=== PATIENT | male | born 1970 ===

== ENCOUNTER 2020-09-09 10:37 | Outpatient (REF) | payer MEDICARE, MEDICAID, SELFPAY ==
--- NOTE | 2020-09-09 11:28 | XR_ITS ---
EXAMINATION: XR TIBIA AND FIBULA, LEFT CLINICAL INFORMATION: Localized swelling, mass or lump. COMPARISON: None. TECHNIQUE: AP and lateral views of the left tibia and fibula were obtained. FINDINGS: Bone alignment is normal. No fracture, dislocation or bone lesion is seen. The joint spaces are normal. There is thinning of the soft tissues of the medial posterior lower leg. No soft tissue mass is not appreciated. XR/XR tibia fibula LT 2V IMPRESSION: Thinning or loss of the soft tissues of the posterior medial lower leg. Adjacent bony structures are unremarkable.
[2020-09-09 11:50] LABS: MANUAL DIFF FLAG NO
[2020-09-09 11:54] LABS: Basophils Percent Auto 0.5 % (0-2); Eosinophils Absolute Auto 0.1 X10*3/uL (0.0-0.4); Eosinophils Percent Auto 1.3 % (0-4); Hematocrit 42.4 % (42-52); Hemoglobin 13.3 g/dl (14.0-18.0); Imm Gran Abs Auto 0.01 X10*3/uL (0.00-0.03); Imm Gran Pct Auto 0.2 % (0.0-0.4); Lymphocytes Absolute Auto 1.9 X10*3/uL (1.2-4.9); Lymphocytes Percent Auto 31.3 % (20-40); Mean Corpuscular HGB Conc 31.4 g/dl (31.0-36.0); Mean Corpuscular Hemoglobin 27.7 pg (27.0-33.0); Mean Corpuscular Volume 88.1 fL (80-98); Monocytes Absolute Auto 0.4 X10*3/uL (0.1-1.2); Monocytes Percent Auto 7.2 % (2-11); Neutrophils Absolute Auto 3.6 X10*3/uL (2.0-8.3); Neutrophils Percent Auto 59.5 % (45-73); Platelet Count 241 X10*3/uL (160-400); Red Blood Count 4.81 X10*6/uL (4.60-5.80); Red Cell Distribution Width 14.5 % (11.0-16.0)
[2020-09-09 12:39] LABS: Anion Gap 17 (12-20); Blood Urea Nitrogen 17 mg/dL (9-16); Calcium 9.7 mg/dL (8.4-10.2); Carbon Dioxide 22 mmol/L (22-29); Chloride 104 mmol/L (96-108); Estimated Glomerular Filt Rate > 60; Glucose Fasting 227 mg/dL (60-99); Potassium 4.5 mmol/l (3.3-5.1); Sodium 138 mmol/L (135-145)
== END 2020-09-09 10:38 | disposition home or self-care (01) ==
LOC: HO.LAB 10:37
PROVIDERS: PCP Internal Medicine; Referring Provider Clinical Nurse Specialist Psychiatric/Mental Health, Adult; Visit Provider Nurse Practitioner Family
DX: R22.42 Localized swelling, mass and lump, left lower limb (principal); Z79.899 Other long term (current) drug therapy
CPT/HCPCS: 36415; 73590; 80048; 85025

== ENCOUNTER 2020-10-14 13:12 | Outpatient (REF) | payer MEDICARE, MEDICAID, SELFPAY ==
[2020-10-14 14:11] LABS: MANUAL DIFF FLAG NO
[2020-10-14 14:14] LABS: Basophils Percent Auto 0.5 % (0-2); Eosinophils Absolute Auto 0.1 X10*3/uL (0.0-0.4); Eosinophils Percent Auto 1.5 % (0-4); Hematocrit 40.2 % (42-52); Hemoglobin 13.2 g/dl (14.0-18.0); Imm Gran Abs Auto 0.02 X10*3/uL (0.00-0.03); Imm Gran Pct Auto 0.3 % (0.0-0.4); Lymphocytes Absolute Auto 2.5 X10*3/uL (1.2-4.9); Lymphocytes Percent Auto 32.3 % (20-40); Mean Corpuscular HGB Conc 32.8 g/dl (31.0-36.0); Mean Corpuscular Hemoglobin 28.8 pg (27.0-33.0); Mean Corpuscular Volume 87.6 fL (80-98); Mean Platelet Volume 12.9 fL (9.4-12.4); Monocytes Absolute Auto 0.6 X10*3/uL (0.1-1.2); Monocytes Percent Auto 7.6 % (2-11); Neutrophils Absolute Auto 4.5 X10*3/uL (2.0-8.3); Neutrophils Percent Auto 57.8 % (45-73); Platelet Count 246 X10*3/uL (160-400); Red Blood Count 4.59 X10*6/uL (4.60-5.80); Red Cell Distribution Width 14.8 % (11.0-16.0); White Blood Count 7.8 X10*3/uL (4.8-10.8)
== END 2020-10-14 13:13 | disposition home or self-care (01) ==
LOC: HO.LABR 13:12
PROVIDERS: PCP Internal Medicine; Visit Provider Clinical Nurse Specialist Psychiatric/Mental Health, Adult
DX: Z79.899 Other long term (current) drug therapy (principal)
CPT/HCPCS: 36415; 85025

== ENCOUNTER → 2020-11-10 12:15 | Outpatient (BNVA) | payer MEDICARE, MEDICAID, SELFPAY | PROVIDERS: PCP Internal Medicine; Referring Provider Internal Medicine; Visit Provider Internal Medicine Endocrinology, Diabetes & Metabolism | DX: Z13.89 Encounter for screening for other disorder (principal) | CPT/HCPCS: Q3014 ==

== ENCOUNTER 2020-11-17 11:10 | Outpatient (REF) | payer MEDICARE, MEDICAID, SELFPAY ==
[2020-11-17 11:55] LABS: MANUAL DIFF FLAG NO
[2020-11-17 11:57] LABS: Basophils Percent Auto 0.6 % (0-2); Eosinophils Absolute Auto 0.1 X10*3/uL (0.0-0.4); Hematocrit 41.9 % (42-52); Hemoglobin 13.3 g/dl (14.0-18.0); Imm Gran Abs Auto 0.02 X10*3/uL (0.00-0.03); Imm Gran Pct Auto 0.3 % (0.0-0.4); Lymphocytes Absolute Auto 2.3 X10*3/uL (1.2-4.9); Lymphocytes Percent Auto 33.7 % (20-40); Mean Corpuscular HGB Conc 31.7 g/dl (31.0-36.0); Mean Corpuscular Hemoglobin 27.8 pg (27.0-33.0); Mean Corpuscular Volume 87.5 fL (80-98); Mean Platelet Volume 12.5 fL (9.4-12.4); Monocytes Absolute Auto 0.5 X10*3/uL (0.1-1.2); Neutrophils Absolute Auto 3.9 X10*3/uL (2.0-8.3); Neutrophils Percent Auto 56.4 % (45-73); Platelet Count 222 X10*3/uL (160-400); Red Blood Count 4.79 X10*6/uL (4.60-5.80); Red Cell Distribution Width 14.5 % (11.0-16.0); White Blood Count 6.9 X10*3/uL (4.8-10.8)
== END 2020-11-17 11:11 | disposition home or self-care (01) ==
LOC: HO.LABR 11:10
PROVIDERS: PCP Internal Medicine; Visit Provider Clinical Nurse Specialist Psychiatric/Mental Health, Adult
DX: Z79.899 Other long term (current) drug therapy (principal)
CPT/HCPCS: 36415; 85025

== ENCOUNTER 2020-12-19 09:55 | Outpatient (REF) | payer MEDICARE, MEDICAID, SELFPAY ==
[2020-12-19 10:48] LABS: Basophils Percent Auto 0.6 % (0-2); Eosinophils Absolute Auto 0.1 X10*3/uL (0.0-0.4); Eosinophils Percent Auto 1.4 % (0-4); Hematocrit 38.8 % (42-52); Hemoglobin 12.3 g/dl (14.0-18.0); Imm Gran Abs Auto 0.02 X10*3/uL (0.00-0.03); Imm Gran Pct Auto 0.3 % (0.0-0.4); Lymphocytes Percent Auto 30.4 % (20-40); MANUAL DIFF FLAG NO; Mean Corpuscular HGB Conc 31.7 g/dl (31.0-36.0); Mean Corpuscular Hemoglobin 27.6 pg (27.0-33.0); Mean Corpuscular Volume 87.2 fL (80-98); Mean Platelet Volume 12.2 fL (9.4-12.4); Monocytes Absolute Auto 0.6 X10*3/uL (0.1-1.2); Monocytes Percent Auto 8.7 % (2-11); Neutrophils Absolute Auto 3.8 X10*3/uL (2.0-8.3); Neutrophils Percent Auto 58.6 % (45-73); Platelet Count 229 X10*3/uL (160-400); Red Blood Count 4.45 X10*6/uL (4.60-5.80); Red Cell Distribution Width 14.2 % (11.0-16.0); White Blood Count 6.5 X10*3/uL (4.8-10.8)
== END 2020-12-19 09:56 | disposition home or self-care (01) ==
LOC: HO.LAB 09:55
PROVIDERS: Visit Provider Clinical Nurse Specialist Psychiatric/Mental Health, Adult
DX: Z79.899 Other long term (current) drug therapy (principal)
CPT/HCPCS: 36415; 85025

== ENCOUNTER 2021-01-12 13:08 | Outpatient (REF) | payer MEDICARE, MEDICAID, SELFPAY ==
[2021-01-12 13:35] LABS: MANUAL DIFF FLAG NO
[2021-01-12 13:38] LABS: Basophils Percent Auto 0.5 % (0-2); Eosinophils Absolute Auto 0.1 X10*3/uL (0.0-0.4); Eosinophils Percent Auto 1.4 % (0-4); Hematocrit 39.9 % (42-52); Hemoglobin 12.9 g/dl (14.0-18.0); Imm Gran Abs Auto 0.02 X10*3/uL (0.00-0.03); Imm Gran Pct Auto 0.2 % (0.0-0.4); Lymphocytes Absolute Auto 2.6 X10*3/uL (1.2-4.9); Lymphocytes Percent Auto 30.7 % (20-40); Mean Corpuscular HGB Conc 32.3 g/dl (31.0-36.0); Mean Corpuscular Hemoglobin 28.2 pg (27.0-33.0); Mean Corpuscular Volume 87.3 fL (80-98); Mean Platelet Volume 11.9 fL (9.4-12.4); Monocytes Absolute Auto 0.6 X10*3/uL (0.1-1.2); Monocytes Percent Auto 6.4 % (2-11); Neutrophils Absolute Auto 5.2 X10*3/uL (2.0-8.3); Neutrophils Percent Auto 60.8 % (45-73); Platelet Count 234 X10*3/uL (160-400); Red Blood Count 4.57 X10*6/uL (4.60-5.80); Red Cell Distribution Width 14.3 % (11.0-16.0); White Blood Count 8.5 X10*3/uL (4.8-10.8)
[2021-01-12 13:58] LABS: Estimated Average Glucose 209 mg/dL; Hemoglobin A1c % 8.9 %
[2021-01-12 14:16] LABS: Alanine Aminotransferase 28 U/L (0-40); Albumin Level 4.4 g/dL (3.5-5.0); Alkaline Phosphatase 41 U/L (39-117); Anion Gap 15 (12-20); Aspartate Amino Transferase 17 U/L (5-37); Bilirubin Total 0.3 mg/dL (0.0-1.0); Blood Urea Nitrogen 19 mg/dL (9-16); Calcium 9.2 mg/dL (8.4-10.2); Carbon Dioxide 26 mmol/L (22-29); Chloride 102 mmol/L (96-108); Cholesterol 145 mg/dL; Estimated Glomerular Filt Rate > 60; Glucose Fasting 183 mg/dL (60-99); HDL Cholesterol 21 mg/dL; Potassium 4.4 mmol/L (3.3-5.1); Sodium 139 mmol/L (135-145); Total Protein 7.8 g/dL (6.5-8.0); Triglycerides 465 mg/dL
[2021-01-12 14:52] LABS: Creatinine Urine 36.53 mg/dL; Microalbumin Urine < 5.0 mg/L
[2021-01-13 07:32] LABS: LDL Cholesterol Direct 89 mg/dL (<100)
== END 2021-01-12 13:09 | disposition home or self-care (01) ==
LOC: HO.LAB 13:08
PROVIDERS: Internal Medicine Endocrinology, Diabetes & Metabolism; PCP Internal Medicine; Visit Provider Clinical Nurse Specialist Psychiatric/Mental Health, Adult
DX: Z79.899 Other long term (current) drug therapy (principal); E11.65 Type 2 diabetes mellitus with hyperglycemia
CPT/HCPCS: 36415; 80053; 80061; 82043; 83036; 83721; 85025

== ENCOUNTER 2021-02-16 12:40 | Outpatient (REF) | payer MEDICARE, MEDICAID, SELFPAY | END 2021-02-16 12:41 | disposition home or self-care (01) | LOC: HO.LABR 12:40 | PROVIDERS: PCP Internal Medicine; Visit Provider Clinical Nurse Specialist Psychiatric/Mental Health, Adult | DX: Z13.89 Encounter for screening for other disorder (principal) | CPT/HCPCS: 36415; 85025 ==

== ENCOUNTER 2021-02-19 12:34 | Outpatient (REF) | payer MEDICARE, MEDICAID, SELFPAY ==
[2021-02-19 13:17] LABS: MANUAL DIFF FLAG NO
[2021-02-19 13:23] LABS: Basophils Percent Auto 0.6 % (0-2); Eosinophils Absolute Auto 0.1 X10*3/uL (0.0-0.4); Eosinophils Percent Auto 1.5 % (0-4); Hematocrit 42.2 % (42-52); Hemoglobin 13.3 g/dl (14.0-18.0); Imm Gran Abs Auto 0.01 X10*3/uL (0.00-0.03); Imm Gran Pct Auto 0.2 % (0.0-0.4); Lymphocytes Absolute Auto 2.1 X10*3/uL (1.2-4.9); Lymphocytes Percent Auto 33.9 % (20-40); Mean Corpuscular HGB Conc 31.5 g/dl (31.0-36.0); Mean Corpuscular Hemoglobin 27.6 pg (27.0-33.0); Mean Corpuscular Volume 87.6 fL (80-98); Mean Platelet Volume 11.8 fL (9.4-12.4); Monocytes Absolute Auto 0.4 X10*3/uL (0.1-1.2); Neutrophils Absolute Auto 3.5 X10*3/uL (2.0-8.3); Neutrophils Percent Auto 56.8 % (45-73); Platelet Count 241 X10*3/uL (160-400); Red Blood Count 4.82 X10*6/uL (4.60-5.80); Red Cell Distribution Width 14.1 % (11.0-16.0); White Blood Count 6.2 X10*3/uL (4.8-10.8)
== END 2021-02-19 12:35 | disposition home or self-care (01) ==
LOC: HO.LABR 12:34
PROVIDERS: PCP Internal Medicine; Visit Provider Clinical Nurse Specialist Psychiatric/Mental Health, Adult
DX: Z79.899 Other long term (current) drug therapy (principal)
CPT/HCPCS: 36415; 85025

== ENCOUNTER 2021-03-10 11:35 | Outpatient (REF) | payer MEDICARE, MEDICAID, SELFPAY ==
[2021-03-10 12:00] LABS: MANUAL DIFF FLAG NO
[2021-03-10 12:06] LABS: Basophils Percent Auto 0.3 % (0-2); Eosinophils Absolute Auto 0.1 X10*3/uL (0.0-0.4); Eosinophils Percent Auto 0.8 % (0-4); Hematocrit 37.6 % (42-52); Hemoglobin 12.1 g/dl (14.0-18.0); Imm Gran Abs Auto 0.05 X10*3/uL (0.00-0.03); Imm Gran Pct Auto 0.4 % (0.0-0.4); Lymphocytes Absolute Auto 1.8 X10*3/uL (1.2-4.9); Lymphocytes Percent Auto 15.8 % (20-40); Mean Corpuscular HGB Conc 32.2 g/dl (31.0-36.0); Mean Corpuscular Hemoglobin 27.9 pg (27.0-33.0); Mean Corpuscular Volume 86.8 fL (80-98); Mean Platelet Volume 12.2 fL (9.4-12.4); Monocytes Absolute Auto 0.9 X10*3/uL (0.1-1.2); Monocytes Percent Auto 7.6 % (2-11); Neutrophils Absolute Auto 8.6 X10*3/uL (2.0-8.3); Neutrophils Percent Auto 75.1 % (45-73); Platelet Count 233 X10*3/uL (160-400); Red Blood Count 4.33 X10*6/uL (4.60-5.80); Red Cell Distribution Width 14.1 % (11.0-16.0); White Blood Count 11.5 X10*3/uL (4.8-10.8)
== END 2021-03-10 11:36 | disposition home or self-care (01) ==
LOC: HO.LABR 11:35
PROVIDERS: PCP Internal Medicine; Visit Provider Clinical Nurse Specialist Psychiatric/Mental Health, Adult
DX: Z79.899 Other long term (current) drug therapy (principal)
CPT/HCPCS: 36415; 85025

== ENCOUNTER → 2021-03-25 14:34 | Outpatient (BNVA) | payer MEDICARE, MEDICAID, SELFPAY | PROVIDERS: PCP Internal Medicine; Visit Provider Internal Medicine Endocrinology, Diabetes & Metabolism | DX: E11.65 Type 2 diabetes mellitus with hyperglycemia (principal); E66.9 Obesity, unspecified; I10 Essential (primary) hypertension; E78.5 Hyperlipidemia, unspecified; E55.9 Vitamin D deficiency, unspecified; Z79.4 Long term (current) use of insulin | CPT/HCPCS: 82947; 99212 ==

== ENCOUNTER 2021-04-07 11:25 | Outpatient (REF) | payer MEDICARE, MEDICAID, SELFPAY ==
[2021-04-07 12:29] LABS: MANUAL DIFF FLAG NO
[2021-04-07 12:43] LABS: Basophils Percent Auto 0.6 % (0-2); Eosinophils Absolute Auto 0.1 X10*3/uL (0.0-0.4); Eosinophils Percent Auto 1.5 % (0-4); Hemoglobin 12.4 g/dl (14.0-18.0); Imm Gran Abs Auto 0.02 X10*3/uL (0.00-0.03); Imm Gran Pct Auto 0.4 % (0.0-0.4); Lymphocytes Absolute Auto 1.5 X10*3/uL (1.2-4.9); Mean Corpuscular Hemoglobin 26.8 pg (27.0-33.0); Mean Corpuscular Volume 86.6 fL (80-98); Mean Platelet Volume 12.5 fL (9.4-12.4); Monocytes Absolute Auto 0.5 X10*3/uL (0.1-1.2); Monocytes Percent Auto 9.4 % (2-11); Neutrophils Absolute Auto 3.3 X10*3/uL (2.0-8.3); Neutrophils Percent Auto 60.1 % (45-73); Platelet Count 214 X10*3/uL (160-400); Red Blood Count 4.62 X10*6/uL (4.60-5.80); Red Cell Distribution Width 14.5 % (11.0-16.0); White Blood Count 5.4 X10*3/uL (4.8-10.8)
[2021-04-07 12:58] LABS: Estimated Average Glucose 217 mg/dL; Hemoglobin A1C 243.0676 umol/L; Hemoglobin A1c % 9.2 %
[2021-04-07 13:19] LABS: Alanine Aminotransferase 28 U/L (0-40); Albumin Level 4.3 g/dL (3.5-5.0); Alkaline Phosphatase 42 U/L (39-117); Anion Gap 14 (12-20); Aspartate Amino Transferase 16 U/L (5-37); Bilirubin Total 0.4 mg/dL (0.0-1.0); Blood Urea Nitrogen 16 mg/dL (9-16); Calcium 9.8 mg/dL (8.4-10.2); Carbon Dioxide 27 mmol/L (22-29); Chloride 104 mmol/L (96-108); Cholesterol 133 mg/dL; Estimated Glomerular Filt Rate > 60; Glucose Random 197 mg/dL (60-115); Iron 61 mcg/dL (45-160); Percent Iron Saturation 15 % (15-50); Potassium 4.4 mmol/L (3.3-5.1); Sodium 141 mmol/L (135-145); Total Iron Binding Capacity 417 mcg/dL (228-428); Total Protein 7.4 g/dL (6.5-8.0); Triglycerides 327 mg/dL; Unsaturated Iron Binding 356 ug/dL
[2021-04-07 13:32] LABS: HDL Cholesterol 22 mg/dL; LDL Cholesterol Calculated 46 mg/dl
[2021-04-07 13:36] LABS: Ferritin 66 ng/mL (20-250)
[2021-04-07 13:44] LABS: Folate 14.8 ng/mL (> or = 4.0); Vitamin B12 409 pg/mL (200-900)
== END 2021-04-07 11:26 | disposition home or self-care (01) ==
LOC: HO.LABR 11:25
PROVIDERS: PCP Internal Medicine; Visit Provider Clinical Nurse Specialist Psychiatric/Mental Health, Adult
DX: Z79.899 Other long term (current) drug therapy (principal)
CPT/HCPCS: 36415; 80053; 80061; 82607; 82728; 82746; 83036; 83540; 84443; 85025

== ENCOUNTER 2021-05-05 12:25 | Outpatient (REF) | payer MEDICARE, MEDICAID, SELFPAY ==
[2021-05-05 13:19] LABS: MANUAL DIFF FLAG NO
[2021-05-05 13:34] LABS: Basophils Percent Auto 0.5 % (0-2); Eosinophils Absolute Auto 0.1 X10*3/uL (0.0-0.4); Eosinophils Percent Auto 1.9 % (0-4); Hemoglobin 12.5 g/dl (14.0-18.0); Imm Gran Abs Auto 0.01 X10*3/uL (0.00-0.03); Imm Gran Pct Auto 0.2 % (0.0-0.4); Lymphocytes Absolute Auto 2.1 X10*3/uL (1.2-4.9); Lymphocytes Percent Auto 36.1 % (20-40); Mean Corpuscular HGB Conc 31.3 g/dl (31.0-36.0); Mean Corpuscular Hemoglobin 27.1 pg (27.0-33.0); Mean Corpuscular Volume 86.8 fL (80-98); Mean Platelet Volume 12.1 fL (9.4-12.4); Monocytes Absolute Auto 0.5 X10*3/uL (0.1-1.2); Monocytes Percent Auto 8.3 % (2-11); Neutrophils Absolute Auto 3.1 X10*3/uL (2.0-8.3); Platelet Count 251 X10*3/uL (160-400); Red Blood Count 4.61 X10*6/uL (4.60-5.80); Red Cell Distribution Width 14.5 % (11.0-16.0); White Blood Count 5.9 X10*3/uL (4.8-10.8)
== END 2021-05-05 12:26 | disposition home or self-care (01) ==
LOC: HO.LABR 12:25
PROVIDERS: PCP Internal Medicine; Visit Provider Clinical Nurse Specialist Psychiatric/Mental Health, Adult
DX: Z79.899 Other long term (current) drug therapy (principal)
CPT/HCPCS: 36415; 85025

== ENCOUNTER 2021-06-05 09:30 | Outpatient (REF) | payer MEDICARE, MEDICAID, SELFPAY ==
[2021-06-05 10:25] LABS: MANUAL DIFF FLAG NO
[2021-06-05 10:28] LABS: Basophils Percent Auto 0.5 % (0-2); Eosinophils Absolute Auto 0.1 X10*3/uL (0.0-0.4); Hematocrit 40.8 % (42-52); Hemoglobin 12.9 g/dl (14.0-18.0); Imm Gran Abs Auto 0.02 X10*3/uL (0.00-0.03); Imm Gran Pct Auto 0.3 % (0.0-0.4); Lymphocytes Absolute Auto 2.5 X10*3/uL (1.2-4.9); Lymphocytes Percent Auto 42.1 % (20-40); Mean Corpuscular HGB Conc 31.6 g/dl (31.0-36.0); Mean Corpuscular Hemoglobin 27.3 pg (27.0-33.0); Mean Corpuscular Volume 86.3 fL (80-98); Mean Platelet Volume 11.9 fL (9.4-12.4); Monocytes Absolute Auto 0.5 X10*3/uL (0.1-1.2); Monocytes Percent Auto 8.7 % (2-11); Neutrophils Absolute Auto 2.7 X10*3/uL (2.0-8.3); Neutrophils Percent Auto 46.4 % (45-73); Platelet Count 230 X10*3/uL (160-400); Red Blood Count 4.73 X10*6/uL (4.60-5.80); Red Cell Distribution Width 14.4 % (11.0-16.0); White Blood Count 5.9 X10*3/uL (4.8-10.8)
== END 2021-06-05 09:31 | disposition home or self-care (01) ==
LOC: HO.LABR 09:30
PROVIDERS: PCP Internal Medicine; Visit Provider Clinical Nurse Specialist Psychiatric/Mental Health, Adult
DX: Z79.899 Other long term (current) drug therapy (principal)
CPT/HCPCS: 36415; 85025

== ENCOUNTER 2021-06-30 11:32 | Outpatient (REF) | payer MEDICARE, MEDICAID, SELFPAY ==
[2021-06-30 12:16] LABS: MANUAL DIFF FLAG NO
[2021-06-30 12:19] LABS: Basophils Percent Auto 0.6 % (0-2); Eosinophils Absolute Auto 0.1 X10*3/uL (0.0-0.4); Eosinophils Percent Auto 2.1 % (0-4); Hematocrit 42.4 % (42-52); Hemoglobin 13.5 g/dl (14.0-18.0); Imm Gran Abs Auto 0.02 X10*3/uL (0.00-0.03); Imm Gran Pct Auto 0.3 % (0.0-0.4); Lymphocytes Absolute Auto 2.3 X10*3/uL (1.2-4.9); Lymphocytes Percent Auto 37.5 % (20-40); Mean Corpuscular HGB Conc 31.8 g/dl (31.0-36.0); Mean Corpuscular Hemoglobin 27.2 pg (27.0-33.0); Mean Corpuscular Volume 85.5 fL (80-98); Mean Platelet Volume 12.1 fL (9.4-12.4); Monocytes Absolute Auto 0.4 X10*3/uL (0.1-1.2); Monocytes Percent Auto 6.7 % (2-11); Neutrophils Absolute Auto 3.3 X10*3/uL (2.0-8.3); Neutrophils Percent Auto 52.8 % (45-73); Platelet Count 231 X10*3/uL (160-400); Red Blood Count 4.96 X10*6/uL (4.60-5.80); Red Cell Distribution Width 14.5 % (11.0-16.0); White Blood Count 6.2 X10*3/uL (4.8-10.8)
== END 2021-06-30 11:33 | disposition home or self-care (01) ==
LOC: HO.LABR 11:32
PROVIDERS: PCP Internal Medicine; Visit Provider Clinical Nurse Specialist Psychiatric/Mental Health, Adult
DX: Z79.899 Other long term (current) drug therapy (principal)
CPT/HCPCS: 36415; 85025

== ENCOUNTER 2021-07-30 10:49 | Outpatient (REF) | payer MEDICARE, MEDICAID, SELFPAY ==
[2021-07-30 14:17] LABS: MANUAL DIFF FLAG NO
[2021-07-30 14:23] LABS: Basophils Percent Auto 0.7 % (0-2); Eosinophils Absolute Auto 0.2 X10*3/uL (0.0-0.4); Eosinophils Percent Auto 3.3 % (0-4); Hematocrit 40.9 % (42-52); Imm Gran Abs Auto 0.01 X10*3/uL (0.00-0.03); Imm Gran Pct Auto 0.2 % (0.0-0.4); Lymphocytes Absolute Auto 2.2 X10*3/uL (1.2-4.9); Mean Corpuscular HGB Conc 31.8 g/dl (31.0-36.0); Mean Corpuscular Hemoglobin 27.5 pg (27.0-33.0); Mean Corpuscular Volume 86.5 fL (80-98); Mean Platelet Volume 12.5 fL (9.4-12.4); Monocytes Absolute Auto 0.5 X10*3/uL (0.1-1.2); Neutrophils Absolute Auto 2.5 X10*3/uL (2.0-8.3); Neutrophils Percent Auto 45.8 % (45-73); Platelet Count 229 X10*3/uL (160-400); Red Blood Count 4.73 X10*6/uL (4.60-5.80); Red Cell Distribution Width 14.6 % (11.0-16.0); White Blood Count 5.4 X10*3/uL (4.8-10.8)
== END 2021-07-30 10:50 | disposition home or self-care (01) ==
LOC: HO.10HDL 10:49
PROVIDERS: Visit Provider Clinical Nurse Specialist Psychiatric/Mental Health, Adult
DX: Z79.899 Other long term (current) drug therapy (principal)
CPT/HCPCS: 36415; 85025

== ENCOUNTER 2021-08-27 12:07 | Outpatient (REF) | payer MEDICARE, MEDICAID, SELFPAY ==
[2021-08-27 13:39] LABS: MANUAL DIFF FLAG NO
[2021-08-27 13:48] LABS: Basophils Absolute Auto 0.1 X10*3/uL (0.0-0.2); Basophils Percent Auto 0.7 % (0-2); Eosinophils Absolute Auto 0.1 X10*3/uL (0.0-0.4); Eosinophils Percent Auto 1.5 % (0-4); Hematocrit 41.1 % (42-52); Hemoglobin 13.2 g/dl (14.0-18.0); Imm Gran Abs Auto 0.03 X10*3/uL (0.00-0.03); Imm Gran Pct Auto 0.4 % (0.0-0.4); Lymphocytes Absolute Auto 2.1 X10*3/uL (1.2-4.9); Mean Corpuscular HGB Conc 32.1 g/dl (31.0-36.0); Mean Corpuscular Hemoglobin 27.6 pg (27.0-33.0); Mean Platelet Volume 11.9 fL (9.4-12.4); Monocytes Absolute Auto 0.5 X10*3/uL (0.1-1.2); Monocytes Percent Auto 8.1 % (2-11); Neutrophils Absolute Auto 3.9 X10*3/uL (2.0-8.3); Neutrophils Percent Auto 58.3 % (45-73); Platelet Count 234 X10*3/uL (160-400); Red Blood Count 4.78 X10*6/uL (4.60-5.80); Red Cell Distribution Width 14.4 % (11.0-16.0); White Blood Count 6.7 X10*3/uL (4.8-10.8)
== END 2021-08-27 12:08 | disposition home or self-care (01) ==
LOC: HO.10HDL 12:07
PROVIDERS: Visit Provider Clinical Nurse Specialist Psychiatric/Mental Health, Adult
DX: Z79.899 Other long term (current) drug therapy (principal)
CPT/HCPCS: 36415; 85025

== ENCOUNTER → 2021-09-18 10:52 | Outpatient (BNVA) | payer MEDICARE, MEDICAID, SELFPAY | PROVIDERS: PCP Internal Medicine; Visit Provider Nurse Practitioner Gerontology | DX: E11.65 Type 2 diabetes mellitus with hyperglycemia (principal); E66.9 Obesity, unspecified; E55.9 Vitamin D deficiency, unspecified; E78.5 Hyperlipidemia, unspecified; I10 Essential (primary) hypertension; Z79.4 Long term (current) use of insulin | CPT/HCPCS: 82947; 83036; 99212 ==

== ENCOUNTER 2021-09-22 12:48 | Outpatient (REF) | payer MEDICARE, MEDICAID, SELFPAY ==
[2021-09-22 13:58] LABS: MANUAL DIFF FLAG NO
[2021-09-22 14:08] LABS: Basophils Percent Auto 0.7 % (0-2); Eosinophils Absolute Auto 0.1 X10*3/uL (0.0-0.4); Eosinophils Percent Auto 1.6 % (0-4); Hematocrit 38.9 % (42.0-52.0); Hemoglobin 12.3 g/dl (14.0-18.0); Imm Gran Abs Auto 0.02 X10*3/uL (0.00-0.03); Imm Gran Pct Auto 0.4 % (0.0-0.4); Lymphocytes Absolute Auto 1.9 X10*3/uL (1.2-4.9); Lymphocytes Percent Auto 33.9 % (20-40); Mean Corpuscular HGB Conc 31.6 g/dl (31.0-36.0); Mean Corpuscular Hemoglobin 27.5 pg (27.0-33.0); Mean Corpuscular Volume 86.8 fL (80.0-98.0); Mean Platelet Volume 12.1 fL (9.4-12.4); Monocytes Absolute Auto 0.4 X10*3/uL (0.1-1.2); Monocytes Percent Auto 6.7 % (2-11); Neutrophils Absolute Auto 3.1 x10*3/uL (2.0-8.3); Neutrophils Percent Auto 56.7 % (45-73); Platelet Count 223 X10*3/uL (160-400); Red Blood Count 4.48 X10*6/uL (4.60-5.80); Red Cell Distribution Width 14.4 % (11.0-16.0); White Blood Count 5.5 X10*3/uL (4.8-10.8)
== END 2021-09-22 12:49 | disposition home or self-care (01) ==
LOC: HO.10HDL 12:48
PROVIDERS: Visit Provider Clinical Nurse Specialist Psychiatric/Mental Health, Adult
DX: Z79.899 Other long term (current) drug therapy (principal)
CPT/HCPCS: 36415; 85025

== ENCOUNTER 2021-10-22 09:53 | Outpatient (REF) | payer MEDICARE, MEDICAID, SELFPAY ==
[2021-10-22 10:32] LABS: MANUAL DIFF FLAG NO
[2021-10-22 10:41] LABS: Basophils Percent Auto 0.4 % (0-2); Eosinophils Absolute Auto 0.1 X10*3/uL (0.0-0.4); Eosinophils Percent Auto 1.9 % (0-4); Imm Gran Abs Auto 0.02 X10*3/uL (0.00-0.03); Imm Gran Pct Auto 0.4 % (0.0-0.4); Lymphocytes Absolute Auto 2.2 X10*3/uL (1.2-4.9); Lymphocytes Percent Auto 37.8 % (20-40); Mean Corpuscular HGB Conc 31.6 g/dl (31.0-36.0); Mean Corpuscular Hemoglobin 27.5 pg (27.0-33.0); Mean Platelet Volume 11.9 fL (9.4-12.4); Monocytes Absolute Auto 0.6 X10*3/uL (0.1-1.2); Monocytes Percent Auto 9.6 % (2-11); Neutrophils Absolute Auto 2.9 x10*3/uL (2.0-8.3); Neutrophils Percent Auto 49.9 % (45-73); Platelet Count 239 X10*3/uL (160-400); Red Blood Count 4.37 X10*6/uL (4.60-5.80); Red Cell Distribution Width 13.9 % (11.0-16.0); White Blood Count 5.7 X10*3/uL (4.8-10.8)
== END 2021-10-22 09:54 | disposition home or self-care (01) ==
LOC: HO.10HDL 09:53
PROVIDERS: Visit Provider Clinical Nurse Specialist Psychiatric/Mental Health, Adult
DX: Z79.899 Other long term (current) drug therapy (principal)
CPT/HCPCS: 36415; 85025

== ENCOUNTER 2021-12-02 10:56 | Outpatient (REF) | payer MEDICARE, MEDICAID, SELFPAY ==
[2021-12-02 13:57] LABS: MANUAL DIFF FLAG NO
[2021-12-02 14:05] LABS: Basophils Absolute Auto 0.1 X10*3/uL (0.0-0.2); Basophils Percent Auto 0.8 % (0-2); Eosinophils Absolute Auto 0.2 X10*3/uL (0.0-0.4); Eosinophils Percent Auto 3.7 % (0-4); Hematocrit 43.1 % (42.0-52.0); Hemoglobin 13.2 g/dl (14.0-18.0); Imm Gran Abs Auto 0.02 X10*3/uL (0.00-0.03); Imm Gran Pct Auto 0.3 % (0.0-0.4); Lymphocytes Absolute Auto 2.1 X10*3/uL (1.2-4.9); Lymphocytes Percent Auto 35.8 % (20-40); Mean Corpuscular HGB Conc 30.6 g/dl (31.0-36.0); Mean Corpuscular Volume 88.1 fL (80.0-98.0); Mean Platelet Volume 12.8 fL (9.4-12.4); Monocytes Absolute Auto 0.5 X10*3/uL (0.1-1.2); Monocytes Percent Auto 7.9 % (2-11); Neutrophils Absolute Auto 3.1 x10*3/uL (2.0-8.3); Neutrophils Percent Auto 51.5 % (45-73); Platelet Count 242 X10*3/uL (160-400); Red Blood Count 4.89 X10*6/uL (4.60-5.80); Red Cell Distribution Width 14.3 % (11.0-16.0)
== END 2021-12-02 10:57 | disposition home or self-care (01) ==
LOC: HO.10HDL 10:56
PROVIDERS: Visit Provider Clinical Nurse Specialist Psychiatric/Mental Health, Adult
DX: Z79.899 Other long term (current) drug therapy (principal)
CPT/HCPCS: 36415; 85025

== ENCOUNTER 2021-12-25 09:23 | Outpatient (REF) | payer MEDICARE, MEDICAID, SELFPAY ==
[2021-12-25 10:53] LABS: MANUAL DIFF FLAG NO
[2021-12-25 10:56] LABS: Basophils Absolute Auto 0.1 X10*3/uL (0.0-0.2); Basophils Percent Auto 0.8 % (0-2); Eosinophils Absolute Auto 0.1 X10*3/uL (0.0-0.4); Eosinophils Percent Auto 1.8 % (0-4); Hematocrit 41.5 % (42.0-52.0); Hemoglobin 13.2 g/dl (14.0-18.0); Imm Gran Abs Auto 0.02 X10*3/uL (0.00-0.03); Imm Gran Pct Auto 0.3 % (0.0-0.4); Lymphocytes Absolute Auto 2.2 X10*3/uL (1.2-4.9); Lymphocytes Percent Auto 36.4 % (20-40); Mean Corpuscular HGB Conc 31.8 g/dl (31.0-36.0); Mean Corpuscular Hemoglobin 27.3 pg (27.0-33.0); Mean Corpuscular Volume 85.7 fL (80.0-98.0); Mean Platelet Volume 12.2 fL (9.4-12.4); Monocytes Absolute Auto 0.5 X10*3/uL (0.1-1.2); Monocytes Percent Auto 8.2 % (2-11); Neutrophils Absolute Auto 3.1 x10*3/uL (2.0-8.3); Neutrophils Percent Auto 52.5 % (45-73); Platelet Count 246 X10*3/uL (160-400); Red Blood Count 4.84 X10*6/uL (4.60-5.80); Red Cell Distribution Width 14.6 % (11.0-16.0)
== END 2021-12-25 09:24 | disposition home or self-care (01) ==
LOC: HO.10HDL 09:23
PROVIDERS: Visit Provider Clinical Nurse Specialist Psychiatric/Mental Health, Adult
DX: Z79.899 Other long term (current) drug therapy (principal)
CPT/HCPCS: 36415; 85025

== ENCOUNTER 2022-01-25 10:35 | Outpatient (REF) | payer MEDICARE, MEDICAID, SELFPAY ==
[2022-01-25 13:21] LABS: MANUAL DIFF FLAG NO
[2022-01-25 13:29] LABS: Basophils Percent Auto 0.6 % (0-2); Eosinophils Absolute Auto 0.1 X10*3/uL (0.0-0.4); Eosinophils Percent Auto 1.9 % (0-4); Hematocrit 43.9 % (42.0-52.0); Hemoglobin 13.7 g/dl (14.0-18.0); Imm Gran Abs Auto 0.02 X10*3/uL (0.00-0.03); Imm Gran Pct Auto 0.3 % (0.0-0.4); Lymphocytes Absolute Auto 2.4 X10*3/uL (1.2-4.9); Lymphocytes Percent Auto 35.9 % (20-40); Mean Corpuscular HGB Conc 31.2 g/dl (31.0-36.0); Mean Corpuscular Hemoglobin 27.2 pg (27.0-33.0); Mean Corpuscular Volume 87.3 fL (80.0-98.0); Mean Platelet Volume 12.6 fL (9.4-12.4); Monocytes Absolute Auto 0.6 X10*3/uL (0.1-1.2); Monocytes Percent Auto 8.7 % (2-11); Neut%MD 52.6 %; Neutrophils Absolute Auto 3.6 x10*3/uL (2.0-8.3); Neutrophils Percent Auto 52.6 % (45-73); Platelet Count 277 X10*3/uL (160-400); Red Blood Count 5.03 X10*6/uL (4.60-5.80); Red Cell Distribution Width 14.7 % (11.0-16.0); WBCANC 6.8 X10*3/uL; White Blood Count 6.8 X10*3/uL (4.8-10.8)
== END 2022-01-25 10:36 | disposition home or self-care (01) ==
LOC: HO.10HDL 10:35
PROVIDERS: Visit Provider Clinical Nurse Specialist Psychiatric/Mental Health, Adult
DX: Z79.899 Other long term (current) drug therapy (principal)
CPT/HCPCS: 36415; 85025

== ENCOUNTER 2022-02-19 10:54 | Outpatient (REF) | payer MEDICARE, MEDICAID, SELFPAY ==
[2022-02-19 11:14] LABS: MANUAL DIFF FLAG NO
[2022-02-19 11:34] LABS: Basophils Percent Auto 0.5 % (0-2); Eosinophils Absolute Auto 0.1 X10*3/uL (0.0-0.4); Eosinophils Percent Auto 1.9 % (0-4); Hematocrit 38.5 % (42.0-52.0); Hemoglobin 12.4 g/dl (14.0-18.0); Imm Gran Abs Auto 0.04 X10*3/uL (0.00-0.03); Imm Gran Pct Auto 0.7 % (0.0-0.4); Lymphocytes Absolute Auto 2.2 X10*3/uL (1.2-4.9); Lymphocytes Percent Auto 37.8 % (20-40); Mean Corpuscular HGB Conc 32.2 g/dl (31.0-36.0); Mean Corpuscular Hemoglobin 27.9 pg (27.0-33.0); Mean Corpuscular Volume 86.5 fL (80.0-98.0); Mean Platelet Volume 11.9 fL (9.4-12.4); Monocytes Absolute Auto 0.6 X10*3/uL (0.1-1.2); Monocytes Percent Auto 9.4 % (2-11); Neutrophils Absolute Auto 2.9 x10*3/uL (2.0-8.3); Neutrophils Percent Auto 49.7 % (45-73); Platelet Count 253 X10*3/uL (160-400); Red Blood Count 4.45 X10*6/uL (4.60-5.80); Red Cell Distribution Width 14.6 % (11.0-16.0); White Blood Count 5.9 X10*3/uL (4.8-10.8)
== END 2022-02-19 10:55 | disposition home or self-care (01) ==
LOC: HO.LABR 10:54
PROVIDERS: PCP Internal Medicine; Visit Provider Clinical Nurse Specialist Psychiatric/Mental Health, Adult
DX: Z79.899 Other long term (current) drug therapy (principal)
CPT/HCPCS: 36415; 85025

== ENCOUNTER → 2022-03-09 10:36 | Outpatient (BNVA) | payer MEDICARE, MEDICAID, SELFPAY | PROVIDERS: PCP Internal Medicine; Visit Provider Nurse Practitioner Gerontology | DX: E11.65 Type 2 diabetes mellitus with hyperglycemia (principal); E78.5 Hyperlipidemia, unspecified; E55.9 Vitamin D deficiency, unspecified; E66.9 Obesity, unspecified; I10 Essential (primary) hypertension; Z79.4 Long term (current) use of insulin; Z68.35 Body mass index [BMI] 35.0-35.9, adult | CPT/HCPCS: 82947; 99212 ==

== ENCOUNTER 2022-03-18 13:11 | Outpatient (REF) | payer MEDICARE, MEDICAID, SELFPAY ==
[2022-03-18 13:21] LABS: MANUAL DIFF FLAG NO
[2022-03-18 13:40] LABS: Basophils Absolute Auto 0.1 X10*3/uL (0.0-0.2); Basophils Percent Auto 0.8 % (0-2); Eosinophils Absolute Auto 0.1 X10*3/uL (0.0-0.4); Eosinophils Percent Auto 1.6 % (0-4); Hematocrit 39.1 % (42.0-52.0); Hemoglobin 12.3 g/dl (14.0-18.0); Imm Gran Abs Auto 0.04 X10*3/uL (0.00-0.03); Imm Gran Pct Auto 0.6 % (0.0-0.4); Lymphocytes Absolute Auto 2.3 X10*3/uL (1.2-4.9); Lymphocytes Percent Auto 37.2 % (20-40); Mean Corpuscular HGB Conc 31.5 g/dl (31.0-36.0); Mean Corpuscular Hemoglobin 27.8 pg (27.0-33.0); Mean Corpuscular Volume 88.5 fL (80.0-98.0); Monocytes Absolute Auto 0.6 X10*3/uL (0.1-1.2); Monocytes Percent Auto 8.9 % (2-11); Neutrophils Absolute Auto 3.2 x10*3/uL (2.0-8.3); Neutrophils Percent Auto 50.9 % (45-73); Platelet Count 236 X10*3/uL (160-400); Red Blood Count 4.42 X10*6/uL (4.60-5.80); Red Cell Distribution Width 14.6 % (11.0-16.0); White Blood Count 6.3 X10*3/uL (4.8-10.8)
== END 2022-03-18 13:12 | disposition home or self-care (01) ==
LOC: HO.LABR 13:11
PROVIDERS: PCP Internal Medicine; Visit Provider Clinical Nurse Specialist Psychiatric/Mental Health, Adult
DX: Z79.899 Other long term (current) drug therapy (principal)
CPT/HCPCS: 36415; 85025

== ENCOUNTER 2022-04-13 12:04 | Outpatient (REF) | payer MEDICARE, MEDICAID, SELFPAY ==
[2022-04-13 12:17] LABS: MANUAL DIFF FLAG NO
[2022-04-13 12:55] LABS: Basophils Percent Auto 0.6 % (0-2); Eosinophils Absolute Auto 0.1 X10*3/uL (0.0-0.4); Eosinophils Percent Auto 1.8 % (0-4); Hemoglobin 12.9 g/dl (14.0-18.0); Imm Gran Abs Auto 0.03 X10*3/uL (0.00-0.03); Imm Gran Pct Auto 0.5 % (0.0-0.4); Mean Corpuscular HGB Conc 32.3 g/dl (31.0-36.0); Mean Corpuscular Hemoglobin 27.7 pg (27.0-33.0); Mean Corpuscular Volume 85.8 fL (80.0-98.0); Mean Platelet Volume 12.2 fL (9.4-12.4); Monocytes Absolute Auto 0.5 X10*3/uL (0.1-1.2); Monocytes Percent Auto 8.1 % (2-11); Neutrophils Absolute Auto 3.5 x10*3/uL (2.0-8.3); Platelet Count 249 X10*3/uL (160-400); Red Blood Count 4.66 X10*6/uL (4.60-5.80); Red Cell Distribution Width 14.2 % (11.0-16.0); White Blood Count 6.2 X10*3/uL (4.8-10.8)
== END 2022-04-13 12:05 | disposition home or self-care (01) ==
LOC: HO.LABR 12:04
PROVIDERS: PCP Internal Medicine; Visit Provider Clinical Nurse Specialist Psychiatric/Mental Health, Adult
DX: Z79.899 Other long term (current) drug therapy (principal)
CPT/HCPCS: 36415; 85025

== ENCOUNTER → 2022-04-23 08:51 | Outpatient (BNVA) | payer MEDICARE, MEDICAID, SELFPAY | PROVIDERS: PCP Internal Medicine; Visit Provider Nurse Practitioner Gerontology | DX: E11.65 Type 2 diabetes mellitus with hyperglycemia (principal); I10 Essential (primary) hypertension; E78.5 Hyperlipidemia, unspecified; E55.9 Vitamin D deficiency, unspecified; E66.9 Obesity, unspecified; Z68.34 Body mass index [BMI] 34.0-34.9, adult; Z79.4 Long term (current) use of insulin | CPT/HCPCS: 82947; 99212 ==

== ENCOUNTER 2022-05-13 13:40 | Outpatient (REF) | payer MEDICARE, MEDICAID, SELFPAY ==
[2022-05-13 13:55] LABS: MANUAL DIFF FLAG NO
[2022-05-13 14:15] LABS: Basophils Absolute Auto 0.1 X10*3/uL (0.0-0.2); Basophils Percent Auto 0.8 % (0-2); Eosinophils Absolute Auto 0.1 X10*3/uL (0.0-0.4); Eosinophils Percent Auto 1.6 % (0-4); Hematocrit 39.2 % (42.0-52.0); Hemoglobin 12.5 g/dl (14.0-18.0); Imm Gran Abs Auto 0.02 X10*3/uL (0.00-0.03); Imm Gran Pct Auto 0.3 % (0.0-0.4); Lymphocytes Absolute Auto 2.6 X10*3/uL (1.2-4.9); Lymphocytes Percent Auto 40.7 % (20-40); Mean Corpuscular HGB Conc 31.9 g/dl (31.0-36.0); Mean Corpuscular Hemoglobin 27.6 pg (27.0-33.0); Mean Corpuscular Volume 86.5 fL (80.0-98.0); Mean Platelet Volume 11.7 fL (9.4-12.4); Monocytes Absolute Auto 0.5 X10*3/uL (0.1-1.2); Neutrophils Absolute Auto 3.1 x10*3/uL (2.0-8.3); Neutrophils Percent Auto 48.6 % (45-73); Platelet Count 247 X10*3/uL (160-400); Red Blood Count 4.53 X10*6/uL (4.60-5.80); Red Cell Distribution Width 14.3 % (11.0-16.0); White Blood Count 6.4 X10*3/uL (4.8-10.8)
== END 2022-05-13 13:41 | disposition home or self-care (01) ==
LOC: HO.LAB 13:40
PROVIDERS: Absent Provider Internal Medicine; PCP Internal Medicine; Visit Provider Clinical Nurse Specialist Psychiatric/Mental Health, Adult
DX: K21.9 Gastro-esophageal reflux disease without esophagitis (principal); Z12.11 Encounter for screening for malignant neoplasm of colon; Z79.899 Other long term (current) drug therapy
CPT/HCPCS: 36415; 85025; 99202; 99212

== ENCOUNTER 2022-06-14 13:41 | Outpatient (REF) | payer MEDICARE, MEDICAID, SELFPAY ==
[2022-06-14 13:52] LABS: MANUAL DIFF FLAG NO
[2022-06-14 14:34] LABS: Basophils Percent Auto 0.5 % (0-2); Eosinophils Absolute Auto 0.1 X10*3/uL (0.0-0.4); Eosinophils Percent Auto 0.9 % (0-4); Hematocrit 42.7 % (42.0-52.0); Hemoglobin 13.5 g/dl (14.0-18.0); Imm Gran Abs Auto 0.01 X10*3/uL (0.00-0.03); Imm Gran Pct Auto 0.2 % (0.0-0.4); Lymphocytes Absolute Auto 1.8 X10*3/uL (1.2-4.9); Mean Corpuscular HGB Conc 31.6 g/dl (31.0-36.0); Mean Corpuscular Hemoglobin 27.6 pg (27.0-33.0); Mean Corpuscular Volume 87.1 fL (80.0-98.0); Mean Platelet Volume 12.5 fL (9.4-12.4); Monocytes Absolute Auto 0.6 X10*3/uL (0.1-1.2); Monocytes Percent Auto 10.6 % (2-11); Neutrophils Absolute Auto 3.4 x10*3/uL (2.0-8.3); Neutrophils Percent Auto 57.8 % (45-73); Platelet Count 206 X10*3/uL (160-400); Red Cell Distribution Width 15.2 % (11.0-16.0); White Blood Count 5.8 X10*3/uL (4.8-10.8)
== END 2022-06-14 13:42 | disposition home or self-care (01) ==
LOC: HO.LABR 13:41
PROVIDERS: PCP Internal Medicine; Visit Provider Clinical Nurse Specialist Psychiatric/Mental Health, Adult
DX: Z79.899 Other long term (current) drug therapy (principal)
CPT/HCPCS: 36415; 85025

== ENCOUNTER 2022-07-06 11:39 | Outpatient (REF) | payer MEDICARE, MEDICAID, SELFPAY ==
[2022-07-06 11:55] LABS: MANUAL DIFF FLAG NO
[2022-07-06 12:15] LABS: Basophils Percent Auto 0.6 % (0-2); Eosinophils Absolute Auto 0.1 X10*3/uL (0.0-0.4); Eosinophils Percent Auto 1.7 % (0-4); Hematocrit 39.4 % (42.0-52.0); Hemoglobin 12.6 g/dl (14.0-18.0); Imm Gran Abs Auto 0.02 X10*3/uL (0.00-0.03); Imm Gran Pct Auto 0.3 % (0.0-0.4); Lymphocytes Absolute Auto 2.2 X10*3/uL (1.2-4.9); Lymphocytes Percent Auto 34.5 % (20-40); Mean Corpuscular Hemoglobin 27.4 pg (27.0-33.0); Mean Corpuscular Volume 85.7 fL (80.0-98.0); Mean Platelet Volume 11.9 fL (9.4-12.4); Monocytes Absolute Auto 0.5 X10*3/uL (0.1-1.2); Monocytes Percent Auto 7.2 % (2-11); Neutrophils Absolute Auto 3.6 x10*3/uL (2.0-8.3); Neutrophils Percent Auto 55.7 % (45-73); Platelet Count 259 X10*3/uL (160-400); Red Cell Distribution Width 14.6 % (11.0-16.0); White Blood Count 6.4 X10*3/uL (4.8-10.8)
== END 2022-07-06 11:40 | disposition home or self-care (01) ==
LOC: HO.LAB 11:39
PROVIDERS: PCP Internal Medicine; Visit Provider Clinical Nurse Specialist Psychiatric/Mental Health, Adult
DX: Z79.899 Other long term (current) drug therapy (principal)
CPT/HCPCS: 36415; 84550; 85025

== ENCOUNTER 2022-08-04 12:41 | Outpatient (REF) | payer MEDICARE, MEDICAID, SELFPAY ==
[2022-08-04 12:55] LABS: MANUAL DIFF FLAG NO
[2022-08-04 13:14] LABS: Basophils Absolute Auto 0.1 X10*3/uL (0.0-0.2); Basophils Percent Auto 0.8 % (0-2); Eosinophils Absolute Auto 0.1 X10*3/uL (0.0-0.4); Eosinophils Percent Auto 1.8 % (0-4); Hematocrit 41.3 % (42.0-52.0); Hemoglobin 13.1 g/dl (14.0-18.0); Imm Gran Abs Auto 0.02 X10*3/uL (0.00-0.03); Imm Gran Pct Auto 0.3 % (0.0-0.4); Lymphocytes Absolute Auto 2.4 X10*3/uL (1.2-4.9); Lymphocytes Percent Auto 39.7 % (20-40); Mean Corpuscular HGB Conc 31.7 g/dl (31.0-36.0); Mean Corpuscular Hemoglobin 27.5 pg (27.0-33.0); Mean Corpuscular Volume 86.6 fL (80.0-98.0); Mean Platelet Volume 11.8 fL (9.4-12.4); Monocytes Absolute Auto 0.7 X10*3/uL (0.1-1.2); Neutrophils Absolute Auto 2.8 x10*3/uL (2.0-8.3); Neutrophils Percent Auto 46.4 % (45-73); Platelet Count 275 X10*3/uL (160-400); Red Blood Count 4.77 X10*6/uL (4.60-5.80); Red Cell Distribution Width 14.8 % (11.0-16.0)
[2022-08-04 13:42] LABS: Creatinine Urine 78.39 mg/dL; Microalbumin Urine < 5.0 mg/L
[2022-08-04 13:46] LABS: Alanine Aminotransferase 26 U/L (0-40); Albumin Level 4.5 g/dL (3.5-5.0); Alkaline Phosphatase 52 U/L (39-117); Anion Gap 18 (12-20); Aspartate Amino Transferase 15 U/L (5-37); Bilirubin Total 0.3 mg/dL (0.0-1.0); Blood Urea Nitrogen 10 mg/dL (9-16); Calcium 9.6 mg/dL (8.4-10.2); Carbon Dioxide 24 mmol/L (22-29); Chloride 101 mmol/L (96-108); Cholesterol 133 mg/dL; Estimated Glomerular Filt Rate > 60; Glucose Fasting 199 mg/dL (60-99); HDL Cholesterol 18 mg/dL; LDL Cholesterol Calculated 51 mg/dl; Potassium 4.1 mmol/L (3.3-5.1); Sodium 139 mmol/L (135-145); Total Protein 7.7 g/dL (6.5-8.0); Triglycerides 324 mg/dL
[2022-08-04 13:47] LABS: Creatinine Urine 76.79 mg/dL
[2022-08-04 14:01] LABS: Free T4 (Free Thyroxine) 1.15 ng/dL (0.71-1.85); Prostate Specific Antigen Scr 0.87 ng/mL (<0.05-4.0); Vitamin D 25-OH Total 41.7 ng/mL (>30)
[2022-08-04 14:15] LABS: Vitamin B12 417 pg/mL (200-900)
== END 2022-08-04 12:42 | disposition home or self-care (01) ==
LOC: HO.LABR 12:41
PROVIDERS: PCP Internal Medicine; Visit Provider Clinical Nurse Specialist Psychiatric/Mental Health, Adult
DX: Z12.5 Encounter for screening for malignant neoplasm of prostate (principal); E11.65 Type 2 diabetes mellitus with hyperglycemia; E55.9 Vitamin D deficiency, unspecified; Z79.4 Long term (current) use of insulin; Z79.899 Other long term (current) drug therapy
CPT/HCPCS: 36415; 80053; 80061; 82043; 82306; 82607; 82746; 84153; 84439; 84443; 85025

== ENCOUNTER 2022-08-10 09:13 | Outpatient (REF) | payer MEDICARE, MEDICAID, SELFPAY ==
--- NOTE | ~2022-08-10 | US_ITS ---
EXAMINATION: US ABDOMEN COMPLETE CLINICAL INFORMATION: Other specified abnormal findings of blood chemistry. COMPARISON: CT abdomen and pelvis 01/05/2013. TECHNIQUE: Real-time imaging of the abdominal viscera. FINDINGS: PANCREAS: Not visualized due to bowel gas ABDOMINAL AORTA: Not visualized due to bowel gas INFERIOR VENA CAVA: Not visualized due to bowel gas LIVER: Enlarged echogenic liver. The liver contour is normal. No focal hepatic lesion. There is no intrahepatic biliary duct dilatation seen. GALLBLADDER: Slightly contracted and not well visualized. No gallstone seen. COMMON BILE DUCT: Normal in caliber measuring 0.45 cm in diameter. RIGHT KIDNEY: Question 5 mm upper pole stone. No hydronephrosis or focal parenchymal lesions. The kidney measures 14.0 cm in maximum dimension. LEFT KIDNEY: Normal. No hydronephrosis. No renal calculi or focal parenchymal lesions. The kidney measures 13.6 cm in maximum dimension. SPLEEN: Normal. The spleen measures 9.5 cm in maximum dimension. FREE FLUID: None. US/US abdomen complete IMPRESSION: Limited exam. Enlarged echogenic liver. Differential would include fatty infiltration and hepatocellular disease. Question right renal stone. Limited visualization of the pancreas, aorta, IVC and gallbladder.
--- NOTE | ~2022-08-10 | XR_ITS ---
EXAMINATION: XR RIBS, RIGHT CLINICAL INFORMATION: Chest pain COMPARISON: Previous chest and left rib x-ray November 2018 TECHNIQUE: Multiple views of the right ribs and one view of the chest were obtained. FINDINGS: Lungs are clear. No consolidation, pneumothorax, or pleural effusion. The cardiomediastinal silhouette and pulmonary vasculature are normal. There are degenerative changes of the spine. No acute rib fracture is seen. XR/XR ribs RT min 3V w CXR1V IMPRESSION: No evidence for acute disease in the chest. No acute rib fracture is seen.
== END 2022-08-10 09:14 | disposition home or self-care (01) ==
LOC: HO.US 09:13
PROVIDERS: Visit Provider Internal Medicine
DX: R07.9 Chest pain, unspecified (principal); R10.11 Right upper quadrant pain; R79.89 Other specified abnormal findings of blood chemistry
CPT/HCPCS: 71101; 76700

== ENCOUNTER 2022-08-26 11:49 | Outpatient (REF) | payer MEDICARE, MEDICAID, SELFPAY ==
[2022-08-26 12:23] LABS: MANUAL DIFF FLAG NO
[2022-08-26 13:07] LABS: Basophils Absolute Auto 0.1 X10*3/uL (0.0-0.2); Basophils Percent Auto 1.1 % (0-2); Eosinophils Absolute Auto 0.1 X10*3/uL (0.0-0.4); Eosinophils Percent Auto 1.8 % (0-4); Hematocrit 39.9 % (42.0-52.0); Hemoglobin 12.8 g/dl (14.0-18.0); Imm Gran Abs Auto 0.02 X10*3/uL (0.00-0.03); Imm Gran Pct Auto 0.4 % (0.0-0.4); Lymphocytes Absolute Auto 2.2 X10*3/uL (1.2-4.9); Lymphocytes Percent Auto 38.2 % (20-40); Mean Corpuscular HGB Conc 32.1 g/dl (31.0-36.0); Mean Corpuscular Hemoglobin 27.8 pg (27.0-33.0); Mean Corpuscular Volume 86.6 fL (80.0-98.0); Mean Platelet Volume 12.1 fL (9.4-12.4); Monocytes Absolute Auto 0.6 X10*3/uL (0.1-1.2); Neutrophils Absolute Auto 2.8 x10*3/uL (2.0-8.3); Neutrophils Percent Auto 48.5 % (45-73); Platelet Count 279 X10*3/uL (160-400); Red Blood Count 4.61 X10*6/uL (4.60-5.80); White Blood Count 5.7 X10*3/uL (4.8-10.8)
[2022-08-26 13:27] LABS: Alanine Aminotransferase 25 U/L (0-40); Albumin Level 4.6 g/dL (3.5-5.0); Alkaline Phosphatase 53 U/L (39-117); Anion Gap 16 (12-20); Aspartate Amino Transferase 14 U/L (5-37); Bilirubin Total < 0.2 mg/dL (0.0-1.0); Blood Urea Nitrogen 14 mg/dL (9-16); Calcium 9.9 mg/dL (8.4-10.2); Carbon Dioxide 27 mmol/L (22-29); Chloride 105 mmol/L (96-108); Cholesterol 142 mg/dL; Estimated Glomerular Filt Rate > 60; Glucose Random 119 mg/dL (60-115); HDL Cholesterol 21 mg/dL; LDL Cholesterol Calculated 69 mg/dl; Potassium 4.4 mmol/L (3.3-5.1); Sodium 144 mmol/L (135-145); Total Protein 7.9 g/dL (6.5-8.0); Triglycerides 263 mg/dL
[2022-08-26 13:52] LABS: Creatinine Urine 85.91 mg/dL; Microalbumin Urine < 5.0 mg/L
== END 2022-08-26 11:50 | disposition home or self-care (01) ==
LOC: HO.LABR 11:49
PROVIDERS: PCP Internal Medicine; Visit Provider Clinical Nurse Specialist Psychiatric/Mental Health, Adult
DX: E11.65 Type 2 diabetes mellitus with hyperglycemia (principal); E78.00 Pure hypercholesterolemia, unspecified; Z79.4 Long term (current) use of insulin; Z79.899 Other long term (current) drug therapy
CPT/HCPCS: 36415; 80053; 80061; 82043; 85025

== ENCOUNTER 2022-09-28 11:39 | Outpatient (REF) | payer MEDICARE, MEDICAID, SELFPAY ==
[2022-09-28 11:53] LABS: MANUAL DIFF FLAG NO
[2022-09-28 12:26] LABS: Basophils Absolute Auto 0.1 X10*3/uL (0.0-0.2); Basophils Percent Auto 0.8 % (0-2); Eosinophils Absolute Auto 0.1 X10*3/uL (0.0-0.4); Hemoglobin 13.7 g/dl (14.0-18.0); Imm Gran Abs Auto 0.02 X10*3/uL (0.00-0.03); Imm Gran Pct Auto 0.3 % (0.0-0.4); Lymphocytes Absolute Auto 2.6 X10*3/uL (1.2-4.9); Lymphocytes Percent Auto 39.1 % (20-40); Mean Corpuscular HGB Conc 31.9 g/dl (31.0-36.0); Mean Corpuscular Hemoglobin 28.1 pg (27.0-33.0); Mean Corpuscular Volume 88.1 fL (80.0-98.0); Monocytes Absolute Auto 0.6 X10*3/uL (0.1-1.2); Neutrophils Absolute Auto 3.3 x10*3/uL (2.0-8.3); Neutrophils Percent Auto 48.8 % (45-73); Platelet Count 281 X10*3/uL (160-400); Red Blood Count 4.88 X10*6/uL (4.60-5.80); Red Cell Distribution Width 14.4 % (11.0-16.0); White Blood Count 6.7 X10*3/uL (4.8-10.8)
== END 2022-09-28 11:40 | disposition home or self-care (01) ==
LOC: HO.LABR 11:39
PROVIDERS: PCP Internal Medicine; Visit Provider Clinical Nurse Specialist Psychiatric/Mental Health, Adult
DX: Z79.899 Other long term (current) drug therapy (principal)
CPT/HCPCS: 36415; 85025

== ENCOUNTER 2022-11-12 10:47 | Outpatient (REF) | payer MEDICARE, MEDICAID, SELFPAY ==
[2022-11-12 10:58] LABS: MANUAL DIFF FLAG NO
[2022-11-12 11:57] LABS: Basophils Percent Auto 0.6 % (0-2); Eosinophils Absolute Auto 0.1 X10*3/uL (0.0-0.4); Eosinophils Percent Auto 1.8 % (0-4); Hematocrit 40.9 % (42.0-52.0); Hemoglobin 12.9 g/dl (14.0-18.0); Imm Gran Abs Auto 0.03 X10*3/uL (0.00-0.03); Imm Gran Pct Auto 0.5 % (0.0-0.4); Lymphocytes Absolute Auto 2.4 X10*3/uL (1.2-4.9); Lymphocytes Percent Auto 38.6 % (20-40); Mean Corpuscular HGB Conc 31.5 g/dl (31.0-36.0); Mean Corpuscular Hemoglobin 27.4 pg (27.0-33.0); Mean Corpuscular Volume 86.8 fL (80.0-98.0); Mean Platelet Volume 12.6 fL (9.4-12.4); Monocytes Absolute Auto 0.5 X10*3/uL (0.1-1.2); Monocytes Percent Auto 7.3 % (2-11); Neutrophils Absolute Auto 3.2 x10*3/uL (2.0-8.3); Neutrophils Percent Auto 51.2 % (45-73); Platelet Count 225 X10*3/uL (160-400); Red Blood Count 4.71 X10*6/uL (4.60-5.80); Red Cell Distribution Width 14.4 % (11.0-16.0); White Blood Count 6.2 X10*3/uL (4.8-10.8)
== END 2022-11-12 10:48 | disposition home or self-care (01) ==
LOC: HO.LABR 10:47
PROVIDERS: PCP Internal Medicine; Visit Provider Clinical Nurse Specialist Psychiatric/Mental Health, Adult
DX: Z79.899 Other long term (current) drug therapy (principal)
CPT/HCPCS: 36415; 85025

== ENCOUNTER 2022-12-02 11:10 | Outpatient (REF) | payer MEDICARE, MEDICAID, SELFPAY ==
[2022-12-02 11:22] LABS: MANUAL DIFF FLAG NO
[2022-12-02 11:54] LABS: Basophils Percent Auto 0.6 % (0-2); Eosinophils Absolute Auto 0.1 X10*3/uL (0.0-0.4); Eosinophils Percent Auto 1.5 % (0-4); Hematocrit 42.5 % (42.0-52.0); Hemoglobin 13.5 g/dl (14.0-18.0); Imm Gran Abs Auto 0.04 X10*3/uL (0.00-0.03); Imm Gran Pct Auto 0.6 % (0.0-0.4); Lymphocytes Absolute Auto 2.5 X10*3/uL (1.2-4.9); Lymphocytes Percent Auto 33.7 % (20-40); Mean Corpuscular HGB Conc 31.8 g/dl (31.0-36.0); Mean Corpuscular Hemoglobin 27.1 pg (27.0-33.0); Mean Corpuscular Volume 85.3 fL (80.0-98.0); Mean Platelet Volume 12.4 fL (9.4-12.4); Monocytes Absolute Auto 0.6 X10*3/uL (0.1-1.2); Monocytes Percent Auto 8.8 % (2-11); Neutrophils Percent Auto 54.8 % (45-73); Platelet Count 295 X10*3/uL (160-400); Red Blood Count 4.98 X10*6/uL (4.60-5.80); Red Cell Distribution Width 14.6 % (11.0-16.0); White Blood Count 7.3 X10*3/uL (4.8-10.8)
== END 2022-12-02 11:11 | disposition home or self-care (01) ==
LOC: HO.LAB 11:10
PROVIDERS: PCP Internal Medicine; Visit Provider Clinical Nurse Specialist Psychiatric/Mental Health, Adult
DX: Z79.899 Other long term (current) drug therapy (principal)
CPT/HCPCS: 36415; 85025

== ENCOUNTER 2022-12-28 12:13 | Outpatient (REF) | payer MEDICARE, MEDICAID, SELFPAY ==
[2022-12-28 12:27] LABS: MANUAL DIFF FLAG NO
[2022-12-28 13:20] LABS: Basophils Absolute Auto 0.1 X10*3/uL (0.0-0.2); Basophils Percent Auto 0.9 % (0-2); Eosinophils Absolute Auto 0.1 X10*3/uL (0.0-0.4); Eosinophils Percent Auto 1.9 % (0-4); Hematocrit 42.6 % (42.0-52.0); Hemoglobin 13.2 g/dl (14.0-18.0); Imm Gran Abs Auto 0.02 X10*3/uL (0.00-0.03); Imm Gran Pct Auto 0.3 % (0.0-0.4); Lymphocytes Absolute Auto 2.5 X10*3/uL (1.2-4.9); Lymphocytes Percent Auto 42.8 % (20-40); Mean Corpuscular Hemoglobin 27.7 pg (27.0-33.0); Mean Corpuscular Volume 89.5 fL (80.0-98.0); Mean Platelet Volume 12.6 fL (9.4-12.4); Monocytes Absolute Auto 0.5 X10*3/uL (0.1-1.2); Monocytes Percent Auto 8.4 % (2-11); Neutrophils Absolute Auto 2.7 x10*3/uL (2.0-8.3); Neutrophils Percent Auto 45.7 % (45-73); Platelet Count 231 X10*3/uL (160-400); Red Blood Count 4.76 X10*6/uL (4.60-5.80); Red Cell Distribution Width 15.2 % (11.0-16.0); White Blood Count 5.9 X10*3/uL (4.8-10.8)
== END 2022-12-28 12:14 | disposition home or self-care (01) ==
LOC: HO.LABR 12:13
PROVIDERS: Visit Provider Clinical Nurse Specialist Psychiatric/Mental Health, Adult
DX: Z79.899 Other long term (current) drug therapy (principal)
CPT/HCPCS: 36415; 85025

== ENCOUNTER 2023-01-26 12:24 | Outpatient (REF) | payer MEDICARE, MEDICAID, SELFPAY ==
[2023-01-26 12:32] LABS: MANUAL DIFF FLAG NO
[2023-01-26 12:59] LABS: Basophils Percent Auto 0.5 % (0-2); Eosinophils Absolute Auto 0.1 X10*3/uL (0.0-0.4); Eosinophils Percent Auto 2.2 % (0-4); Hematocrit 41.8 % (42.0-52.0); Hemoglobin 13.4 g/dl (14.0-18.0); Imm Gran Abs Auto 0.01 X10*3/uL (0.00-0.03); Imm Gran Pct Auto 0.2 % (0.0-0.4); Lymphocytes Absolute Auto 2.7 X10*3/uL (1.2-4.9); Lymphocytes Percent Auto 44.7 % (20-40); Mean Corpuscular HGB Conc 32.1 g/dl (31.0-36.0); Mean Corpuscular Hemoglobin 27.6 pg (27.0-33.0); Mean Corpuscular Volume 86.2 fL (80.0-98.0); Monocytes Absolute Auto 0.4 X10*3/uL (0.1-1.2); Monocytes Percent Auto 6.2 % (2-11); Neutrophils Absolute Auto 2.7 x10*3/uL (2.0-8.3); Neutrophils Percent Auto 46.2 % (45-73); Platelet Count 262 X10*3/uL (160-400); Red Blood Count 4.85 X10*6/uL (4.60-5.80); Red Cell Distribution Width 14.6 % (11.0-16.0); White Blood Count 5.9 X10*3/uL (4.8-10.8)
== END 2023-01-26 12:25 | disposition home or self-care (01) ==
LOC: HO.LABR 12:24
PROVIDERS: PCP Internal Medicine; Visit Provider Clinical Nurse Specialist Psychiatric/Mental Health, Adult
DX: Z79.899 Other long term (current) drug therapy (principal)
CPT/HCPCS: 36415; 85025

== ENCOUNTER 2023-02-07 13:08 | Outpatient (REF) | payer MEDICARE, MEDICAID, SELFPAY ==
[2023-02-07 13:23] LABS: MANUAL DIFF FLAG NO
[2023-02-07 13:37] LABS: Basophils Percent Auto 0.6 % (0-2); Eosinophils Absolute Auto 0.1 X10*3/uL (0.0-0.4); Eosinophils Percent Auto 1.2 % (0-4); Hematocrit 41.1 % (42.0-52.0); Hemoglobin 13.2 g/dl (14.0-18.0); Imm Gran Abs Auto 0.02 X10*3/uL (0.00-0.03); Imm Gran Pct Auto 0.4 % (0.0-0.4); Lymphocytes Absolute Auto 1.7 X10*3/uL (1.2-4.9); Lymphocytes Percent Auto 33.9 % (20-40); Mean Corpuscular HGB Conc 32.1 g/dl (31.0-36.0); Mean Corpuscular Hemoglobin 28.1 pg (27.0-33.0); Mean Corpuscular Volume 87.4 fL (80.0-98.0); Mean Platelet Volume 12.3 fL (9.4-12.4); Monocytes Absolute Auto 0.5 X10*3/uL (0.1-1.2); Monocytes Percent Auto 9.5 % (2-11); Neutrophils Absolute Auto 2.8 x10*3/uL (2.0-8.3); Neutrophils Percent Auto 54.4 % (45-73); Platelet Count 229 X10*3/uL (160-400); Red Cell Distribution Width 14.3 % (11.0-16.0); White Blood Count 5.1 X10*3/uL (4.8-10.8)
== END 2023-02-07 13:09 | disposition home or self-care (01) ==
LOC: HO.LABR 13:08
PROVIDERS: PCP Internal Medicine; Visit Provider Clinical Nurse Specialist Psychiatric/Mental Health, Adult
DX: Z79.899 Other long term (current) drug therapy (principal)
CPT/HCPCS: 36415; 85025

== ENCOUNTER 2023-03-10 11:37 | Outpatient (REF) | payer MEDICARE, MEDICAID, SELFPAY ==
[2023-03-10 11:46] LABS: MANUAL DIFF FLAG NO
[2023-03-10 11:54] LABS: Basophils Percent Auto 0.7 % (0-2); Eosinophils Absolute Auto 0.2 X10*3/uL (0.0-0.4); Eosinophils Percent Auto 2.6 % (0-4); Hematocrit 39.6 % (42.0-52.0); Hemoglobin 12.6 g/dl (14.0-18.0); Imm Gran Abs Auto 0.02 X10*3/uL (0.00-0.03); Imm Gran Pct Auto 0.3 % (0.0-0.4); Lymphocytes Absolute Auto 2.8 X10*3/uL (1.2-4.9); Lymphocytes Percent Auto 45.4 % (20-40); Mean Corpuscular HGB Conc 31.8 g/dl (31.0-36.0); Mean Platelet Volume 12.1 fL (9.4-12.4); Monocytes Absolute Auto 0.4 X10*3/uL (0.1-1.2); Monocytes Percent Auto 6.5 % (2-11); Neutrophils Absolute Auto 2.7 x10*3/uL (2.0-8.3); Neutrophils Percent Auto 44.5 % (45-73); Platelet Count 193 X10*3/uL (160-400); Red Cell Distribution Width 14.1 % (11.0-16.0); White Blood Count 6.1 X10*3/uL (4.8-10.8)
== END 2023-03-10 11:38 | disposition home or self-care (01) ==
LOC: HO.LABR 11:37
PROVIDERS: PCP Internal Medicine; Visit Provider Clinical Nurse Specialist Psychiatric/Mental Health, Adult
DX: Z79.899 Other long term (current) drug therapy (principal)
CPT/HCPCS: 36415; 85025

== ENCOUNTER → 2023-04-06 10:58 | Outpatient (BNVA) | payer MEDICARE, MEDICAID, SELFPAY | PROVIDERS: PCP Internal Medicine; Visit Provider Internal Medicine Endocrinology, Diabetes & Metabolism | DX: E11.65 Type 2 diabetes mellitus with hyperglycemia (principal); Z79.4 Long term (current) use of insulin | CPT/HCPCS: 82947; 99212 ==

== ENCOUNTER 2023-04-11 13:47 | Outpatient (REF) | payer MEDICARE, MEDICAID, SELFPAY ==
[2023-04-11 13:56] LABS: MANUAL DIFF FLAG NO
[2023-04-11 14:27] LABS: Basophils Percent Auto 0.6 % (0-2); Eosinophils Absolute Auto 0.1 X10*3/uL (0.0-0.4); Eosinophils Percent Auto 0.7 % (0-4); Hemoglobin 13.1 g/dl (14.0-18.0); Imm Gran Abs Auto 0.02 X10*3/uL (0.00-0.03); Imm Gran Pct Auto 0.3 % (0.0-0.4); Lymphocytes Absolute Auto 2.2 X10*3/uL (1.2-4.9); Lymphocytes Percent Auto 32.5 % (20-40); Mean Corpuscular HGB Conc 31.2 g/dl (31.0-36.0); Mean Corpuscular Hemoglobin 27.6 pg (27.0-33.0); Mean Corpuscular Volume 88.6 fL (80.0-98.0); Mean Platelet Volume 12.5 fL (9.4-12.4); Monocytes Absolute Auto 0.7 X10*3/uL (0.1-1.2); Monocytes Percent Auto 10.4 % (2-11); Neutrophils Absolute Auto 3.8 x10*3/uL (2.0-8.3); Neutrophils Percent Auto 55.5 % (45-73); Platelet Count 214 X10*3/uL (160-400); Red Blood Count 4.74 X10*6/uL (4.60-5.80); Red Cell Distribution Width 14.6 % (11.0-16.0); White Blood Count 6.9 X10*3/uL (4.8-10.8)
== END 2023-04-11 13:48 | disposition home or self-care (01) ==
LOC: HO.LABR 13:47
PROVIDERS: PCP Internal Medicine; Visit Provider Clinical Nurse Specialist Psychiatric/Mental Health, Adult
DX: Z79.899 Other long term (current) drug therapy (principal)
CPT/HCPCS: 36415; 85025

== ENCOUNTER 2023-05-04 10:14 | Outpatient (REF) | payer MEDICARE, MEDICAID, SELFPAY ==
[2023-05-04 10:27] LABS: MANUAL DIFF FLAG NO
[2023-05-04 10:32] LABS: Basophils Absolute Auto 0.1 X10*3/uL (0.0-0.2); Eosinophils Absolute Auto 0.1 X10*3/uL (0.0-0.4); Eosinophils Percent Auto 1.3 % (0-4); Hematocrit 40.9 % (42.0-52.0); Hemoglobin 13.2 g/dl (14.0-18.0); Imm Gran Abs Auto 0.01 X10*3/uL (0.00-0.03); Imm Gran Pct Auto 0.2 % (0.0-0.4); Lymphocytes Absolute Auto 2.9 X10*3/uL (1.2-4.9); Lymphocytes Percent Auto 46.9 % (20-40); Mean Corpuscular HGB Conc 32.3 g/dl (31.0-36.0); Mean Corpuscular Hemoglobin 28.5 pg (27.0-33.0); Mean Corpuscular Volume 88.3 fL (80.0-98.0); Mean Platelet Volume 11.6 fL (9.4-12.4); Monocytes Absolute Auto 0.6 X10*3/uL (0.1-1.2); Monocytes Percent Auto 9.1 % (2-11); Neutrophils Absolute Auto 2.6 x10*3/uL (2.0-8.3); Neutrophils Percent Auto 41.5 % (45-73); Platelet Count 275 X10*3/uL (160-400); Red Blood Count 4.63 X10*6/uL (4.60-5.80); Red Cell Distribution Width 14.4 % (11.0-16.0); White Blood Count 6.1 X10*3/uL (4.8-10.8)
== END 2023-05-04 10:15 | disposition home or self-care (01) ==
LOC: HO.LABR 10:14
PROVIDERS: Visit Provider Clinical Nurse Specialist Psychiatric/Mental Health, Adult
DX: Z79.899 Other long term (current) drug therapy (principal)
CPT/HCPCS: 36415; 85025

== ENCOUNTER 2023-05-20 09:11 | Outpatient (AMB) | payer MEDICARE, MEDICAID, SELFPAY ==
--- NOTE | 2023-05-20 09:41 | MHC.AMDMED ---
Intake Intake Visit Reasons: DM Silk Spotter Required: No Accompanied by: Other Relationship Allergies No Known Allergies Allergy (Unknown, Verified 05/05/23 15:10) NOT APPLICABLE HPI Comprehensive Diabetes Asmnt Most Recent Diabetes Results: No Data to Display [facility] Medical History (Updated 09/27/22 @ 12:03 by Karol Coronel MD) Adjustment disorder Asthma Blind left eye Diabetic nephropathy Dyslipidemia GERD (gastroesophageal reflux disease) Hypertension Injury to scrotum [facility] (current) use of insulin Obesity (BMI 30-39.9) RUQ abdominal pain Schizophrenia Type 2 diabetes mellitus with hyperglycemia Vitamin D deficiency Surgical History History of appendectomy History of removal of cyst Family History Father No problems noted. Mother No problems noted. Social History Housing: Assisted Living Facility Alcohol intake: never Patient Tobacco Use Status: Never used Tobacco e-Cigarette/Vaping Use: Never Used Second Hand Smoke Exposure: No service: No Current occupational status: disabled Cognitive needs: Yes Hearing needs: No Vision needs: No Assessment & Plan Assessment & Plan (1) Type 2 diabetes mellitus with hyperglycemia: Comment: Dr. David Zhao Located at [facility] Code(s): E11.65 - Type 2 diabetes mellitus with hyperglycemia Qualifiers: Diabetes mellitus environmental management specialist insulin use: with environmental management specialist use Qualified Code(s): E11.65 - Type 2 diabetes mellitus with hyperglycemia; Z79.4 - [facility] (current) use of insulin Plan: CGM Info Instructed Pt on what CGM can and can't do CGM Can: Give Pt minute by minute reading of glucose levels Displays glucose trend arrows that represents the direction glucose levels are fluctuating Give insight on decisions about how to dose insulin CGM cannot: Improve glucose control on its own Completely eliminate the need for all finger sticks Make dosing decision for you CGM is the reading of glucose in the interstitial fluid not actual blood glucose, finger sticks are still necessary when Pt's symptom?s do not match sensor reading and if sensors prompts Pt to do a fingerstick At this time patient it is not appropriate for personal CGM Patient's medications on glucose tests are all administered by VNA that comes in twice a day Patient's meals are prepared by SPORTS MEDICINE TRAINER, patient reports only eats 1 meal a day Discussed with patient the importance of having a meal or snack after injection of NovoLog mix insulin. Patient denies symptoms of hypoglycemia, patient stated that when his glucose is low he feels dizzy and has visual disturbance Patient will return at the beginning of August for professional Berry sensor 2 weeks before appointment with Dr. Michael Patient Instructions: Have meal or snack after NovoLog 70/30, to reduce risk hypoglycemic event Follow-up with school vocational educator on 08/09/2023 for professional sensor insertion Coding Level of Care Code Est Pt Level 1 (14872) Diagnoses Type 2 diabetes mellitus with hyperglycemia E11.65; Z79.4 Diabetes mellitus custodial insulin use: with environmental management specialist use
== END 2023-05-20 09:44 | disposition home or self-care (01) ==
PROVIDERS: PCP Internal Medicine; Visit Provider Registered Nurse Diabetes Educator
DX: E11.65 Type 2 diabetes mellitus with hyperglycemia (principal); Z79.4 Long term (current) use of insulin

== ENCOUNTER → 2023-05-20 09:11 | Outpatient (BNVA) | payer MEDICARE, MEDICAID, SELFPAY | PROVIDERS: PCP Internal Medicine; Visit Provider Registered Nurse Diabetes Educator | DX: E11.65 Type 2 diabetes mellitus with hyperglycemia (principal); Z79.4 Long term (current) use of insulin | CPT/HCPCS: 99211 ==

== ENCOUNTER 2023-05-31 13:02 | Outpatient (REF) | payer MEDICARE, MEDICAID, SELFPAY ==
[2023-05-31 13:19] LABS: MANUAL DIFF FLAG NO
[2023-05-31 14:01] LABS: Basophils Absolute Auto 0.1 X10*3/uL (0.0-0.2); Basophils Percent Auto 0.7 % (0-2); Eosinophils Absolute Auto 0.1 X10*3/uL (0.0-0.4); Eosinophils Percent Auto 1.7 % (0-4); Hemoglobin 12.7 g/dl (14.0-18.0); Imm Gran Abs Auto 0.06 X10*3/uL (0.00-0.03); Imm Gran Pct Auto 0.7 % (0.0-0.4); Lymphocytes Absolute Auto 2.6 X10*3/uL (1.2-4.9); Lymphocytes Percent Auto 32.4 % (20-40); Mean Corpuscular HGB Conc 31.8 g/dl (31.0-36.0); Mean Corpuscular Volume 88.3 fL (80.0-98.0); Mean Platelet Volume 12.1 fL (9.4-12.4); Monocytes Absolute Auto 0.7 X10*3/uL (0.1-1.2); Monocytes Percent Auto 8.3 % (2-11); Neutrophils Absolute Auto 4.5 x10*3/uL (2.0-8.3); Neutrophils Percent Auto 56.2 % (45-73); Platelet Count 275 X10*3/uL (160-400); Red Blood Count 4.53 X10*6/uL (4.60-5.80); Red Cell Distribution Width 13.7 % (11.0-16.0); White Blood Count 8.1 X10*3/uL (4.8-10.8)
== END 2023-05-31 13:03 | disposition home or self-care (01) ==
LOC: HO.LABR 13:02
PROVIDERS: PCP Internal Medicine; Visit Provider Clinical Nurse Specialist Psychiatric/Mental Health, Adult
DX: Z79.899 Other long term (current) drug therapy (principal)
CPT/HCPCS: 36415; 85025

== ENCOUNTER 2023-06-15 14:45 | Outpatient (AMB) | payer MEDICARE, MEDICAID, SELFPAY ==
--- NOTE | 2023-06-15 15:06 | MHC.AMDMED ---
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 Mother No problems noted. Social History Housing: Assisted Living Facility Alcohol intake: never Patient Tobacco Use Status: Never used Tobacco e-Cigarette/Vaping Use: Never Used Second Hand Smoke Exposure: No service: No Current occupational status: disabled Cognitive needs: Yes Hearing needs: No Vision needs: No Assessment & Plan Assessment & Plan (1) Type 2 diabetes mellitus with hyperglycemia: Comment: Dr. David Zhao Located at [facility] Code(s): E11.65 - Type 2 diabetes mellitus with hyperglycemia Qualifiers: Diabetes mellitus intermediate insulin use: with intermediate use Qualified Code(s): E11.65 - Type 2 diabetes mellitus with hyperglycemia; Z79.4 - snf (current) use of insulin Coding Level of Care Code Procedure Only Diagnoses Type 2 diabetes mellitus with hyperglycemia E11.65; Z79.4 Diabetes mellitus intermediate insulin use: with vermin exterminator use CPT Codes Details - CPT: 78669 - Glucose Monitoring, continuous ([id number]) Office Procedures Glucose Monitoring Details Details: Professional CGM Patient has signed consent for professional CGM. Patient given the opportunity to ask questions, and expressed concerns. Sensor placed in the back of patient's R arm Lot # [id number] Expiration Date:11/06/23 The purpose of the Professional Continuous Glucose Monitor (CGM) is to assess your blood sugar patterns in response to what you eat, the diabetes medications you take and physical activity .? This is why we have you keep a diary of what you eat and when, what time you take your? diabetes medications and what activity you do and when, while you are wearing the continuous glucose monitor . ? The continuous glucose monitoring (CGM) device will monitor your blood sugar frequently throughout the day and night. ? Please be sure to record everything that you eat, including portion sizes, all activity you do and when you take your diabetes medication . ? It is okay for you to shower and go about your normal daily activities while wearing the device ? . ? It is best to wear the device when you are having a normal week and best to avoid if you will be on vacation or undergoing medical testing or procedures ? . ? At your next scheduled appointment your continuous glucose monitor will be removed, and the data will be evaluated by your health care provider . ? We will contact you about those results and provide you with next steps ? If the device falls off before your next appointment is scheduled, simply return the device and your diary to the clinic . ? If it has been on for greater than three days there might be enough data to complete the test. If it is less than three days, you may need to have another device placed. Portions of this note were created using voice recognition software, please excuse any words or phrases that may have been misinterpreted. Instrucciones para el paciente de CGM Pro El prop?sito del Monitor Continuo Profesional de Glucosa (MCG) es evaluar melissa patrones de az?car en la isabel en respuesta a lo que come, los medicamentos para la diabetes que brianne y la actividad f?darlene. Es por eso que le pedimos que mantenga un diario de lo que come y cu?ndo, a qu? hora brianne melissa medicamentos para la diabetes y qu? actividad realiza y cu?ndo, mientras usa el monitor continuo de glucosa. ? El dispositivo de monitorizaci?n continua de glucosa (MCG) controlar? palafox nivel de az?car en isabel con frecuencia nika el d?a y la noche. ? Aseg?rese de registrar todo lo que come, incluido el opal?o de las porciones, todas las actividades que realiza y cu?ndo brianne palafox medicamento para la diabetes . ? Est? caden que te duches y realices tus actividades diarias normales mientras usas el dispositivo ? . ? Es mejor usar el dispositivo cuando tiene jose luis semana normal y es mejor evitarlo si estar? de vacaciones o se someter? a pruebas o procedimientos m?dicos. ? . ? En palafox pr?xima jay programada, se le quitar? el monitor continuo de glucosa y palafox proveedor de atenci?n m?dica evaluar? los datos . ? Nos pondremos en contacto con usted acerca de esos resultados y le indicaremos los pr?ximos pasos ? Si el dispositivo se antes de programar palafox pr?xima jay, simplemente devuelva el dispositivo y palafox diario a la cl?chris. ? Si oates estado encendido nika m?s de jayce d?as, es posible que haya suficientes datos para completar la prueba. Si son menos de jayce d?as, es posible que deba colocar otro dispositivo. Algunas partes de esta nota se crearon con un software de reconocimiento de voz. Disculpe cualquier palabra o frase que pueda haberse malinterpretado. 74727 - Glucose Monitoring, continuous Procedure code (CPT) selection complete
== END 2023-06-15 15:07 | disposition home or self-care (01) ==
PROVIDERS: PCP Internal Medicine; Visit Provider Registered Nurse Diabetes Educator
DX: E11.65 Type 2 diabetes mellitus with hyperglycemia (principal); Z79.4 Long term (current) use of insulin

== ENCOUNTER → 2023-06-15 14:45 | Outpatient (BNVA) | payer MEDICARE, MEDICAID, SELFPAY | PROVIDERS: PCP Internal Medicine; Visit Provider Registered Nurse Diabetes Educator | DX: E11.65 Type 2 diabetes mellitus with hyperglycemia (principal); Z79.4 Long term (current) use of insulin | CPT/HCPCS: 95250 ==

== ENCOUNTER 2023-06-29 15:33 | Outpatient (AMB) | payer MEDICARE, MEDICAID, SELFPAY ==
--- NOTE | 2023-06-29 15:47 | A.OFFVIS_ITS ---
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 Mother No problems noted. Social History Housing: Assisted Living Facility Alcohol intake: never Patient Tobacco Use Status: Never used Tobacco e-Cigarette/Vaping Use: Never Used Second Hand Smoke Exposure: No service: No Current occupational status: disabled Cognitive needs: Yes Hearing needs: No Vision needs: No Assessment & Plan Assessment & Plan (1) Type 2 diabetes mellitus with hyperglycemia: Comment: Dr. David Zhao Located at [facility] Code(s): E11.65 - Type 2 diabetes mellitus with hyperglycemia Qualifiers: Diabetes mellitus supervisor intermediates insulin use: with supervisor intermediates use Qualified Code(s): E11.65 - Type 2 diabetes mellitus with hyperglycemia; Z79.4 - [facility] (current) use of insulin Plan: Personal Continuous Glucose Monitor: Patients CGM information reviewed Reviewed patient's sensor data: Hypoglycemia: ? 0% Hyperglycemia:? 47% Time in Range:? 45% Average glucose for the last 2 weeks 252? mg/dL Patient wore professional sensor for 11 days Patient returned food logs After of routine food logs patient eating high carbohydrate content meals, drinking fruit juice Patient's CGM information reviewed by Dr. Alec Michael increased morning dose of 70 30 from 44 units to [address] Michael increased Mounjaro from 2.5 mg weekly to 5 mg weekly Patient at visit alone, discussed with patient reducing amount of fruit juice drinking with meal. Also requested from patient correctional casework specialist's name and phone number. Patient reports correctional casework [phone] Left message for correctional casework specialist to call to discuss appointment notes Medications: New tirzepatide (Mounjaro) 5 mg (0.5 mL) subcut QWEEK 2 mL 4RF Changed From insulin asp prt-insulin aspart 100 unit/mL (70-30) (Novolog Mix 70- 30FlexPen U-100) 44 units before breakfast and 28 units before dinner subcut 2 times a day; 30 days 30 mL 3RF To insulin asp prt-insulin aspart 100 unit/mL (70-30) (Novolog Mix 70-30FlexPen U-100) 50 units before breakfast and 28 units before dinner subcutaneously 2 times a day; 30 days 30 mL 3RF Discontinued tirzepatide (Mounjaro) Discontinued Reason: Doctor's Order 2.5 mg (0.5 mL) subcut QWEEK 4 weeks 2 mL 0RF Coding Level of Care Code Est Pt Level 1 (16505) Diagnoses Type 2 diabetes mellitus with hyperglycemia E11.65; Z79.4 Diabetes mellitus [facility] insulin use: with supervisor intermediates use
== END 2023-06-29 16:17 | disposition home or self-care (01) ==
PROVIDERS: PCP Internal Medicine; Visit Provider Registered Nurse Diabetes Educator
DX: E11.65 Type 2 diabetes mellitus with hyperglycemia (principal); Z79.4 Long term (current) use of insulin

== ENCOUNTER → 2023-06-29 15:33 | Outpatient (BNVA) | payer MEDICARE, MEDICAID, SELFPAY | PROVIDERS: PCP Internal Medicine; Visit Provider Registered Nurse Diabetes Educator | DX: E11.65 Type 2 diabetes mellitus with hyperglycemia (principal); Z79.4 Long term (current) use of insulin | CPT/HCPCS: 99211 ==

== ENCOUNTER 2023-07-04 14:15 | Outpatient (REF) | payer MEDICARE, MEDICAID, SELFPAY ==
[2023-07-04 14:24] LABS: MANUAL DIFF FLAG NO
[2023-07-04 15:36] LABS: Basophils Absolute Auto 0.1 X10*3/uL (0.0-0.2); Basophils Percent Auto 0.7 % (0-2); Eosinophils Absolute Auto 0.1 X10*3/uL (0.0-0.4); Eosinophils Percent Auto 1.4 % (0-4); Hematocrit 40.3 % (42.0-52.0); Hemoglobin 12.7 g/dl (14.0-18.0); Imm Gran Abs Auto 0.02 X10*3/uL (0.00-0.03); Imm Gran Pct Auto 0.3 % (0.0-0.4); Lymphocytes Percent Auto 42.8 % (20-40); Mean Corpuscular HGB Conc 31.5 g/dl (31.0-36.0); Mean Corpuscular Hemoglobin 27.7 pg (27.0-33.0); Mean Corpuscular Volume 87.8 fL (80.0-98.0); Mean Platelet Volume 12.3 fL (9.4-12.4); Monocytes Absolute Auto 0.5 X10*3/uL (0.1-1.2); Monocytes Percent Auto 7.6 % (2-11); Neutrophils Absolute Auto 3.4 x10*3/uL (2.0-8.3); Neutrophils Percent Auto 47.2 % (45-73); Platelet Count 236 X10*3/uL (160-400); Red Blood Count 4.59 X10*6/uL (4.60-5.80); Red Cell Distribution Width 14.2 % (11.0-16.0); White Blood Count 7.1 X10*3/uL (4.8-10.8)
[2023-07-04 16:00] LABS: Uric Acid 5.5 mg/dL (3.4-7.0)
== END 2023-07-04 14:16 | disposition home or self-care (01) ==
LOC: HO.LABR 14:15
PROVIDERS: PCP Internal Medicine; Visit Provider Clinical Nurse Specialist Psychiatric/Mental Health, Adult
DX: Z79.899 Other long term (current) drug therapy (principal)
CPT/HCPCS: 36415; 84550; 85025

== ENCOUNTER 2023-07-28 14:34 | Outpatient (REF) | payer MEDICARE, MEDICAID, SELFPAY ==
[2023-07-28 15:00] LABS: MANUAL DIFF FLAG NO
[2023-07-28 15:15] LABS: Basophils Absolute Auto 0.1 X10*3/uL (0.0-0.2); Basophils Percent Auto 0.7 % (0-2); Basophils Percent Auto 0.9 % (0-2); Eosinophils Absolute Auto 0.1 X10*3/uL (0.0-0.4); Eosinophils Absolute Auto 0.2 X10*3/uL (0.0-0.4); Eosinophils Percent Auto 2.1 % (0-4); Eosinophils Percent Auto 2.2 % (0-4); Hematocrit 36.1 % (42.0-52.0); Hematocrit 36.5 % (42.0-52.0); Hemoglobin 11.6 g/dl (14.0-18.0); Hemoglobin 11.8 g/dl (14.0-18.0); Imm Gran Abs Auto 0.02 X10*3/uL (0.00-0.03); Imm Gran Abs Auto 0.03 X10*3/uL (0.00-0.03); Imm Gran Pct Auto 0.3 % (0.0-0.4); Imm Gran Pct Auto 0.4 % (0.0-0.4); Lymphocytes Absolute Auto 2.6 X10*3/uL (1.2-4.9); Lymphocytes Absolute Auto 2.8 X10*3/uL (1.2-4.9); Lymphocytes Percent Auto 39.5 % (20-40); Lymphocytes Percent Auto 40.4 % (20-40); Mean Corpuscular HGB Conc 32.1 g/dl (31.0-36.0); Mean Corpuscular HGB Conc 32.3 g/dl (31.0-36.0); Mean Corpuscular Hemoglobin 28.1 pg (27.0-33.0); Mean Corpuscular Hemoglobin 28.3 pg (27.0-33.0); Mean Corpuscular Volume 86.9 fL (80.0-98.0); Mean Platelet Volume 11.8 fL (9.4-12.4); Mean Platelet Volume 11.9 fL (9.4-12.4); Monocytes Absolute Auto 0.5 X10*3/uL (0.1-1.2); Monocytes Percent Auto 6.6 % (2-11); Neutrophils Absolute Auto 3.4 x10*3/uL (2.0-8.3); Neutrophils Percent Auto 49.7 % (45-73); Neutrophils Percent Auto 50.2 % (45-73); Platelet Count 210 X10*3/uL (160-400); Platelet Count 216 X10*3/uL (160-400); Red Cell Distribution Width 13.9 % (11.0-16.0); White Blood Count 6.7 X10*3/uL (4.8-10.8); White Blood Count 6.9 X10*3/uL (4.8-10.8)
[2023-07-28 15:22] LABS: Estimated Average Glucose 192 mg/dL; Hemoglobin A1c % 8.3 % (<6.0)
[2023-07-28 15:52] LABS: Alanine Aminotransferase 25 U/L (0-40); Albumin Level 4.1 g/dL (3.5-5.0); Alkaline Phosphatase 45 U/L (39-117); Anion Gap 11 (12-20); Aspartate Amino Transferase 17 U/L (5-37); Bilirubin Total 0.2 mg/dL (0.0-1.0); Blood Urea Nitrogen 16 mg/dL (9-16); Calcium 9.2 mg/dL (8.4-10.2); Carbon Dioxide 25 mmol/L (22-29); Chloride 105 mmol/L (96-108); Estimated Glomerular Filt Rate > 60; Glucose Random 290 mg/dL (60-115); Sodium 137 mmol/L (135-145); Total Protein 7.2 g/dL (6.5-8.0)
[2023-07-28 16:09] LABS: Free T4 (Free Thyroxine) 0.89 ng/dL (0.71-1.85); Thyroid Stimulating Hormone 1.18 uIU/mL (0.32-4.0)
[2023-07-28 16:22] LABS: Folate 11.1 ng/mL (> or = 4.0); Prostate Specific Antigen Scr 1.03 ng/mL (<0.05-4.0); Vitamin B12 386 pg/mL (200-900)
[2023-07-28 16:35] LABS: Creatinine Urine 28.48 mg/dL; Microalbumin Urine < 5.0 mg/L
== END 2023-07-28 14:35 | disposition home or self-care (01) ==
LOC: HO.LABR 14:34
PROVIDERS: PCP Internal Medicine; Visit Provider Clinical Nurse Specialist Psychiatric/Mental Health, Adult
DX: E11.65 Type 2 diabetes mellitus with hyperglycemia (principal); Z79.4 Long term (current) use of insulin; Z79.899 Other long term (current) drug therapy; Z12.5 Encounter for screening for malignant neoplasm of prostate
CPT/HCPCS: 36415; 80053; 82570; 82607; 82746; 83036; 84153; 84439; 84443; 85025

== ENCOUNTER 2023-08-16 13:06 | Outpatient (AMB) | payer MEDICARE, MEDICAID, SELFPAY ==
[2023-08-16 13:14] VITALS: BP 120/68; PULSE 96; BMI 35.8
--- NOTE | 2023-08-16 13:14 | MHC.OFFVIS ---
Intake Vital Signs 08/16/23 13:14 Height 5 ft 11 in Weight 257 lb 0.944 oz BMI 35.8 BP 120/68 Blood Pressure Location Lt brachial Position Sitting Pulse 96 Pulse Source Pulse Oximeter Intake Visit Reasons: dm, appt confirmed Intake Note: Patient present ltoday to follow up on Type 2 Diabetes Mellitus. Last Diabetic Eye exam: 07/14/23 Eye and Lasik Last Podiatry Visit: 07/21/23 Employee Relation Manager Association Random Glucose: 189 mg/dl HgA1C: 8.3% 07/28/23 Reducing System Operator Required: No Accompanied by: Other Relationship Allergies No Known Allergies Allergy (Unknown, Verified 08/16/23 13:27) NOT APPLICABLE HPI HPI Comments History of Present Illness Details Patient is 53-year-old male with DM type 2 diagnosed in 2014 who presents for management of diabetes. P Given his nursing services in her only twice a day he was switch to NovoLog mix 70/30 and patient was advised the importance of eating 3 times a day. Presents with CHD worker. 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 Micro and macrovascular complications: Diabetes medications: Humalog Mix 70/30 50 units before breakfast and 28 units before dinner. Mounjaro 5 mg Qwkly metformin 1000 mg twice a day, Jardiance 25 mg daily Glucometer download shows she is checking his point cares twice a day. Average glucose is 273 with range of 169-450. 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 Mother No problems noted. Social History Housing: Assisted Living Facility Alcohol intake: never Patient Tobacco Use Status: Never used Tobacco e-Cigarette/Vaping Use: Never Used Second Hand Smoke Exposure: No service: No Current occupational status: disabled Cognitive needs: Yes Hearing needs: No Vision needs: No Physical Exam Vital Signs: Last Vital Signs Pulse 96 08/16/23 13:14 BP 120/68 08/16/23 13:14 BMI result Body Mass Index 35.8 Absence of Cushingoid features. Absence of acromegalic features. Neck exam reveals nl size thyroid about 15 gms. No thyroid nodules palpable. No carotid bruits present. Lungs CTA. Heart S1 S2, Reg R/R. No M/R/ G. Skin exam reveals absence of vitiligo or acanthosis nigricans. Abdominal exam reveals Soft NT/ND with NA BS. No organomegaly present. Neck Other: . Extrem Other: Visual exam of foot performed. No ulcerations or open lesions. No onchomycosis, no callouses.Pulses 2 + distally Sensation intact to monofilament exam. Vibratory sensation sensed is intact with 128 Hz tuning fork Assessment & Plan Assessment & Plan (1) Type 2 diabetes mellitus with hyperglycemia: Comment: Dr. David Zhao Located at [facility] Code(s): E11.65 - Type 2 diabetes mellitus with hyperglycemia Qualifiers: Diabetes mellitus nursing home insulin use: with intermodal truck driver use Qualified Code(s): E11.65 - Type 2 diabetes mellitus with hyperglycemia; Z79.4 - buttermaker (current) use of insulin Plan: This 53-year-old white male with a history of type 2 diabetes being treated with metformin, Trulicity, Jardiance and premixed insulin with poor glycemic control and no known microvascular or macrovascular complication Plan is to increase the 70 /30 insulin to 60 units in the morning and 40 units before dinner. Will also increase Mounjaro to 7.5 mg I will schedule him for an appointment with the adaptive physical educator. His glycemic control is limited by psychosocial circumstances and his inability to take more than 2 injections today of premixed insulin. He would benefit from the use of a continuous glucose sensor but is not able to handle it in the current environment in which he lives Coding Level of Care Code Est Pt Level 4 (89580) Diagnoses Type 2 diabetes mellitus with hyperglycemia, with long-term current use of insulin E11.65; Z79.4 Diabetes mellitus intermodal truck driver insulin use: with nursing home use
== END 2023-08-16 13:45 | disposition home or self-care (01) ==
PROVIDERS: PCP Internal Medicine; Visit Provider Internal Medicine Endocrinology, Diabetes & Metabolism
DX: E11.65 Type 2 diabetes mellitus with hyperglycemia (principal); Z79.4 Long term (current) use of insulin
CPT/HCPCS: 99214

== ENCOUNTER → 2023-08-16 13:06 | Outpatient (BNVA) | payer MEDICARE, MEDICAID, SELFPAY | PROVIDERS: Visit Provider Internal Medicine Endocrinology, Diabetes & Metabolism | DX: E11.65 Type 2 diabetes mellitus with hyperglycemia (principal); Z79.4 Long term (current) use of insulin | CPT/HCPCS: 82947; 99212 ==

== ENCOUNTER 2023-08-25 11:32 | Outpatient (AMB) | payer MEDICARE, MEDICAID, SELFPAY ==
[2023-08-25 11:48] VITALS: BP 114/70; PULSE 67; O2SAT 97; BMI 36.0
--- NOTE | 2023-08-25 11:48 | A.OFFPC_ITS ---
Vital Signs 08/25/23 11:48 Height 5 ft 11 in Weight 258 lb BMI 36.0 BP 114/70 Blood Pressure Location Lt brachial Position Sitting Pulse 67 Pulse Source Pulse Oximeter Pulse Oximetry (%) 97 Oxygen Delivery Method Room Air Intake Visit Reasons: 3mth f/u Allergies No Known Allergies Allergy (Unknown, Verified 08/25/23 11:49) NOT APPLICABLE Tobacco use date assessed: 02/03/23 Dental Screening Dental Screen Date: 08/25/23 Did you have a dental visit in the last 12 months?: Yes Did you have a dental problem in the last 6 months where you did not have access to dental care?: No Was dental information given to patient?: Patient has dentist HPI 3mth f/u HPI Details 53-year-old obese male with diabetes imani litus hypertension GERD hypercholesterolemia and schizophrenia last seen in April 2023. Patient is here for follow-up. Patient follows up with endocrinology August 2023 insulin does adjustment [facility] Medical History (Updated 09/27/22 @ 12:03 by Karol Coronel MD) Adjustment disorder RUQ abdominal pain Injury to scrotum Dyslipidemia correction (current) use of insulin Blind left eye Obesity (BMI 30-39.9) Diabetic nephropathy GERD (gastroesophageal reflux disease) Vitamin D deficiency Schizophrenia Asthma Type 2 diabetes mellitus with hyperglycemia Hypertension Surgical History History of removal of cyst History of appendectomy Family History Father No problems noted. Mother No problems noted. Social History Housing: Assisted Living Facility Alcohol intake: never Patient Tobacco Use Status: Never used Tobacco e-Cigarette/Vaping Use: Never Used Second Hand Smoke Exposure: No service: No Current occupational status: disabled Cognitive needs: Yes Hearing needs: No Vision needs: No Questionnaire PHQ-9 Over the last 2 weeks, how often have you been bothered by any of the following problems? 1. Little interest or pleasure in doing things: not at all 2. Feeling down, depressed, or hopeless: not at all 3. Trouble falling or staying asleep, or sleeping too much: not at all 4. Feeling tired or having little energy: not at all 5. Poor appetite or overeating: not at all 6. Feeling bad about yourself - or that you are a failure or have let yourself or your family down: not at all 7. Trouble concentrating on things, such as reading the newspaper or watching television: not at all 8. Moving or speaking so slowly that other people could have noticed. Or the opposite - being so fidgety or restless that you have been moving around a lot more than usual: not at all 9. Thoughts that you would be better off or of hurting yourself in some way: not at all Total score: 0 Depression Screening Interpretation: Negative Depression Screening Done: Yes Source: Developed by Drs. Ollie Gray, Vanessa Mclean, Michael Crook and colleagues, with an educational cecilia from [employer]. Thrive Questionnaire Date Thrive assessed: 02/03/23 AUDIT C Alcohol Use Questionnaire (AUDIT-C) 1. How often do you have a drink containing alcohol?: Never 3. How often do you have six or more drinks on one occasion?: Never Total Score: 0 Score Reviewed/Action Taken: No JC-7 AMB Questionnaire JC-7 Date JC - 7 assessed: 02/03/23 Source: Developed by Drs. Ollie Gray, Vanessa Mclean, Michael Crook and colleagues, with an educational cecilia from [employer]. Physical exam (Primary Care) Vital Signs: Last Vital Signs Pulse 67 08/25/23 11:48 BP 114/70 08/25/23 11:48 Pulse Ox 97 08/25/23 11:48 Oxygen Delivery Method Room Air 08/25/23 11:48 BMI result Body Mass Index 36.0 Tobacco/Smoking Status: Tobacco use Status Tobacco use date assessed 02/03/23 08/25/23 11:56 Patient Tobacco Use Status Never used Tobacco 08/25/23 11:56 e-Cigarette/Vaping Use Never Used 08/25/23 11:56 PHQ-9: PHQ-9 Score PHQ-9: Total score 0 08/25/23 11:56 Depression Screening Interpretation: Negative Thrive Assessment: Date of Thrive Assessment Date Thrive assessed 02/03/23 08/25/23 11:56 Const General: alert; No acute distress Eyes Conjunctivae: conjunctivae normal Resp Auscultation: clear to auscultation bilaterally Cardio Rate: regular rate Rhythm: regular rhythm GI Inspection: Yes normal to inspection Extrem General: Yes normal to inspection and No edema Office Procedures Flu Questionnaire Does the patient have a severe egg allergy?: No Does the patient have severe life threatening allergies?: No Does the patient have a fever or illness today?: No Has the patient ever had Guillain-[place] Syndrome?: No Has the patient ever had any past reaction to a flu shot?: No Immunizations flu vacc [id number] 6mos up(PF) 60 mcg(15 mcgx4)/0.5 mL IM syringe Performing Provider: Karol Coronel MD [facility] Administered by: Rosetta Barrera CMA on 08/25/23 11:56 Dose Route Admin Location Dispensed Lot Number Expiration Date NDC Commercial [employer] 0.5 mL IM Left Deltoid 0.5 mL [id number] 05/06/24 81241-355-28 Collective VIS Given Date VIS Provided VIS Publication Date 08/25/23 Single Vaccine 21 Eligibility Eligibility Date Funding Source Not [facility] Eligible 08/25/23 Private Assessment and Plan Assessment & Plan (1) Type 2 diabetes mellitus with hyperglycemia: Comment: Dr. David Zhao Located at [facility] and [facility] Code(s): E11.65 - Type 2 diabetes mellitus with hyperglycemia Qualifiers: Diabetes mellitus buttermaker continuous churn insulin use: with buttermaker continuous churn use Qualified Code(s): E11.65 - Type 2 diabetes mellitus with hyperglycemia; Z79.4 - correction (current) use of insulin Plan: Decrease the amount of carbohydrate intake, pasta, bread, rice and potatoes are all sugar and that is aside from all the sweet stuff, remember that fruits are good but they are Sweet also. Hemoglobin A1c goal of less than 6.5. Patient follows up with endocrinology limited on Jardiance 25 mg once a day NovoLog mix 70 30 twice a day metformin a 1000 twice a day and patient has been placed on Mounjaro. (2) Hypertension: Code(s): I10 - Essential (primary) hypertension Qualifiers: Hypertension type: essential hypertension Qualified Code(s): I10 - Essential (primary) hypertension Plan: Continue with blood pressure medication. Decrease salt intake and exercise patient is on lisinopril 5 mg once a day (3) Obesity (BMI 30-39.9): Code(s): E66.9 - Obesity, unspecified Plan: Diet and exercise (4) GERD (gastroesophageal reflux disease): Code(s): K21.9 - Gastro-esophageal reflux disease without esophagitis Qualifiers: Esophagitis presence: without esophagitis Qualified Code(s): K21.9 - Gastro-esophageal reflux disease without esophagitis Plan: Avoid the foods that causes that usually spicy foods, tomato products, juices, coffee, soda and foods that your sensitive to. After eating do not lie down, allow 3-4 hours before in lie down. And keep the head of bed above 30 degrees to avoid the acid from going up. (5) Dyslipidemia: Code(s): E78.5 - Hyperlipidemia, unspecified Plan: Avoid fried foods, chicken skin, eggs, butter margarine, pastries and meat. Be it pork or beef they have a lot of cholesterol LDL goal of less than 100 and triglyceride of less than 150 patient on atorvastatin 10 mg once a day and fenofibrate (6) Schizophrenia: Comment: Tra Diego Code(s): F20.9 - Schizophrenia, unspecified Qualifiers: Schizophrenia type: disorganized schizophrenia Qualified Code(s): F20.1 - Disorganized schizophrenia Plan: Continue to follow-up psychiatry counseling (7) Colon cancer screening: Code(s): Z12.11 - Encounter for screening for malignant neoplasm of colon Orders: Orders Influenza [id number] Immunization Today Z23 - Encounter for immunization Free T4 (Free Thyroxine) Today E11.65 - Type 2 diabetes mellitus with hyperglycemia, Z79.4 - correction (current) use of insulin Thyroid Stimulating Hormone Today E11.65 - Type 2 diabetes mellitus with hyperglycemia, Z79.4 - correction (current) use of insulin Lipid Panel Today E11.65 - Type 2 diabetes mellitus with hyperglycemia, E78.00 - Pure hypercholesterolemia, unspecified, Z79.4 - correction (current) use of insulin Prostate Specific Antigen Scr Today E11.65 - Type 2 diabetes mellitus with hyperglycemia, Z79.4 - terminal gauger supervisor (current) use of insulin Creatinine Urine Today E11.65 - Type 2 diabetes mellitus with hyperglycemia, Z79.4 - terminal gauger supervisor (current) use of insulin Microalbumin, Random (w Creat) Today E11.65 - Type 2 diabetes mellitus with hyperglycemia, Z79.4 - correction (current) use of insulin Ferritin Today E11.65 - Type 2 diabetes mellitus with hyperglycemia, Z79.4 - correction (current) use of insulin Reticulocyte Count Today E11.65 - Type 2 diabetes mellitus with hyperglycemia, Z79.4 - correction (current) use of insulin IRON PROFILE Today E11.65 - Type 2 diabetes mellitus with hyperglycemia, Z79.4 - terminal gauger supervisor (current) use of insulin Complete Blood Count Auto Diff Today E11.65 - Type 2 diabetes mellitus with hyperglycemia, Z79.4 - terminal gauger supervisor (current) use of insulin Comprehensive Met. Panel Today E11.65 - Type 2 diabetes mellitus with hyperglycemia, Z79.4 - correction (current) use of insulin Vitamin B12 and Folate Today E11.65 - Type 2 diabetes mellitus with hyperglycemia, Z79.4 - terminal gauger supervisor (current) use of insulin Referrals Cologuard Test Z12.11 - Encounter for screening for malignant neoplasm of colon Coding Level of Care Code Est Pt Level 4 (49737) Diagnoses Type 2 diabetes mellitus with hyperglycemia, with long-term current use of insulin E11.65; Z79.4 Diabetes mellitus detention insulin use: with buttermaker continuous churn use Essential hypertension I10 Hypertension type: essential hypertension Obesity (BMI 30-39.9) E66.9 Gastroesophageal reflux disease without esophagitis K21.9 Esophagitis presence: without esophagitis Dyslipidemia E78.5 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
== END 2023-08-25 12:40 | disposition home or self-care (01) ==
PROVIDERS: PCP Internal Medicine; Visit Provider Internal Medicine
DX: E11.65 Type 2 diabetes mellitus with hyperglycemia (principal); Z79.4 Long term (current) use of insulin; F20.1 Disorganized schizophrenia; I10 Essential (primary) hypertension; Z23 Encounter for immunization; E66.9 Obesity, unspecified; K21.9 Gastro-esophageal reflux disease without esophagitis; E78.5 Hyperlipidemia, unspecified
CPT/HCPCS: 90471; 90686; 99214

== ENCOUNTER 2023-09-02 09:05 | Outpatient (REF) | payer MEDICARE, MEDICAID, SELFPAY ==
[2023-09-02 09:21] LABS: MANUAL DIFF FLAG NO
[2023-09-02 09:49] LABS: Basophils Percent Auto 0.6 % (0-2); Eosinophils Absolute Auto 0.1 X10*3/uL (0.0-0.4); Eosinophils Percent Auto 1.8 % (0-4); Hematocrit 39.7 % (42.0-52.0); Hemoglobin 12.5 g/dl (14.0-18.0); Imm Gran Abs Auto 0.06 X10*3/uL (0.00-0.03); Imm Gran Pct Auto 0.9 % (0.0-0.4); Lymphocytes Absolute Auto 2.4 X10*3/uL (1.2-4.9); Lymphocytes Percent Auto 35.6 % (20-40); Mean Corpuscular HGB Conc 31.5 g/dl (31.0-36.0); Mean Corpuscular Hemoglobin 26.9 pg (27.0-33.0); Mean Corpuscular Volume 85.6 fL (80.0-98.0); Mean Platelet Volume 12.1 fL (9.4-12.4); Monocytes Absolute Auto 0.6 X10*3/uL (0.1-1.2); Monocytes Percent Auto 8.8 % (2-11); Neutrophils Absolute Auto 3.5 x10*3/uL (2.0-8.3); Neutrophils Percent Auto 52.3 % (45-73); Platelet Count 224 X10*3/uL (160-400); Red Blood Count 4.64 X10*6/uL (4.60-5.80); Red Cell Distribution Width 13.9 % (11.0-16.0); White Blood Count 6.7 X10*3/uL (4.8-10.8)
== END 2023-09-02 09:06 | disposition home or self-care (01) ==
LOC: HO.LABR 09:05
PROVIDERS: PCP Internal Medicine; Visit Provider Clinical Nurse Specialist Psychiatric/Mental Health, Adult
DX: Z79.899 Other long term (current) drug therapy (principal)
CPT/HCPCS: 36415; 85025

== ENCOUNTER 2023-09-27 11:00 | Outpatient (REF) | payer MEDICARE, MEDICAID, SELFPAY ==
[2023-09-27 11:11] LABS: MANUAL DIFF FLAG NO
[2023-09-27 11:34] LABS: White Blood Count 14.4 X10*3/uL (4.8-10.8)
[2023-09-27 11:35] LABS: Basophils Absolute Auto 0.1 X10*3/uL (0.0-0.2); Basophils Percent Auto 0.3 % (0-2); Eosinophils Percent Auto 0.1 % (0-4); Hematocrit 38.3 % (42.0-52.0); Imm Gran Abs Auto 0.06 X10*3/uL (0.00-0.03); Imm Gran Pct Auto 0.4 % (0.0-0.4); Lymphocytes Absolute Auto 2.1 X10*3/uL (1.2-4.9); Lymphocytes Percent Auto 14.9 % (20-40); Mean Corpuscular HGB Conc 31.3 g/dl (31.0-36.0); Mean Corpuscular Hemoglobin 27.1 pg (27.0-33.0); Mean Corpuscular Volume 86.7 fL (80.0-98.0); Mean Platelet Volume 12.2 fL (9.4-12.4); Monocytes Absolute Auto 0.9 X10*3/uL (0.1-1.2); Monocytes Percent Auto 6.4 % (2-11); Neutrophils Absolute Auto 11.2 x10*3/uL (2.0-8.3); Neutrophils Percent Auto 77.9 % (45-73); Platelet Count 197 X10*3/uL (160-400); Red Blood Count 4.42 X10*6/uL (4.60-5.80); Red Cell Distribution Width 14.3 % (11.0-16.0)
== END 2023-09-27 11:01 | disposition home or self-care (01) ==
LOC: HO.LAB 11:00
PROVIDERS: PCP Internal Medicine; Visit Provider Clinical Nurse Specialist Psychiatric/Mental Health, Adult
DX: Z79.899 Other long term (current) drug therapy (principal)
CPT/HCPCS: 36415; 85025

== ENCOUNTER 2023-10-20 14:13 | Outpatient (REF) | payer MEDICARE, MEDICAID, SELFPAY ==
[2023-10-20 14:31] LABS: MANUAL DIFF FLAG NO
[2023-10-20 14:48] LABS: Basophils Percent Auto 0.6 % (0-2); Eosinophils Absolute Auto 0.1 X10*3/uL (0.0-0.4); Eosinophils Percent Auto 1.5 % (0-4); Hematocrit 36.8 % (42.0-52.0); Hemoglobin 11.6 g/dl (14.0-18.0); Imm Gran Abs Auto 0.02 X10*3/uL (0.00-0.03); Imm Gran Pct Auto 0.3 % (0.0-0.4); Lymphocytes Absolute Auto 1.9 X10*3/uL (1.2-4.9); Lymphocytes Percent Auto 28.1 % (20-40); Mean Corpuscular HGB Conc 31.5 g/dl (31.0-36.0); Mean Corpuscular Hemoglobin 26.7 pg (27.0-33.0); Mean Corpuscular Volume 84.8 fL (80.0-98.0); Mean Platelet Volume 12.2 fL (9.4-12.4); Monocytes Absolute Auto 0.6 X10*3/uL (0.1-1.2); Monocytes Percent Auto 9.2 % (2-11); Neutrophils Absolute Auto 4.1 x10*3/uL (2.0-8.3); Neutrophils Percent Auto 60.3 % (45-73); Platelet Count 236 X10*3/uL (160-400); Red Blood Count 4.34 X10*6/uL (4.60-5.80); Red Cell Distribution Width 14.9 % (11.0-16.0); White Blood Count 6.7 X10*3/uL (4.8-10.8)
== END 2023-10-20 14:14 | disposition home or self-care (01) ==
LOC: HO.LAB 14:13
PROVIDERS: PCP Internal Medicine; Visit Provider Clinical Nurse Specialist Psychiatric/Mental Health, Adult
DX: Z79.899 Other long term (current) drug therapy (principal)
CPT/HCPCS: 36415; 85025

== ENCOUNTER 2023-12-09 10:40 | Outpatient (AMB) | payer MEDICARE, MEDICAID, SELFPAY ==
[2023-12-09 10:44] VITALS: BP 126/68; PULSE 103; O2SAT 95; BMI 35.8
--- NOTE | 2023-12-09 10:44 | MHC.PC.OV ---
Vital Signs 12/09/23 10:44 Height 5 ft 11 in Weight 257 lb BMI 35.8 BP 126/68 Blood Pressure Location Lt brachial Position Sitting Pulse 103 H Pulse Source Pulse Oximeter Pulse Oximetry (%) 95 Oxygen Delivery Method Room Air Intake Visit Reasons: DM Residential Nurse Required: No Accompanied by: Self / Same As Patient Allergies No Known Allergies Allergy (Unknown, Verified 12/09/23 10:56) NOT APPLICABLE Tobacco use date assessed: 12/09/23 Dental Screening Dental Screen Date: 12/09/23 Did you have a dental visit in the last 12 months?: No Did you have a dental problem in the last 6 months where you did not have access to dental care?: No Was dental information given to patient?: Patient declined HPI DM HPI Details 53-year-old obese male with diabetes mellitus hypertension GERD hypercholesterolemia and schizophrenia last seen in August 2023.. Review of the notes last blood work was October 20 showing chronic anemia. Cholesterol test is overdue LDL goal of less than 100. Last time done August 2022. . Patient is by himself and blood work requested not done still ? called the social workerVandana spoke to them on the things that we need to do with regards to getting his blood work done increased Wolfgang does to help with diabetes, and reminded about the Cologuard testing requested. [facility] Medical History (Updated 12/09/23 @ 11:01 by Karol Coronel MD) Dyslipidemia Lump of skin of left lower extremity Adjustment disorder RUQ abdominal pain Injury to scrotum salvage determiner (current) use of insulin Blind left eye Obesity (BMI 30-39.9) Diabetic nephropathy GERD (gastroesophageal reflux disease) Vitamin D deficiency Schizophrenia Asthma Type 2 diabetes mellitus with hyperglycemia Hypertension Surgical History History of removal of cyst History of appendectomy Family History Father No problems noted. Mother No problems noted. Social History Housing: Assisted Living Facility Alcohol intake: never Patient Tobacco Use Status: Never used Tobacco e-Cigarette/Vaping Use: Never Used Second Hand Smoke Exposure: No service: No Current occupational status: disabled Cognitive needs: Yes Hearing needs: No Vision needs: No Questionnaire PHQ-9 Over the last 2 weeks, how often have you been bothered by any of the following problems? 1. Little interest or pleasure in doing things: not at all 2. Feeling down, depressed, or hopeless: not at all 3. Trouble falling or staying asleep, or sleeping too much: not at all 4. Feeling tired or having little energy: not at all 5. Poor appetite or overeating: not at all 6. Feeling bad about yourself - or that you are a failure or have let yourself or your family down: not at all 7. Trouble concentrating on things, such as reading the newspaper or watching television: not at all 8. Moving or speaking so slowly that other people could have noticed. Or the opposite - being so fidgety or restless that you have been moving around a lot more than usual: not at all 9. Thoughts that you would be better off or of hurting yourself in some way: not at all Total score: 0 Depression Screening Interpretation: Negative Depression Screening Done: Yes 21593 - PHQ-9 Billing: Yes Source: Developed by Drs. Ollie Gray, Vanessa Mclean, Michael Crook and colleagues, with an educational cecilia from [employer]. Thrive Questionnaire Date Thrive assessed: 12/09/23 I am a: Patient What is your living situation today?: I have a steady place to live Within the past 12 months, did the food you bought not last and you didn't have the money to get more?: Never true Within the past 12 months, did you worry whether your food would run out before you got money to buy more?: Never true Do you have trouble paying for medicines?: No Do you have trouble getting transportation to medical appointments?: No Do you have trouble paying your heating and electricity bill?: No Do you have trouble taking care of your child, family member or friend?: No Do you have trouble with day-to-day activities such as bathing, preparing meals, shopping, managing finances, etc.?: No Are you currently unemployed and looking for a job?: No Are you interested in more education?: No Please select the resources that you would like help with: None Currently or been in a relationship where the following occur: no concerns reported THRIVE Score: 0 AUDIT C Alcohol Use Questionnaire (AUDIT-C) 1. How often do you have a drink containing alcohol?: Never 3. How often do you have six or more drinks on one occasion?: Never Total Score: 0 Score Reviewed/Action Taken: No JC-7 AMB Questionnaire JC-7 Date JC - 7 assessed: 12/09/23 Not being able to stop or control worryin = Not at all Worrying too much about different things: 0 = Not at all Trouble relaxin = Not at all Being so restless that it is hard to sit still: 0 = Not at all Becoming easily annoyed or irritable: 0 = Not at all Feeling afraid as if something awful might happen: 0 = Not at all Source: Developed by Drs. Ollie Gray, Vanessa Mclean, Michael Crook and colleagues, with an educational cecilia from [employer]. JC-7 Assessment Billing JC-7 Assessment Tool: JC-7 Assessment 09071 Physical exam (Primary Care) Vital Signs: Last Vital Signs Pulse 103 H 12/09/23 10:44 BP 126/68 12/09/23 10:44 Pulse Ox 95 12/09/23 10:44 Oxygen Delivery Method Room Air 12/09/23 10:44 BMI result Body Mass Index 35.8 Tobacco/Smoking Status: Tobacco use Status Tobacco use date assessed 02/03/23 12/09/23 10:44 Patient Tobacco Use Status Never used Tobacco 12/09/23 10:44 e-Cigarette/Vaping Use Never Used 12/09/23 10:44 Depression Screening Interpretation: Negative Thrive Assessment: Date of Thrive Assessment Date Thrive assessed 02/03/23 12/09/23 10:44 Currently or been in a relationship where the following occur: no concerns reported Const General: alert; No acute distress Eyes Conjunctivae: conjunctivae normal Resp Auscultation: clear to auscultation bilaterally Cardio Rate: regular rate Rhythm: regular rhythm GI Inspection: Yes normal to inspection Extrem General: Yes normal to inspection and No edema Results AMB Hemoglobin A1c AMB Hemoglobin A1c 8.1 % Last Edit by ALISA Marsh on 12/09/23 11:01 Assessment and Plan Assessment & Plan (1) Type 2 diabetes mellitus with hyperglycemia: Comment: Dr. David Zhao Located at [facility] and [facility] Code(s): E11.65 - Type 2 diabetes mellitus with hyperglycemia Qualifiers: Diabetes mellitus intermediate insulin use: with salvage determiner use Qualified Code(s): E11.65 - Type 2 diabetes mellitus with hyperglycemia; Z79.4 - salvage determiner (current) use of insulin Plan: Decrease the amount of carbohydrate intake, pasta, bread, rice and potatoes are all sugar and that is aside from all the sweet stuff, remember that fruits are good but they are Sweet also. Continue to follow-up with Podiatry and eye exam presently on Jardiance 25 mg once a day insulin 70 30 NovoLog mix metformin a 1000 mg twice a day and Mounjaro (2) Hypertension: Code(s): I10 - Essential (primary) hypertension Qualifiers: Hypertension type: essential hypertension Qualified Code(s): I10 - Essential (primary) hypertension Plan: Continue with blood pressure medication. Decrease salt intake and exercise presently on lisinopril 5 mg once a day (3) GERD (gastroesophageal reflux disease): Code(s): K21.9 - Gastro-esophageal reflux disease without esophagitis Qualifiers: Esophagitis presence: without esophagitis Qualified Code(s): K21.9 - Gastro-esophageal reflux disease without esophagitis Plan: Avoid the foods that causes that usually spicy foods, tomato products, juices, coffee, soda and foods that your sensitive to. After eating do not lie down, allow 3-4 hours before in lie down. And keep the head of bed above 30 degrees to avoid the acid from going up. (4) Obesity (BMI 30-39.9): Code(s): E66.9 - Obesity, unspecified Plan: Diet and exercise (5) Hypercholesterolemia: Code(s): E78.00 - Pure hypercholesterolemia, unspecified Plan: Avoid fried foods, chicken skin, eggs, butter margarine, pastries and meat. Be it pork or beef they have a lot of cholesterol LDL goal of less than 100 and triglyceride of less than 150. Patient on atorvastatin 10 mg once a day and fenofibrate (6) Colon cancer screening: Code(s): Z12.11 - Encounter for screening for malignant neoplasm of colon Plan: Reminded about colonoscopy (7) Fatty liver: Code(s): K76.0 - Fatty (change of) liver, not elsewhere classified Plan: Low-fat diet and exercise (8) Schizophrenia: Comment: Tra Diego Code(s): F20.9 - Schizophrenia, unspecified Qualifiers: Schizophrenia type: disorganized schizophrenia Qualified Code(s): F20.1 - Disorganized schizophrenia Plan: Continue to follow-up with psychiatry and counseling. Orders: Orders AMB Hemoglobin A1c Today E11.65 - Type 2 diabetes mellitus with hyperglycemia Medications: Changed From tirzepatide (Mounjaro) 5 mg (0.5 mL) subcut QWEEK 2 mL 4RF E11.65 - Type 2 diabetes mellitus with hyperglycemia To tirzepatide 7.5 mg (0.5 mL) subcut QWEEK 30 days 2.5 mL 4RF E11.65 - Type 2 diabetes mellitus with hyperglycemia Coding Level of Care Code Est Pt Level 4 (10165) Diagnoses Type 2 diabetes mellitus with hyperglycemia, with long-term current use of insulin E11.65; Z79.4 Diabetes mellitus salvage determiner insulin use: with salvage determiner use Essential hypertension I10 Hypertension type: essential hypertension Gastroesophageal reflux disease without esophagitis K21.9 Esophagitis presence: without esophagitis Obesity (BMI 30-39.9) E66.9 Hypercholesterolemia E78.00 Colon cancer screening Z12.11 Fatty liver K76.0 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
== END 2023-12-09 11:21 | disposition home or self-care (01) ==
PROVIDERS: PCP Internal Medicine; Visit Provider Internal Medicine
DX: E11.65 Type 2 diabetes mellitus with hyperglycemia (principal); Z79.4 Long term (current) use of insulin; F20.1 Disorganized schizophrenia; E66.9 Obesity, unspecified; K21.9 Gastro-esophageal reflux disease without esophagitis; I10 Essential (primary) hypertension; E78.00 Pure hypercholesterolemia, unspecified; Z12.11 Encounter for screening for malignant neoplasm of colon; K76.0 Fatty (change of) liver, not elsewhere classified
CPT/HCPCS: 83036; 99214

== ENCOUNTER 2023-12-14 11:38 | Outpatient (REF) | payer MEDICARE, MEDICAID, SELFPAY ==
[2023-12-14 11:56] LABS: MANUAL DIFF FLAG NO
[2023-12-14 12:14] LABS: Basophils Absolute Auto 0.1 X10*3/uL (0.0-0.2); Basophils Percent Auto 0.9 % (0-2); Eosinophils Absolute Auto 0.1 X10*3/uL (0.0-0.4); Eosinophils Percent Auto 1.4 % (0-4); Hematocrit 39.9 % (42.0-52.0); Hemoglobin 12.5 g/dl (14.0-18.0); Imm Gran Abs Auto 0.02 X10*3/uL (0.00-0.03); Imm Gran Pct Auto 0.3 % (0.0-0.4); Lymphocytes Absolute Auto 2.1 X10*3/uL (1.2-4.9); Lymphocytes Percent Auto 30.5 % (20-40); Mean Corpuscular HGB Conc 31.3 g/dl (31.0-36.0); Mean Corpuscular Hemoglobin 26.3 pg (27.0-33.0); Monocytes Absolute Auto 0.6 X10*3/uL (0.1-1.2); Monocytes Percent Auto 8.1 % (2-11); Neutrophils Absolute Auto 4.1 x10*3/uL (2.0-8.3); Neutrophils Percent Auto 58.8 % (45-73); Platelet Count 270 X10*3/uL (160-400); Red Blood Count 4.75 X10*6/uL (4.60-5.80); Red Cell Distribution Width 15.2 % (11.0-16.0)
== END 2023-12-14 11:39 | disposition home or self-care (01) ==
LOC: HO.LABR 11:38
PROVIDERS: Visit Provider Clinical Nurse Specialist Psychiatric/Mental Health, Adult
DX: Z79.899 Other long term (current) drug therapy (principal)
CPT/HCPCS: 36415; 85025

== ENCOUNTER 2023-12-19 11:22 | Outpatient (AMB) | payer MEDICARE, MEDICAID, SELFPAY ==
[2023-12-19 11:24] VITALS: BP 134/70; PULSE 101; BMI 36.6
--- NOTE | 2023-12-19 11:24 | MHC.OFFVIS ---
Intake Vital Signs 12/19/23 11:24 Height 5 ft 11 in Weight 262 lb 9.129 oz BMI 36.6 BP 134/70 Blood Pressure Location Lt brachial Position Sitting Pulse 101 H Pulse Source Pulse Oximeter Intake Visit Reasons: DM-no vm option Intake Note: Patient present today to follow up on Type 2 Diabetes Mellitus. Last Diabetic Eye exam: 07/14/2023 [facility] Last Podiatry Visit: 09/22/2023 [facility] Random Glucose: 346 mg/dl HgA1C: 8.1% 12/09/23 Calender Operator Helper Required: No Accompanied by: Other Relationship Allergies No Known Allergies Allergy (Unknown, Verified 12/19/23 11:30) NOT APPLICABLE HPI HPI Comments History of Present Illness Details Patient is 53-year-old male with DM type 2 diagnosed in 2014 who presents for management of diabetes. P Given his nursing services in her only twice a day he was switch to NovoLog mix 70/30 and patient was advised the importance of eating 3 times a day. Presents with CHD worker. 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 Micro and macrovascular complications: Diabetes medications: Humalog Mix 70/30 60 units before breakfast and 40 units before dinner. Mounjaro 7.5 mg Qwkly metformin 1000 mg twice a day, Jardiance 25 mg daily Glucometer download shows she is checking his point cares twice a day. Average glucose is 290 with range of 190-420. 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 Laboratory Tests 04/07/21 04/07/21 04/07/21 11:47 11:47 11:47 Hgb Creatinine 0.80 Estimated GFR > 60 Hemoglobin A1c % 9.2 Triglycerides 327 Cholesterol 133 LDL Cholesterol, C alc 46 HDL Cholesterol 22 Vitamin B12 409 TSH 0.80 08/27/21 12:11 Hgb 13.2 L Creatinine Estimated GFR Hemoglobin A1c % Triglycerides Cholesterol LDL Cholesterol, C alc HDL Cholesterol Vitamin B12 TSH [facility] Medical History (Updated 12/09/23 @ 11:01 by Karol Coronel MD) Dyslipidemia Lump of skin of left lower extremity Adjustment disorder RUQ abdominal pain Injury to scrotum intermediate designer (current) use of insulin Blind left eye Obesity (BMI 30-39.9) Diabetic nephropathy GERD (gastroesophageal reflux disease) Vitamin D deficiency Schizophrenia Asthma Type 2 diabetes mellitus with hyperglycemia Hypertension Surgical History History of removal of cyst History of appendectomy Family History Father No problems noted. Mother No problems noted. Social History Housing: Assisted Living Facility Alcohol intake: never Patient Tobacco Use Status: Never used Tobacco e-Cigarette/Vaping Use: Never Used Second Hand Smoke Exposure: No service: No Current occupational status: disabled Cognitive needs: Yes Hearing needs: No Vision needs: No Physical Exam Vital Signs: Last Vital Signs Pulse 101 H 12/19/23 11:24 BP 134/70 12/19/23 11:24 BMI result Body Mass Index 36.6 Absence of Cushingoid features. Absence of acromegalic features. Neck exam reveals nl size thyroid about 15 gms. No thyroid nodules palpable. No carotid bruits present. Lungs CTA. Heart S1 S2, Reg R/R. No M/R/ G. Skin exam reveals absence of vitiligo or acanthosis nigricans. Abdominal exam reveals Soft NT/ND with NA BS. No organomegaly present. Neck Other: . Extrem Other: Visual exam of foot performed. No ulcerations or open lesions. No onchomycosis, no callouses.Pulses 2 + distally Sensation intact to monofilament exam. Vibratory sensation sensed is intact with 128 Hz tuning fork Assessment & Plan Assessment & Plan (1) Type 2 diabetes mellitus with hyperglycemia: Comment: Dr. David Zhao Located at [facility] Code(s): E11.65 - Type 2 diabetes mellitus with hyperglycemia Qualifiers: Diabetes mellitus prison insulin use: with termite treater use Qualified Code(s): E11.65 - Type 2 diabetes mellitus with hyperglycemia; Z79.4 - intermediate designer (current) use of insulin Plan: This 53-year-old white male with a history of type 2 diabetes being treated with metformin, Trulicity, Jardiance and premixed insulin with poor glycemic control and no known microvascular or macrovascular complication Plan is to increase 70 /30 insulin to 75 in the morning and 50 before dinner. I will schedule him for an appointment with the reservation agent. His glycemic control is limited by psychosocial circumstances and his inability to take more than 2 injections today of premixed insulin. His hemoglobin A1c is optimized considering the above for He would benefit from the use of a continuous glucose sensor but is not able to handle it in the current environment in which he lives Coding Level of Care Code Est Pt Level 4 (88954) Diagnoses Type 2 diabetes mellitus with hyperglycemia, with long-term current use of insulin E11.65; Z79.4 Diabetes mellitus termite treater insulin use: with prison use
[2023-12-19 11:38] LABS: Glucose, Whole Blood 346 mg/dL (60-115)
== END 2023-12-19 11:48 | disposition home or self-care (01) ==
PROVIDERS: PCP Internal Medicine; Visit Provider Internal Medicine Endocrinology, Diabetes & Metabolism
DX: E11.65 Type 2 diabetes mellitus with hyperglycemia (principal); Z79.4 Long term (current) use of insulin
CPT/HCPCS: 99214

== ENCOUNTER → 2023-12-19 11:22 | Outpatient (BNVA) | payer MEDICARE, MEDICAID, SELFPAY | PROVIDERS: PCP Internal Medicine; Visit Provider Internal Medicine Endocrinology, Diabetes & Metabolism | DX: E11.65 Type 2 diabetes mellitus with hyperglycemia (principal); Z79.4 Long term (current) use of insulin | CPT/HCPCS: 82947; 99212 ==

== ENCOUNTER 2024-01-23 13:40 | Outpatient (REF) | payer MEDICARE, MEDICAID, SELFPAY ==
[2024-01-23 13:51] LABS: MANUAL DIFF FLAG NO
[2024-01-23 14:14] LABS: Basophils Percent Auto 0.5 % (0-2); Eosinophils Absolute Auto 0.1 X10*3/uL (0.0-0.4); Eosinophils Percent Auto 1.5 % (0-4); Hematocrit 39.3 % (42.0-52.0); Hemoglobin 12.6 g/dl (14.0-18.0); Imm Gran Abs Auto 0.03 X10*3/uL (0.00-0.03); Imm Gran Pct Auto 0.4 % (0.0-0.4); Lymphocytes Absolute Auto 2.7 X10*3/uL (1.2-4.9); Lymphocytes Percent Auto 34.1 % (20-40); Mean Corpuscular HGB Conc 32.1 g/dl (31.0-36.0); Mean Corpuscular Hemoglobin 26.7 pg (27.0-33.0); Mean Corpuscular Volume 83.3 fL (80.0-98.0); Mean Platelet Volume 11.6 fL (9.4-12.4); Monocytes Absolute Auto 0.6 X10*3/uL (0.1-1.2); Neutrophils Absolute Auto 4.4 x10*3/uL (2.0-8.3); Neutrophils Percent Auto 56.5 % (45-73); Platelet Count 241 X10*3/uL (160-400); Red Blood Count 4.72 X10*6/uL (4.60-5.80); Red Cell Distribution Width 15.7 % (11.0-16.0); White Blood Count 7.8 X10*3/uL (4.8-10.8)
== END 2024-01-23 13:41 | disposition home or self-care (01) ==
LOC: HO.LABR 13:40
PROVIDERS: PCP Internal Medicine; Visit Provider Clinical Nurse Specialist Psychiatric/Mental Health, Adult
DX: Z79.899 Other long term (current) drug therapy (principal)
CPT/HCPCS: 36415; 85025

== ENCOUNTER 2024-02-16 13:46 | Outpatient (REF) | payer MEDICARE, MEDICAID, SELFPAY ==
[2024-02-16 14:02] LABS: MANUAL DIFF FLAG NO
[2024-02-16 14:51] LABS: Basophils Percent Auto 0.4 % (0-2); Eosinophils Absolute Auto 0.1 X10*3/uL (0.0-0.4); Eosinophils Percent Auto 1.4 % (0-4); Hematocrit 38.4 % (42.0-52.0); Imm Gran Abs Auto 0.02 X10*3/uL (0.00-0.03); Imm Gran Pct Auto 0.3 % (0.0-0.4); Lymphocytes Absolute Auto 2.6 X10*3/uL (1.2-4.9); Lymphocytes Percent Auto 33.3 % (20-40); Mean Corpuscular HGB Conc 31.3 g/dl (31.0-36.0); Mean Corpuscular Hemoglobin 26.6 pg (27.0-33.0); Mean Corpuscular Volume 85.1 fL (80.0-98.0); Mean Platelet Volume 11.7 fL (9.4-12.4); Monocytes Absolute Auto 0.6 X10*3/uL (0.1-1.2); Monocytes Percent Auto 7.3 % (2-11); Neutrophils Absolute Auto 4.4 x10*3/uL (2.0-8.3); Neutrophils Percent Auto 57.3 % (45-73); Platelet Count 228 X10*3/uL (160-400); Red Blood Count 4.51 X10*6/uL (4.60-5.80); Red Cell Distribution Width 15.6 % (11.0-16.0); White Blood Count 7.7 X10*3/uL (4.8-10.8)
== END 2024-02-16 13:47 | disposition home or self-care (01) ==
LOC: HO.LAB 13:46
PROVIDERS: Visit Provider Clinical Nurse Specialist Psychiatric/Mental Health, Adult
DX: Z79.899 Other long term (current) drug therapy (principal)
CPT/HCPCS: 36415; 85025

== ENCOUNTER 2024-03-20 11:31 | Outpatient (REF) | payer MEDICARE, MEDICAID, SELFPAY ==
[2024-03-20 11:51] LABS: MANUAL DIFF FLAG NO
[2024-03-20 12:10] LABS: Basophils Percent Auto 0.5 % (0-2); Eosinophils Absolute Auto 0.1 X10*3/uL (0.0-0.4); Eosinophils Percent Auto 1.3 % (0-4); Hematocrit 38.5 % (42.0-52.0); Hemoglobin 11.8 g/dl (14.0-18.0); Imm Gran Abs Auto 0.03 X10*3/uL (0.00-0.03); Imm Gran Pct Auto 0.4 % (0.0-0.4); Lymphocytes Absolute Auto 1.8 X10*3/uL (1.2-4.9); Lymphocytes Percent Auto 23.9 % (20-40); Mean Corpuscular HGB Conc 30.6 g/dl (31.0-36.0); Mean Corpuscular Hemoglobin 26.6 pg (27.0-33.0); Mean Corpuscular Volume 86.9 fL (80.0-98.0); Mean Platelet Volume 11.9 fL (9.4-12.4); Monocytes Absolute Auto 0.5 X10*3/uL (0.1-1.2); Monocytes Percent Auto 6.8 % (2-11); Neutrophils Percent Auto 67.1 % (45-73); Platelet Count 241 X10*3/uL (160-400); Red Blood Count 4.43 X10*6/uL (4.60-5.80); Red Cell Distribution Width 15.8 % (11.0-16.0); White Blood Count 7.5 X10*3/uL (4.8-10.8)
== END 2024-03-20 11:32 | disposition home or self-care (01) ==
LOC: HO.LABR 11:31
PROVIDERS: Visit Provider Clinical Nurse Specialist Psychiatric/Mental Health, Adult
DX: Z79.899 Other long term (current) drug therapy (principal)
CPT/HCPCS: 36415; 85025

== ENCOUNTER 2024-04-13 13:44 | Outpatient (REF) | payer MEDICARE, MEDICAID, SELFPAY ==
[2024-04-13 14:05] LABS: MANUAL DIFF FLAG NO
[2024-04-13 15:02] LABS: Basophils Percent Auto 0.6 % (0-2); Eosinophils Absolute Auto 0.1 X10*3/uL (0.0-0.4); Eosinophils Percent Auto 1.7 % (0-4); Hematocrit 37.8 % (42.0-52.0); Hemoglobin 12.2 g/dl (14.0-18.0); Imm Gran Abs Auto 0.01 X10*3/uL (0.00-0.03); Imm Gran Pct Auto 0.1 % (0.0-0.4); Lymphocytes Absolute Auto 2.7 X10*3/uL (1.2-4.9); Lymphocytes Percent Auto 37.1 % (20-40); Mean Corpuscular HGB Conc 32.3 g/dl (31.0-36.0); Mean Corpuscular Hemoglobin 27.6 pg (27.0-33.0); Mean Corpuscular Volume 85.5 fL (80.0-98.0); Mean Platelet Volume 12.4 fL (9.4-12.4); Monocytes Absolute Auto 0.5 X10*3/uL (0.1-1.2); Monocytes Percent Auto 6.6 % (2-11); Neutrophils Absolute Auto 3.9 x10*3/uL (2.0-8.3); Neutrophils Percent Auto 53.9 % (45-73); Platelet Count 222 X10*3/uL (160-400); Red Blood Count 4.42 X10*6/uL (4.60-5.80); White Blood Count 7.2 X10*3/uL (4.8-10.8)
[2024-04-13 15:27] LABS: Uric Acid 5.3 mg/dL (3.4-7.0)
== END 2024-04-13 13:45 | disposition home or self-care (01) ==
LOC: HO.LAB 13:44
PROVIDERS: PCP Internal Medicine; Visit Provider Clinical Nurse Specialist Psychiatric/Mental Health, Adult
DX: Z79.899 Other long term (current) drug therapy (principal)
CPT/HCPCS: 36415; 84550; 85025

== ENCOUNTER 2024-05-11 13:35 | Outpatient (REF) | payer MEDICARE, MEDICAID, SELFPAY ==
[2024-05-11 13:51] LABS: MANUAL DIFF FLAG NO
[2024-05-11 14:04] LABS: Basophils Percent Auto 0.5 % (0-2); Eosinophils Absolute Auto 0.1 X10*3/uL (0.0-0.4); Eosinophils Percent Auto 1.6 % (0-4); Hematocrit 38.6 % (42.0-52.0); Hemoglobin 12.3 g/dl (14.0-18.0); Imm Gran Abs Auto 0.03 X10*3/uL (0.00-0.03); Imm Gran Pct Auto 0.4 % (0.0-0.4); Lymphocytes Absolute Auto 2.4 X10*3/uL (1.2-4.9); Mean Corpuscular HGB Conc 31.9 g/dl (31.0-36.0); Mean Corpuscular Hemoglobin 27.1 pg (27.0-33.0); Mean Platelet Volume 11.8 fL (9.4-12.4); Monocytes Absolute Auto 0.6 X10*3/uL (0.1-1.2); Monocytes Percent Auto 7.7 % (2-11); Neutrophils Absolute Auto 4.3 x10*3/uL (2.0-8.3); Neutrophils Percent Auto 57.8 % (45-73); Platelet Count 222 X10*3/uL (160-400); Red Blood Count 4.54 X10*6/uL (4.60-5.80); Red Cell Distribution Width 15.3 % (11.0-16.0); White Blood Count 7.5 X10*3/uL (4.8-10.8)
== END 2024-05-11 13:36 | disposition home or self-care (01) ==
LOC: HO.LAB 13:35
PROVIDERS: Visit Provider Clinical Nurse Specialist Psychiatric/Mental Health, Adult
DX: Z79.899 Other long term (current) drug therapy (principal)
CPT/HCPCS: 36415; 85025

== ENCOUNTER 2024-07-03 13:25 | Outpatient (REF) | payer MEDICARE, MEDICAID, SELFPAY ==
[2024-07-03 13:54] LABS: MANUAL DIFF FLAG NO
[2024-07-03 14:27] LABS: Basophils Absolute Auto 0.1 X10*3/uL (0.0-0.2); Basophils Percent Auto 0.8 % (0-2); Eosinophils Absolute Auto 0.1 X10*3/uL (0.0-0.4); Eosinophils Percent Auto 1.6 % (0-4); Hematocrit 36.7 % (42.0-52.0); Hemoglobin 11.5 g/dl (14.0-18.0); Imm Gran Abs Auto 0.01 X10*3/uL (0.00-0.03); Imm Gran Pct Auto 0.2 % (0.0-0.4); Lymphocytes Absolute Auto 2.5 X10*3/uL (1.2-4.9); Lymphocytes Percent Auto 39.5 % (20-40); Mean Corpuscular HGB Conc 31.3 g/dl (31.0-36.0); Mean Corpuscular Hemoglobin 27.1 pg (27.0-33.0); Mean Corpuscular Volume 86.4 fL (80.0-98.0); Monocytes Absolute Auto 0.6 X10*3/uL (0.1-1.2); Monocytes Percent Auto 9.2 % (2-11); Neutrophils Absolute Auto 3.1 x10*3/uL (2.0-8.3); Neutrophils Percent Auto 48.7 % (45-73); Platelet Count 226 X10*3/uL (160-400); Red Blood Count 4.25 X10*6/uL (4.60-5.80); Red Cell Distribution Width 15.2 % (11.0-16.0); White Blood Count 6.4 X10*3/uL (4.8-10.8)
== END 2024-07-03 13:26 | disposition home or self-care (01) ==
LOC: HO.LABR 13:25
PROVIDERS: Visit Provider Clinical Nurse Specialist Psychiatric/Mental Health, Adult
DX: Z79.899 Other long term (current) drug therapy (principal)
CPT/HCPCS: 36415; 85025

== ENCOUNTER 2024-07-10 14:23 | Outpatient (AMB) | payer MEDICARE, MEDICAID, SELFPAY ==
--- NOTE | 2024-07-10 14:25 | A.OFFVIS_ITS ---
Vital Signs 07/10/24 14:31 Height 5 ft 11 in Weight 273 lb 2.444 oz BMI 38.1 BP 138/74 Blood Pressure Location Rt brachial Position Sitting Pulse 74 Pulse Source Pulse Oximeter Intake Visit Reasons: DM Intake Note: Patient present today to follow up on Type 2 Diabetes Mellitus. Last Diabetic Eye exam: around February or March 2024 Last Podiatry Visit: 05/02/24 Random Glucose: 358 mg/dl HgA1C: 8.2% Rose Grower Required: No Accompanied by: COMMUNITY DEVELOPMENT DIRECTOR Allergies No Known Allergies Allergy (Unknown, Verified 07/10/24 14:32) NOT APPLICABLE Medication List - Last Reconciled 07/10/24 by Ollie Michael MD acetaminophen (Tylenol Extra Strength) 500 mg PO Q6H PRN alcohol swabs (Alcohol Prep Pads) use topically 4X/DAY; atorvastatin 10 mg PO DAILY 90 days benztropine 1 mg PO BEDTIME bisacodyl (Dulcolax (bisacodyl)) 10 mg (2 x 5 mg) PO ONCE 1 day bisacodyl (Dulcolax (bisacodyl)) 20 mg (4 x 5 mg) PO ONCE 1 day blood pressure monitor (Blood Pressure Kit) As directed brimonidine 0.1% (Alphagan P) 1 drp ophthalmic (eye) .BID R eye 30 days cholecalciferol (vitamin D3) 50 mcg PO DAILY clozapine (Clozaril) 200 mg PO daily at 5pm; clozapine (Clozaril) 100 mg PO BEDTIME divalproex ER (Depakote ER) 500 mg PO DAILY divalproex ER (Depakote ER) 1,000 mg PO DAILY docusate sodium (Colace) 100 mg PO BID 90 days dulaglutide (Trulicity) 1.5 mg (0.5 mL) subcut QWEEK empagliflozin (Jardiance) 25 mg PO DAILY fenofibrate 160 mg orally every day at 5pm; glucose (Dex4 Glucose) 12 grams (3 x 4 gram) PO Q15M PRN haloperidol 2.5 mg PO BID latanoprost 0.005% (Xalatan) 1 drp ophthalmic (eye) BID lisinopril 5 mg PO DAILY metformin 1,000 mg PO BID naproxen (Naprosyn) 500 mg PO BID Novolog Mix 70-30FlexPen U-100 100 unit/mL (70-30) (insulin asp prt-insulin aspart) 75 units before breakfast and 50 units before dinner subcutaneously 2 times a day; 30 days NS omeprazole 20 mg PO DAILY pen needle, diabetic (BD Shayy 2nd Gen Pen Needle) USE DIRECTED 3 TIMES A DAY pen needle, diabetic (BD Shayy 2nd Gen Pen Needle) 5 times a day polyethylene glycol 3350 (Miralax) 238 grams PO ONCE 1 day [pressure cuf monitor As directed] sennosides (senna) 17.2 mg PO BEDTIME sertraline (Zoloft) 150 mg PO DAILY HPI Comments Details: Patient is 54-year-old male with DM type 2 diagnosed in 2014 who presents for management of diabetes. P Given his nursing services in her only twice a day he was switch to NovoLog mix 70/30 and patient was advised the importance of eating 3 times a day. Presents with CHD worker. 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 Micro and macrovascular complications: Diabetes medications: Novolog Mix 70/30 75 units before breakfast and 50 units before dinner. Mounjaro 7.5 mg Qwkly metformin 1000 mg twice a day, Jardiance 25 mg daily Glucometer download shows she is checking his point cares twice a day. Average glucose is 264 with range of 189-453. 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 Mother No problems noted. Social History Housing: Assisted Living Facility Alcohol intake: never Patient Tobacco Use Status: Never used Tobacco e-Cigarette/Vaping Use: Never Used Second Hand Smoke Exposure: No service: No Current occupational status: disabled Cognitive needs: Yes Hearing needs: No Vision needs: No Physical Exam Vital Signs: Last Vital Signs Pulse 74 07/10/24 14:31 BP 138/74 07/10/24 14:31 BMI result Body Mass Index 38.1 Absence of Cushingoid features. Absence of acromegalic features. Neck exam reveals nl size thyroid about 15 gms. No thyroid nodules palpable. No carotid bruits present. Lungs CTA. Heart S1 S2, Reg R/R. No M/R/ G. Skin exam reveals absence of vitiligo or acanthosis nigricans. Abdominal exam reveals Soft NT/ND with NA BS. No organomegaly present. Neck Other: . Extrem Other: Visual exam of foot performed. No ulcerations or open lesions. No onchomycosis, no callouses.Pulses 2 + distally Sensation intact to monofilament exam. Vibratory sensation sensed is intact with 128 Hz tuning fork Results AMB Hemoglobin A1c AMB Hemoglobin A1c 8.2 % Last Edit by DARIUS Kelley on 07/10/24 14:54 Results Reviewed Results Reviewed: Laboratory Last Values Glucose (Clinic) 358 mg/dL (60-115) H* 07/10/24 14:43 Assessment & Plan Assessment & Plan (1) Type 2 diabetes mellitus with hyperglycemia: Comment: Dr. David Zhao Located at [facility] Code(s): E11.65 - Type 2 diabetes mellitus with hyperglycemia Category: Medical Qualifiers: Diabetes mellitus long term care pharmacist insulin use: with shelter use Qualified Code(s): E11.65 - Type 2 diabetes mellitus with hyperglycemia; Z79.4 - vermin exterminator (current) use of insulin Plan: This 54-year-old white male with a history of type 2 diabetes being treated with metformin, Trulicity, Jardiance and premixed insulin with poor glycemic control and no known microvascular or macrovascular complication Plan is to change the Trulicity back to Mounjaro 5 mg Q weekly. . His glycemic control is limited by psychosocial circumstances and his inability to take more than 2 injections today of premixed insulin. His hemoglobin A1c is optimized considering the above for He would benefit from the use of a continuous glucose sensor but is not able to handle it in the current environment in which he lives. Will check lipid profile and microalbumin to creatinine ratio. Patient will follow up with primary care diabetes team here about 1 month's time Orders: Orders AMB Hemoglobin A1c Today E11.65 - Type 2 diabetes mellitus with hyperglycemia, Z79.4 - vermin exterminator (current) use of insulin Microalbumin, Random (w Creat) Today E11.65 - Type 2 diabetes mellitus with hyperglycemia, Z79.4 - vermin exterminator (current) use of insulin Lipid Panel Today E11.65 - Type 2 diabetes mellitus with hyperglycemia, Z79.4 - vermin exterminator (current) use of insulin Medications: New tirzepatide (Mounjaro) 5 mg (0.5 mL) subcut QWEEK 2 mL 5RF Discontinued dulaglutide (Trulicity) Discontinued Reason: Doctor's Order 1.5 mg (0.5 mL) subcut QWEEK 2 mL 4RF Coding Level of Care Code Est Pt Level 4 (17860) Diagnoses Type 2 diabetes mellitus with hyperglycemia, with long-term current use of insulin E11.65; Z79.4 Diabetes mellitus long term care pharmacist insulin use: with shelter use
[2024-07-10 14:31] VITALS: BP 138/74; PULSE 74; BMI 38.1
[2024-07-10 14:51] LABS: Glucose, Whole Blood 358 mg/dL (60-115)
== END 2024-07-10 14:57 | disposition home or self-care (01) ==
PROVIDERS: PCP Internal Medicine; Visit Provider Internal Medicine Endocrinology, Diabetes & Metabolism
DX: E11.65 Type 2 diabetes mellitus with hyperglycemia (principal); Z79.4 Long term (current) use of insulin
CPT/HCPCS: 99214

== ENCOUNTER → 2024-07-10 14:23 | Outpatient (BNVA) | payer MEDICARE, MEDICAID, SELFPAY | PROVIDERS: PCP Internal Medicine; Visit Provider Internal Medicine Endocrinology, Diabetes & Metabolism | DX: E11.65 Type 2 diabetes mellitus with hyperglycemia (principal); Z79.4 Long term (current) use of insulin | CPT/HCPCS: 82947; 83036; 99212 ==

== ENCOUNTER 2024-08-07 15:23 | Outpatient (AMB) | payer MEDICARE, MEDICAID, SELFPAY ==
--- NOTE | 2024-08-07 15:25 | A.OFFPC_ITS ---
Vital Signs 08/07/24 15:26 Height 5 ft 11 in Weight 123.377 kg BMI 37.9 BP 128/70 Blood Pressure Location Lt brachial Position Sitting Pulse 87 Pulse Source Pulse Oximeter Pulse Oximetry (%) 97 Oxygen Delivery Method Room Air Intake Visit Reasons: DM Follow up Sole Painter Required: No Allergies No Known Allergies Allergy (Unknown, Verified 08/07/24 15:26) NOT APPLICABLE Tobacco use date assessed: 12/09/23 Dental Screening Dental Screen Date: 12/09/23 HPI DM Follow up HPI Details 54-year-old obese male with schizophreni a having diabetes mellitus uncontrolled hypertension asthma GERD fatty liver nephrolithiasis hypercholesterolemia last seen in 12/27/2023. Patient is reminded about colonoscopy the last time. For the diabetes has been referred to endocrinology and due to psychosocial circumstances only allows to injections of the premixed insulin. Blood work still has not been done for cholesterol. Had a long discussion with the pediatric social worker with the patient regarding patient's case as the patient is compromised with his diabetic care. Hemoglobin A1c remains to be elevated but considering that he gets the shots twice a day only and is not getting proper control of the sugar the complications will be coming sooner regarding blindness heart attacks strokes kidney failure and nerve problems. Patient also complains of having problems with the hearing. [facility] Medical History (Updated 08/07/24 @ 16:06 by Karol Coronel MD) Dyslipidemia Lump of skin of left lower extremity Adjustment disorder RUQ abdominal pain Injury to scrotum [facility] (current) use of insulin Blind left eye Obesity (BMI 30-39.9) Diabetic nephropathy GERD (gastroesophageal reflux disease) Vitamin D deficiency Schizophrenia Asthma Type 2 diabetes mellitus with hyperglycemia Hypertension Surgical History History of removal of cyst History of appendectomy Family History Father No problems noted. Mother No problems noted. Social History Housing: Assisted Living Facility Alcohol intake: never Patient Tobacco Use Status: Never used Tobacco e-Cigarette/Vaping Use: Never Used Second Hand Smoke Exposure: No service: No Current occupational status: disabled Cognitive needs: Yes Hearing needs: No Vision needs: No Questionnaire Thrive Questionnaire Date Thrive assessed: 12/09/23 Are you currently unemployed and looking for a job?: No AUDIT C Alcohol Use Questionnaire (AUDIT-C) 1. How often do you have a drink containing alcohol?: Never 3. How often do you have six or more drinks on one occasion?: Never Total Score: 0 Score Reviewed/Action Taken: No JC-7 AMB Questionnaire JC-7 Date JC - 7 assessed: 12/09/23 Source: Developed by Drs. Ollie Gray, Vanessa Mclean, Michael Crook and colleagues, with an educational cecilia from [employer]. Physical exam (Primary Care) Vital Signs: Last Vital Signs Pulse 87 08/07/24 15:26 BP 128/70 08/07/24 15:26 Pulse Ox 97 08/07/24 15:26 Oxygen Delivery Method Room Air 08/07/24 15:26 BMI result Body Mass Index 37.9 Tobacco/Smoking Status: Tobacco use Status Tobacco use date assessed 12/09/23 08/07/24 15:27 Patient Tobacco Use Status Never used Tobacco 08/07/24 15:27 e-Cigarette/Vaping Use Never Used 08/07/24 15:27 Thrive Assessment: Date of Thrive Assessment Date Thrive assessed 12/09/23 08/07/24 15:27 Const General: alert; No acute distress HENMT Other: Impacted cerumen bilateral Eyes Conjunctivae: conjunctivae normal Resp Auscultation: clear to auscultation bilaterally Cardio Rate: regular rate Rhythm: regular rhythm GI Inspection: Yes normal to inspection Extrem General: Yes normal to inspection and No edema Office Procedures Flu Questionnaire Does the patient have a severe egg allergy?: No Does the patient have severe life threatening allergies?: No Does the patient have a fever or illness today?: No Has the patient ever had Guillain-Orrtanna Syndrome?: No Has the patient ever had any past reaction to a flu shot?: No Immunizations Fluarix Triv [id number] (PF) 45 mcg (15 mcg x 3)/0.5 mL IM syringe Performing Provider: Karol Coronel MD [facility] Administered by: DARIUS Lucas on 08/07/24 16:12 Dose Route Admin Location Dispensed Lot Number Expiration Date [facility] License Distributor 0.5 mL IM Left Deltoid 0.5 mL [id number] 05/06/25 20228-322-87 [employer] VIS Given Date VIS Provided VIS Publication Date 08/07/24 Single Vaccine 21 Eligibility Eligibility Date Funding Source Not [facility] Eligible 08/07/24 Private Coding Level of Care Code Est Pt Level 4 (88613) Complex EM visit Add On G2211 Diagnoses Type 2 diabetes mellitus with hyperglycemia, with long-term current use of insulin E11.65; Z79.4 Diabetes mellitus emt intermediate insulin use: with senior living use Essential hypertension I10 Hypertension type: essential hypertension Gastroesophageal reflux disease without esophagitis K21.9 Esophagitis presence: without esophagitis Obesity (BMI 30-39.9) E66.9 Hypercholesterolemia E78.00 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 David Zhao Located at [facility] Code(s): E11.65 - Type 2 diabetes mellitus with hyperglycemia Category: Medical Qualifiers: Diabetes mellitus emt intermediate insulin use: with senior living use Qualified Code(s): E11.65 - Type 2 diabetes mellitus with hyperglycemia; Z79.4 - intermediate project manager (current) use of insulin Plan: Decrease the amount of carbohydrate intake, pasta, bread, rice and potatoes are all sugar and that is aside from all the sweet stuff, remember that fruits are good but they are Sweet also. Hemoglobin A1c goal of less than 6.5. Patient has been referred to Endocrinology but due to psychosocial circumstances problem with diabetes management. Patient is on Jardiance, NovoLog 70 30 mix has been placed on Mounjaro once a week.. Patient just started with Mounjaro and discussed to monitor the weight. If no side effects and in a month's time weight remains to be the same will need to increase the dose. (2) Hypertension: Code(s): I10 - Essential (primary) hypertension Category: Medical Qualifiers: Hypertension type: essential hypertension Qualified Code(s): I10 - Essential (primary) hypertension Plan: Continue with blood pressure medication. Decrease salt intake and exercise patient is on lisinopril 5 mg once a day will need blood work (3) GERD (gastroesophageal reflux disease): Code(s): K21.9 - Gastro-esophageal reflux disease without esophagitis Category: Medical Qualifiers: Esophagitis presence: without esophagitis Qualified Code(s): K21.9 - Gastro-esophageal reflux disease without esophagitis Plan: Avoid the foods that causes that usually spicy foods, tomato products, juices, coffee, soda and foods that your sensitive to. After eating do not lie down, allow 3-4 hours before in lie down. And keep the head of bed above 30 degrees to avoid the acid from going up. (4) Obesity (BMI 30-39.9): Code(s): E66.9 - Obesity, unspecified Category: Medical Plan: Diet and exercise (5) Hypercholesterolemia: Code(s): E78.00 - Pure hypercholesterolemia, unspecified Category: Medical Plan: Avoid fried foods, chicken skin, eggs, butter margarine, pastries and meat. Be it pork or beef they have a lot of cholesterol LDL goal of less than 100 and triglyceride of less than 150 on atorvastatin 10 mg once a day and fenofibrate patient advised get blood work (6) Schizophrenia: Comment: [facility] Code(s): F20.9 - Schizophrenia, unspecified Category: Medical Qualifiers: Schizophrenia type: disorganized schizophrenia Qualified Code(s): F20.1 - Disorganized schizophrenia Plan: Continue follow-up with psychiatry (7) Bilateral impacted cerumen: Code(s): H61.23 - Impacted cerumen, bilateral Category: Medical Plan: Advised patient that this will need ear irrigation. Orders: Orders Influenza [id number] Immunization Today Z23 - Encounter for immunization Medications: New Fluarix Triv [id number] (PF) (flu vacc [id number] 6mos up(PF)) 0.5 mL IM ONCE 0.5 mL 0RF NS Z23 - Encounter for immunization
[2024-08-07 15:26] VITALS: BP 128/70; PULSE 87; O2SAT 97; BMI 37.9
== END 2024-08-07 16:14 | disposition home or self-care (01) ==
PROVIDERS: PCP Internal Medicine; Visit Provider Internal Medicine
DX: E11.65 Type 2 diabetes mellitus with hyperglycemia (principal); Z79.4 Long term (current) use of insulin; I10 Essential (primary) hypertension; K21.9 Gastro-esophageal reflux disease without esophagitis; E66.9 Obesity, unspecified; E78.00 Pure hypercholesterolemia, unspecified; F20.1 Disorganized schizophrenia; H61.23 Impacted cerumen, bilateral; Z23 Encounter for immunization

== ENCOUNTER → 2024-08-07 15:23 | Outpatient (BNVA) | payer MEDICARE, MEDICAID, SELFPAY | PROVIDERS: PCP Internal Medicine; Visit Provider Internal Medicine | DX: Z23 Encounter for immunization (principal); E11.65 Type 2 diabetes mellitus with hyperglycemia; I10 Essential (primary) hypertension; Z79.4 Long term (current) use of insulin; E78.00 Pure hypercholesterolemia, unspecified; F20.9 Schizophrenia, unspecified | CPT/HCPCS: 90471; 90656; 99212 ==

== ENCOUNTER 2024-08-09 08:43 | Outpatient (REF) | payer MEDICARE, MEDICAID, SELFPAY ==
[2024-08-09 09:04] LABS: MANUAL DIFF FLAG NO
[2024-08-09 09:48] LABS: Basophils Percent Auto 0.7 % (0-2); Eosinophils Absolute Auto 0.1 X10*3/uL (0.0-0.4); Eosinophils Percent Auto 1.4 % (0-4); Hematocrit 40.6 % (42.0-52.0); Hemoglobin 12.7 g/dl (14.0-18.0); Imm Gran Abs Auto 0.01 X10*3/uL (0.00-0.03); Imm Gran Pct Auto 0.2 % (0.0-0.4); Lymphocytes Absolute Auto 1.7 X10*3/uL (1.2-4.9); Mean Corpuscular HGB Conc 31.3 g/dl (31.0-36.0); Mean Corpuscular Hemoglobin 27.3 pg (27.0-33.0); Mean Corpuscular Volume 87.1 fL (80.0-98.0); Mean Platelet Volume 12.1 fL (9.4-12.4); Monocytes Absolute Auto 0.4 X10*3/uL (0.1-1.2); Neutrophils Absolute Auto 3.5 x10*3/uL (2.0-8.3); Neutrophils Percent Auto 61.7 % (45-73); Platelet Count 230 X10*3/uL (160-400); Red Blood Count 4.66 X10*6/uL (4.60-5.80); Red Cell Distribution Width 14.7 % (11.0-16.0); White Blood Count 5.7 X10*3/uL (4.8-10.8)
== END 2024-08-09 08:44 | disposition home or self-care (01) ==
LOC: HO.LAB 08:43
PROVIDERS: Absent Provider Clinical Nurse Specialist Psychiatric/Mental Health, Adult; PCP Internal Medicine; Visit Provider Internal Medicine
DX: Z79.899 Other long term (current) drug therapy (principal)
CPT/HCPCS: 36415; 85025

== ENCOUNTER 2024-08-24 09:56 | Outpatient (AMB) | payer MEDICARE, MEDICAID, SELFPAY ==
--- NOTE | 2024-08-24 10:00 | MHC.OFFVIS ---
Vital Signs 08/24/24 10:03 Height 5 ft 11 in Weight 271 lb 13.279 oz BMI 37.9 BP 108/68 Blood Pressure Location Rt brachial Position Sitting Pulse 99 Pulse Source Pulse Oximeter Intake Visit Reasons: DM Intake Note: Patient present today to follow up on Type 2 Diabetes Mellitus, last seen by Dr. Michael on 07/10/24. Last Diabetic Eye exam: February or March of 2024. Last Podiatry Visit: April 2024 Random Glucose: 153 mg/dl HgA1C: 8.2% 07/10/24 Banquet Coordinator Required: No Accompanied by: Out Reach Worker Allergies No Known Allergies Allergy (Unknown, Verified 08/24/24 10:04) NOT APPLICABLE HPI Comments Details: Patient is 54-year-old male with DM type 2 diagnosed in 2014 presenting for diabetic management. He is here with his CHD worker. He needs a referral to a new workers compensation administrator for foot care. 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 Diabetes medications: Novolog Mix 70/30 75 units before breakfast and 50 units before dinner. Mounjaro 5 mg Qwkly metformin 1000 mg twice a day, Jardiance 25 mg daily. Glucometer could not be downloaded today, but his average glucose is 247 on his meter, and he is experiencing hyperglycemia in the morning and evening. No hypoglycemia. He checks blood sugar twice a day. Ophthalmology evaluation: Up-to-date, no retinopathy. ROS: Constitutional: No unexplained weight loss, fever, chills, fatigue or night sweats. Eyes: No vision changes, blurry vision, double vision, eye pain, eye redness, eye discharge. ENT: No hearing loss, sneezing, congestion, runny nose or sore throat. Respiratory: No shortness of breath, cough or sputum production. Cardiovascular: No chest pain, chest pressure or chest discomfort. No palpitations or pedal edema. Gastrointestinal: No anorexia, nausea, vomiting or diarrhea. No abdominal pain or blood in stool. Genitourinary: No dysuria, hematuria, urinary frequency. Neurologic: No headache, dizziness, syncope, unilateral weakness, ataxia, numbness or tingling in the extremities. Musculoskeletal: No muscle pain, back pain, joint pain or swelling. Hematologic/Lymphatics: No bleeding or bruising. No painful lymph nodes. Skin: No rash or itching. Endocrine: No cold or heat intolerance. No polyuria or polydipsia. Psychiatric: No depression or anxiety. No SI/HI. Physical exam: Constitutional: Alert, in no distress. Neck: Supple, Full range of motion. No lymphadenopathy. Respiratory: Clear to auscultation. Cardiovascular: S1 S2 regular. No murmurs. Right foot: Warm and well perfused. No clubbing, cyanosis or edema. DP pulse 2+. Toenails are longer. Left foot: Warm and well perfused. No clubbing, cyanosis or edema. DP pulse 2+. 1 cm healed abrasion on top of the left foot. No erythema or swelling or warmth. No open wound. Toenails are longer. 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 Mother No problems noted. Social History Housing: Assisted Living Facility Alcohol intake: never Patient Tobacco Use Status: Never used Tobacco e-Cigarette/Vaping Use: Never Used Second Hand Smoke Exposure: No service: No Current occupational status: disabled Cognitive needs: Yes Hearing needs: No Vision needs: No Physical Exam Vital Signs: Last Vital Signs Pulse 99 08/24/24 10:03 BP 108/68 08/24/24 10:03 BMI result Body Mass Index 37.9 Results Reviewed Results Reviewed: Laboratory Last Values Glucose (Clinic) 153 mg/dL (60-115) H 08/24/24 10:10 Assessment & Plan Assessment & Plan (1) Type 2 diabetes mellitus with hyperglycemia: Code(s): E11.65 - Type 2 diabetes mellitus with hyperglycemia Category: Medical Qualifiers: Diabetes mellitus halfway insulin use: with halfway use Qualified Code(s): E11.65 - Type 2 diabetes mellitus with hyperglycemia; Z79.4 - halfway (current) use of insulin Plan: In summary this is a 54-year-old male with type 2 diabetes with no known microvascular or macrovascular complications. He has lab orders in the EMR to have completed. Increase Mounjaro to 7.5 mg weekly. His glycemic control and compliance are limited by psychosocial circumstances and inability to administer more than 2 injections per day. He would benefit from a CGM but is not able to handle this in the current living environment. Continue metformin 1000 mg twice daily, Jardiance 25 mg daily and NovoLog mix 70-30 75 units before breakfast and 50 units before dinner. I placed a new referral to podiatry for diabetic foot care. Follow up in 4 weeks for type 2 diabetes. Orders: Referrals Podiatry Referral E11.65 - Type 2 diabetes mellitus with hyperglycemia, Z79.4 - halfway (current) use of insulin Medications: New tirzepatide (Mounjaro) 7.5 mg (0.5 mL) subcut QWEEK 2 mL 0RF Discontinued tirzepatide (Mounjaro) Discontinued Reason: Doctor's Order 5 mg (0.5 mL) subcut QWEEK 2 mL 5RF Coding Level of Care Code Est Pt Level 4 (10741) Complex EM visit Add On G2211 Diagnoses Type 2 diabetes mellitus with hyperglycemia, with long-term current use of insulin E11.65; Z79.4 Diabetes mellitus halfway insulin use: with halfway use
[2024-08-24 10:03] VITALS: BP 108/68; PULSE 99; BMI 37.9
[2024-08-24 10:15] LABS: Glucose, Whole Blood 153 mg/dL (60-115)
== END 2024-08-24 10:37 | disposition home or self-care (01) ==
PROVIDERS: PCP Internal Medicine; Visit Provider Physician Assistant Medical
DX: E11.65 Type 2 diabetes mellitus with hyperglycemia (principal); Z79.4 Long term (current) use of insulin

== ENCOUNTER → 2024-08-24 09:56 | Outpatient (BNVA) | payer MEDICARE, MEDICAID, SELFPAY | PROVIDERS: PCP Internal Medicine; Visit Provider Physician Assistant Medical | DX: E11.65 Type 2 diabetes mellitus with hyperglycemia (principal); E11.21 Type 2 diabetes mellitus with diabetic nephropathy; Z79.4 Long term (current) use of insulin | CPT/HCPCS: 82947; 99212 ==

== ENCOUNTER 2024-09-12 14:16 | Outpatient (REF) | payer MEDICARE, MEDICAID, SELFPAY ==
[2024-09-12 14:28] LABS: MANUAL DIFF FLAG NO
[2024-09-12 14:39] LABS: Basophils Absolute Auto 0.1 X10*3/uL (0.0-0.2); Basophils Percent Auto 0.7 % (0-2); Eosinophils Absolute Auto 0.1 X10*3/uL (0.0-0.4); Eosinophils Percent Auto 1.7 % (0-4); Hematocrit 39.1 % (42.0-52.0); Hemoglobin 12.6 g/dl (14.0-18.0); Imm Gran Abs Auto 0.02 X10*3/uL (0.00-0.03); Imm Gran Pct Auto 0.3 % (0.0-0.4); Lymphocytes Percent Auto 39.2 % (20-40); Mean Corpuscular HGB Conc 32.2 g/dl (31.0-36.0); Mean Corpuscular Hemoglobin 27.2 pg (27.0-33.0); Mean Corpuscular Volume 84.4 fL (80.0-98.0); Mean Platelet Volume 11.5 fL (9.4-12.4); Monocytes Absolute Auto 0.5 X10*3/uL (0.1-1.2); Monocytes Percent Auto 6.7 % (2-11); Neutrophils Absolute Auto 3.9 x10*3/uL (2.0-8.3); Neutrophils Percent Auto 51.4 % (45-73); Platelet Count 253 X10*3/uL (160-400); Red Blood Count 4.63 X10*6/uL (4.60-5.80); White Blood Count 7.6 X10*3/uL (4.8-10.8)
== END 2024-09-12 14:17 | disposition home or self-care (01) ==
LOC: HO.LABR 14:16
PROVIDERS: PCP Internal Medicine; Visit Provider Clinical Nurse Specialist Psychiatric/Mental Health, Adult
DX: Z79.899 Other long term (current) drug therapy (principal)
CPT/HCPCS: 36415; 85025

== ENCOUNTER 2024-10-02 11:08 | Outpatient (AMB) | payer MEDICARE, MEDICAID, SELFPAY ==
--- NOTE | 2024-10-02 11:09 | MHC.OFFVIS ---
Vital Signs 10/02/24 11:13 Height 5 ft 11 in Weight 255 lb 15.307 oz BMI 35.7 BP 114/62 Blood Pressure Location Rt brachial Position Sitting Pulse 90 Pulse Source Pulse Oximeter Intake Visit Reasons: Type II DM Intake Note: Patient present today to follow up on Type 2 Diabetes Mellitus. 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 Needs new referral. Random Glucose: 247 mg/dl HgA1C: 8.2% 07/10/24 Custom Feed Mill Operator Helper Required: No Accompanied by: CHD Worker Allergies No Known Allergies Allergy (Unknown, Verified 10/02/24 11:16) NOT APPLICABLE HPI Comments Details: This is a 54-year-old male with a past medical history of type 2 diabetes diagnosed in 2014 presenting for diabetic management. He is here with a CHD worker. 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 Diabetes medications: Novolog Mix 70/30 75 units before breakfast and 50 units before dinner. Mounjaro 7.5 mg Qwkly, metformin 1000 mg twice a day, Jardiance 25 mg daily. His weight is very close to what it was in December after a period of weight gain. Highest weight was 271 lb this year. Today he weighs 255 lb. Random Glucose: 247 mg/dl HgA1C: 8.2% 07/10/24 Glucometer could not be downloaded today, but his average glucose is 233 on his meter, and he is experiencing hyperglycemia in the morning and evening, but readings are higher in the evening. No hypoglycemia. Glucose is checked twice per day by his nurse who also administers medications. Ophthalmology evaluation: Up-to-date, no retinopathy. Referred to podiatry-this has been processed so just waiting on scheduling. ROS: Constitutional: No fevers, chills or unexplained weight loss Respiratory: No shortness of breath Cardiovascular: No chest pain Gastrointestinal: No anorexia, nausea, vomiting or diarrhea. Occasional abdominal pain. Genitourinary: No dysuria, hematuria, urinary frequency. Endocrine: No polyuria or polydipsia. Physical exam: Constitutional: Alert, in no distress. Neck: Supple, Full range of motion. No lymphadenopathy. Respiratory: Clear to auscultation. Cardiovascular: S1 S2 regular. No murmurs. 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 Mother No problems noted. Social History Housing: Assisted Living Facility Alcohol intake: never Patient Tobacco Use Status: Never used Tobacco e-Cigarette/Vaping Use: Never Used Second Hand Smoke Exposure: No service: No Current occupational status: disabled Cognitive needs: Yes Hearing needs: No Vision needs: No Physical Exam Vital Signs: BMI result Body Mass Index 35.7 Results Reviewed Results Reviewed: Laboratory Tests 08/26/22 07/28/23 07/28/23 12:21 14:55 14:59 Creatinine 0.78 Estimated GFR > 60 Hgb A1c (Clinic) Triglycerides 263 Cholesterol 142 LDL Cholesterol, Calc 69 HDL Cholesterol 21 Urine Creatinine 28.40 Urine Microalbumin < 5.0 Microalb/Creat Ratio TNP 07/10/24 14:47 Creatinine Estimated GFR Hgb A1c (Clinic) 8.2 H Triglycerides Cholesterol LDL Cholesterol, Calc HDL Cholesterol Urine Creatinine Urine Microalbumin Microalb/Creat Ratio Assessment & Plan Assessment & Plan (1) Type 2 diabetes mellitus with hyperglycemia: Code(s): E11.65 - Type 2 diabetes mellitus with hyperglycemia Category: Medical Qualifiers: Diabetes mellitus detention insulin use: with detention use Qualified Code(s): E11.65 - Type 2 diabetes mellitus with hyperglycemia; Z79.4 - [facility] (current) use of insulin Plan: In summary this is a 54-year-old male with uncontrolled type 2 diabetes with no known microvascular or macrovascular complications. He has lab orders in the EMR to have completed. Increase Mounjaro to 10 mg weekly. His glycemic control and compliance are limited by psychosocial circumstances and inability to administer more than 2 injections per day. He would benefit from a CGM but is not able to handle this in the current living environment. Continue metformin 1000 mg twice daily, Jardiance 25 mg daily and NovoLog mix 70-30 75 units before breakfast and 50 units before dinner. We will likely need to increase NovoLog mix evening dosage at his follow up appointment. Follow up in 4 weeks for type 2 diabetes. Medications: New tirzepatide (Mounjaro) 10 mg (0.5 mL) subcut QWEEK 2 mL 3RF Refilled empagliflozin (Jardiance) 25 mg PO DAILY 30 tabs 5RF Discontinued tirzepatide (Mounjaro) Discontinued Reason: Doctor's Order 7.5 mg (0.5 mL) subcut QWEEK 2 mL 0RF Coding Level of Care Code Est Pt Level 4 (99438) Complex EM visit Add On G2211 Diagnoses Type 2 diabetes mellitus with hyperglycemia, with long-term current use of insulin E11.65; Z79.4 Diabetes mellitus terminal manager insulin use: with detention use
[2024-10-02 11:13] VITALS: BP 114/62; PULSE 90; BMI 35.7
[2024-10-02 11:26] LABS: Glucose, Whole Blood 247 mg/dL (60-115)
== END 2024-10-02 11:46 | disposition home or self-care (01) ==
PROVIDERS: PCP Internal Medicine; Visit Provider Physician Assistant Medical
DX: E11.65 Type 2 diabetes mellitus with hyperglycemia (principal); Z79.4 Long term (current) use of insulin

== ENCOUNTER → 2024-10-02 11:08 | Outpatient (BNVA) | payer MEDICARE, MEDICAID, SELFPAY | PROVIDERS: PCP Internal Medicine; Visit Provider Physician Assistant Medical | DX: E11.65 Type 2 diabetes mellitus with hyperglycemia (principal); E78.5 Hyperlipidemia, unspecified; E55.9 Vitamin D deficiency, unspecified; I10 Essential (primary) hypertension; Z79.4 Long term (current) use of insulin | CPT/HCPCS: 82947; 99212 ==

== ENCOUNTER 2024-10-11 14:38 | Outpatient (REF) | payer MEDICARE, MEDICAID, SELFPAY ==
[2024-10-11 15:00] LABS: MANUAL DIFF FLAG NO
[2024-10-11 15:38] LABS: Basophils Percent Auto 0.5 % (0-2); Eosinophils Absolute Auto 0.1 X10*3/uL (0.0-0.4); Eosinophils Percent Auto 1.3 % (0-4); Hematocrit 39.4 % (42.0-52.0); Hemoglobin 12.5 g/dl (14.0-18.0); Imm Gran Abs Auto 0.02 X10*3/uL (0.00-0.03); Imm Gran Pct Auto 0.3 % (0.0-0.4); Immature Retic Fraction 20.3 % (2.3-13.4); Lymphocytes Absolute Auto 2.4 X10*3/uL (1.2-4.9); Lymphocytes Percent Auto 38.7 % (20-40); Mean Corpuscular HGB Conc 31.7 g/dl (31.0-36.0); Mean Corpuscular Hemoglobin 26.9 pg (27.0-33.0); Mean Corpuscular Volume 84.7 fL (80.0-98.0); Mean Platelet Volume 12.1 fL (9.4-12.4); Monocytes Absolute Auto 0.5 X10*3/uL (0.1-1.2); Neutrophils Absolute Auto 3.2 x10*3/uL (2.0-8.3); Neutrophils Percent Auto 51.2 % (45-73); Platelet Count 210 X10*3/uL (160-400); Red Blood Count 4.65 X10*6/uL (4.60-5.80); Red Cell Distribution Width 15.3 % (11.0-16.0); Retic HGB Equivalent 29.2 pg (30.0-35.0); Reticulocyte Percent 1.8 % (0.5-1.8); Reticulocytes Absolute 0.083 X10*6/uL (0.026-0.095); White Blood Count 6.2 X10*3/uL (4.8-10.8)
[2024-10-11 16:01] LABS: Creatinine Urine 21.13 mg/dL; Microalbumin Urine < 5.0 mg/L
[2024-10-11 16:34] LABS: Prostate Specific Antigen Scr 1.36 ng/mL (<0.05-4.0); Vitamin B12 538 pg/mL (200-900)
[2024-10-11 16:49] LABS: Alanine Aminotransferase 50 U/L (0-40); Albumin Level 4.4 g/dL (3.5-5.0); Alkaline Phosphatase 42 U/L (39-117); Anion Gap 11 (12-20); Aspartate Amino Transferase 25 U/L (5-37); Bilirubin Total 0.3 mg/dL (0.0-1.0); Blood Urea Nitrogen 17 mg/dL (9-16); Calcium 9.2 mg/dL (8.4-10.2); Carbon Dioxide 27 mmol/L (22-29); Chloride 104 mmol/L (96-108); Cholesterol 129 mg/dL (<200); Estimated Glomerular Filt Rate > 60; Glucose Random 127 mg/dL (60-115); HDL Cholesterol 21 mg/dL (>40); Iron 86 mcg/dL (45-160); LDL Cholesterol Calculated 55 mg/dL (<100); Percent Iron Saturation 22 % (15-50); Potassium 3.7 mmol/L (3.3-5.1); Sodium 138 mmol/L (135-145); Total Iron Binding Capacity 386 mcg/dL (228-428); Total Protein 7.8 g/dL (6.5-8.0); Triglycerides 265 mg/dL (<150); Unsaturated Iron Binding 300 ug/dL
[2024-10-11 17:08] LABS: Ferritin 104 ng/mL (20-250); Free T4 (Free Thyroxine) 1.07 ng/dL (0.71-1.85); Thyroid Stimulating Hormone 1.28 uIU/mL (0.32-4.0)
== END 2024-10-11 14:39 | disposition home or self-care (01) ==
LOC: HO.LAB 14:38
PROVIDERS: PCP Internal Medicine; Visit Provider Clinical Nurse Specialist Psychiatric/Mental Health, Adult
DX: E11.65 Type 2 diabetes mellitus with hyperglycemia (principal); Z79.4 Long term (current) use of insulin; E78.00 Pure hypercholesterolemia, unspecified; Z12.5 Encounter for screening for malignant neoplasm of prostate
CPT/HCPCS: 36415; 80053; 80061; 82043; 82570; 82607; 82728; 82746; 83540; 84153; 84439; 84443; 85025; 85045

== ENCOUNTER 2024-11-09 10:28 | Outpatient (REF) | payer MEDICARE, MEDICAID, SELFPAY ==
[2024-11-09 11:40] LABS: MANUAL DIFF FLAG NO
[2024-11-09 12:30] LABS: Basophils Absolute Auto 0.1 X10*3/uL (0.0-0.2); Basophils Percent Auto 0.8 % (0-2); Eosinophils Absolute Auto 0.1 X10*3/uL (0.0-0.4); Eosinophils Percent Auto 1.5 % (0-4); Hematocrit 38.9 % (42.0-52.0); Hemoglobin 12.2 g/dl (14.0-18.0); Imm Gran Abs Auto 0.02 X10*3/uL (0.00-0.03); Imm Gran Pct Auto 0.3 % (0.0-0.4); Lymphocytes Absolute Auto 2.1 X10*3/uL (1.2-4.9); Lymphocytes Percent Auto 28.2 % (20-40); Mean Corpuscular HGB Conc 31.4 g/dl (31.0-36.0); Mean Corpuscular Hemoglobin 26.8 pg (27.0-33.0); Mean Corpuscular Volume 85.5 fL (80.0-98.0); Mean Platelet Volume 12.1 fL (9.4-12.4); Monocytes Absolute Auto 0.6 X10*3/uL (0.1-1.2); Monocytes Percent Auto 7.7 % (2-11); Neutrophils Absolute Auto 4.5 x10*3/uL (2.0-8.3); Neutrophils Percent Auto 61.5 % (45-73); Platelet Count 233 X10*3/uL (160-400); Red Blood Count 4.55 X10*6/uL (4.60-5.80); Red Cell Distribution Width 15.2 % (11.0-16.0); White Blood Count 7.4 X10*3/uL (4.8-10.8)
== END 2024-11-09 10:29 | disposition home or self-care (01) ==
LOC: HO.LABR 10:28
PROVIDERS: PCP Internal Medicine; Visit Provider Physician Assistant Medical
DX: Z79.899 Other long term (current) drug therapy (principal); E11.65 Type 2 diabetes mellitus with hyperglycemia; Z79.4 Long term (current) use of insulin
CPT/HCPCS: 36415; 82947; 83036; 85025; 99212

== ENCOUNTER 2024-11-09 10:28 | Outpatient (AMB) | payer MEDICARE, MEDICAID, SELFPAY ==
--- NOTE | 2024-11-09 10:31 | A.OFFVIS_ITS ---
Vital Signs 11/09/24 10:35 Height 5 ft 11 in Weight 263 lb 14.293 oz BMI 36.8 BP 108/64 Blood Pressure Location Rt brachial Position Sitting Pulse 92 Pulse Source Pulse Oximeter Intake Visit Reasons: Type II DM Intake Note: Patient present today to follow up on Type 2 Diabetes Mellitus. 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 He is here with a CHD worker, Jane. 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 Diabetes medications: Novolog Mix 70/30 75 units before breakfast and 50 units before dinner. Mounjaro 10 mg Qwkly, metformin 1000 mg twice a day, Jardiance 25 mg daily. His meals are provided to him. He eats rice, bread, sandwiches, oreos. He drinks crystal light. HgA1C: 8.5% 11/09/24. Reviewed glucometer download In target range 11% Average glucose 271 mg/dL 1.9 readings per day Highest sugar for 12 mg/dL Lowest sugar 162 mg/dL No hypoglycemia Glucose is checked twice per day by [facility] who also administers medications. Ophthalmology evaluation: Up-to-date, no retinopathy. Referred to podiatry-provided with contact number to schedule appointment. ROS: Constitutional: No fevers, chills or unexplained weight loss Respiratory: No shortness of breath Cardiovascular: No chest pain Gastrointestinal: No anorexia, nausea, vomiting or diarrhea. No abdominal pain. Genitourinary: No dysuria, hematuria, urinary frequency. Endocrine: No polyuria or polydipsia. Physical exam: Constitutional: Alert, in no distress. Neck: Supple, Full range of motion. No lymphadenopathy. Respiratory: Clear to auscultation. Cardiovascular: S1 S2 regular. No murmurs. Feet: No open wounds. Toenails are long. 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 Mother No problems noted. Social History Housing: Assisted Living Facility Alcohol intake: never Patient Tobacco Use Status: Never used Tobacco e-Cigarette/Vaping Use: Never Used Second Hand Smoke Exposure: No service: No Current occupational status: disabled Cognitive needs: Yes Hearing needs: No Vision needs: No Physical Exam Vital Signs: Last Vital Signs Pulse 92 11/09/24 10:35 BP 108/64 11/09/24 10:35 BMI result Body Mass Index 36.8 Results AMB Hemoglobin A1c AMB Hemoglobin A1c 8.5 % Last Edit by DARIUS Kelley on 11/09/24 10:53 Results Reviewed Results Reviewed: Laboratory Last Values Glucose (Clinic) 269 mg/dL (60-115) H 11/09/24 10:43 Hgb A1c (Clinic) 8.5 % (4.0-6.0) H 11/09/24 10:46 Laboratory Tests 08/26/22 07/28/23 07/28/23 12:21 14:55 14:59 Creatinine 0.78 Estimated GFR > 60 Hgb A1c (Clinic) Triglycerides 263 Cholesterol 142 LDL Cholesterol, Calc 69 HDL Cholesterol 21 Urine Creatinine 28.40 Urine Microalbumin < 5.0 Microalb/Creat Ratio TNP 07/10/24 14:47 Creatinine Estimated GFR Hgb A1c (Clinic) 8.2 H Triglycerides Cholesterol LDL Cholesterol, Calc HDL Cholesterol Urine Creatinine Urine Microalbumin Microalb/Creat Ratio Assessment & Plan Assessment & Plan (1) Type 2 diabetes mellitus with hyperglycemia: Code(s): E11.65 - Type 2 diabetes mellitus with hyperglycemia Category: Medical Qualifiers: 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 He has lab orders in the EMR to have completed. Discussed with Dr. Garcia. Increase Mounjaro to 12.5 mg weekly. Continue metformin 1000 mg twice daily, Jardiance 25 mg daily and increase NovoLog mix 70-30 from 75 units to 80 units before breakfast and from 50 to 55 units before dinner. His glycemic control and compliance are limited by psychosocial circumstances and inability to administer more than 2 injections per day ([facility]). He would benefit from a CGM but is not able to handle this in the current living environment. Follow up in 4 weeks for type 2 diabetes with EXPLOSIVES HANDLER or MD. Orders: Orders AMB Hemoglobin A1c Today E11.65 - Type 2 diabetes mellitus with hyperglycemia, Z79.4 - shelter (current) use of insulin Medications: New tirzepatide (Mounjaro) 12.5 mg (0.5 mL) subcut QWEEK 2 mL 2RF Changed From Novolog Mix 70-30FlexPen U-100 100 unit/mL (70-30) (insulin asp prt-insulin aspart) 75 units before breakfast and 50 units before dinner subcutaneously 2 t imes a day; 30 days 60 mL 3RF NS To Novolog Mix 70-30FlexPen U-100 100 unit/mL (70-30) (insulin asp prt-insulin aspart) 80 units before breakfast and 55 units before dinner subcutaneously 2 times a day; 60 mL 3RF 30 days NS Discontinued tirzepatide (Mounjaro) Discontinued Reason: Doctor's Order 10 mg (0.5 mL) subcut QWEEK 2 mL 3RF Patient Instructions: [facility] [address] [place] [id number] Call to schedule appointment Coding Level of Care Code Est Pt Level 4 (45242) Complex EM visit Add On G2211 Diagnoses Type 2 diabetes mellitus with hyperglycemia, with long-term current use of insulin E11.65; Z79.4 Diabetes mellitus 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
[2024-11-09 10:35] VITALS: BP 108/64; PULSE 92; BMI 36.8
[2024-11-09 10:48] LABS: Glucose, Whole Blood 269 mg/dL (60-115)
== END 2024-11-09 11:17 | disposition home or self-care (01) ==
PROVIDERS: PCP Internal Medicine; Visit Provider Physician Assistant Medical
DX: E11.65 Type 2 diabetes mellitus with hyperglycemia (principal); Z79.4 Long term (current) use of insulin

== ENCOUNTER 2024-11-27 09:51 | Outpatient (AMB) | payer MEDICARE, MEDICAID, SELFPAY ==
--- NOTE | 2024-11-27 09:54 | A.OFFPC_ITS ---
Vital Signs 11/27/24 09:57 Height 5 ft 11 in Weight 266 lb 6 oz BMI 37.1 BP 118/68 Blood Pressure Location Lt brachial Position Sitting Pulse 92 Pulse Source Pulse Oximeter Temp 96.9 F Temp Source Skin Pulse Oximetry (%) 96 Oxygen Delivery Method Room Air Intake Visit Reasons: Diabetes mellitus hypercholesterolemia obesity Intake Note: Patient is here to follow up on DM, Hypercholesterolemia, Obesity. Multimedia Technician Required: No Belt Line Feeder: Present Accompanied by: Out Reach Staff Allergies No Known Allergies Allergy (Unknown, Verified 11/27/24 09:56) NOT APPLICABLE Tobacco use date assessed: 11/27/24 Dental Screening Dental Screen Date: 11/27/24 Did you have a dental visit in the last 12 months?: Yes Did you have a dental problem in the last 6 months where you did not have access to dental care?: No Was dental information given to patient?: Patient has dentist HPI Diabetes mellitus hypercholesterolemia obesity HPI Details The patient is a 54-year-old male presenting with a follow-up for the management of Type 2 Diabetes Mellitus and hyperlipidemia. The patient was recently seen by an trolley wire installer on November 09, where it was noted that his HbA1c and weight were elevated, leading to an increased dosage of Mounjaro. The patient is currently independent in living but needs to control his diet better to manage his blood glucose levels effectively. His current triglyceride level is 265 mg/dL, with a recommendation noted for it to be below 150 mg/dL while on fenofibrate. The patient reports limited physical activity and is encouraged to incorporate at least 15 minutes of exercise daily. There is also a concern about his calorie intake contributing to poor diabetes control. He attends a day program where activities are available, but he needs increased participation in structured exercise. The patient acknowledges difficulty in dietary choices and accepts the need for better dietary practices. Past medical history includes Type 2 Diabetes with a risk of diabetic retinopathy; regular eye exams are necessary due to potential microvascular complications from poor glucose control. A Cologuard test was discussed previously, with the patient admitting to not having completed it yet; plans to obtain a new test kit are in place. The patient has received the flu vaccine and is up to date with other vaccines, including tetanus and pneumococcal vaccines. He is reminded of preventive measures such as hand hygiene to avoid infections, especially during the ongoing COVID-19 and RSV prevalence. 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 Mother No problems noted. Social History Housing: Assisted Living Facility Alcohol intake: never Patient Tobacco Use Status: Never used Tobacco e-Cigarette/Vaping Use: Never Used Second Hand Smoke Exposure: No service: No Current occupational status: disabled Cognitive needs: Yes Hearing needs: No Vision needs: No Questionnaire PHQ-9 Over the last 2 weeks, how often have you been bothered by any of the following problems? 1. Little interest or pleasure in doing things: not at all 2. Feeling down, depressed, or hopeless: not at all 3. Trouble falling or staying asleep, or sleeping too much: not at all 4. Feeling tired or having little energy: not at all 5. Poor appetite or overeating: not at all 6. Feeling bad about yourself - or that you are a failure or have let yourself or your family down: not at all 7. Trouble concentrating on things, such as reading the newspaper or watching television: not at all 8. Moving or speaking so slowly that other people could have noticed. Or the opposite - being so fidgety or restless that you have been moving around a lot more than usual: not at all 9. Thoughts that you would be better off or of hurting yourself in some way: not at all Total score: 0 Depression Screening Interpretation: Negative Depression Screening Done: Yes Source: Developed by Drs. Ollie Gray, Vanessa Mclean, Michael Crook and colleagues, with an educational cecilia from [employer]. Thrive Questionnaire Date Thrive assessed: 11/27/24 I am a: Patient What is your living situation today?: I have a steady place to live Within the past 12 months, did the food you bought not last and you didn't have the money to get more?: Never true Within the past 12 months, did you worry whether your food would run out before you got money to buy more?: Never true Do you have trouble paying for medicines?: No Do you have trouble getting transportation to medical appointments?: No Do you have trouble paying your heating and electricity bill?: No Do you have trouble taking care of your child, family member or friend?: No Do you have trouble with day-to-day activities such as bathing, preparing meals, shopping, managing finances, etc.?: No Are you currently unemployed and looking for a job?: No Please select the resources that you would like help with: None Currently or been in a relationship where the following occur: No concerns reported THRIVE Score: 0 AUDIT C Alcohol Use Questionnaire (AUDIT-C) 1. How often do you have a drink containing alcohol?: Never Total Score: 0 JC-7 AMB Questionnaire JC-7 Date JC - 7 assessed: 11/27/24 Feeling nervous, anxious, or on edge: 0 = Not at all Not being able to stop or control worryin = Not at all Worrying too much about different things: 0 = Not at all Trouble relaxin = Not at all Being so restless that it is hard to sit still: 0 = Not at all Becoming easily annoyed or irritable: 0 = Not at all Feeling afraid as if something awful might happen: 0 = Not at all Total JC-7 score (0-4 normal; 5-9 mild; 10-14 moderate; 15-21 severe): 0 Source: Developed by Drs. Ollie Gray, Vanessa Mclean, Michael Crook and colleagues, with an educational cecilia from [employer]. Physical exam (Primary Care) Vital Signs: Last Vital Signs Temp 96.9 F 11/27/24 09:57 Pulse 92 11/27/24 09:57 BP 118/68 11/27/24 09:57 Pulse Ox 96 11/27/24 09:57 Oxygen Delivery Method Room Air 11/27/24 09:57 BMI result Body Mass Index 37.1 Tobacco/Smoking Status: Tobacco use Status Tobacco use date assessed 11/27/24 11/27/24 10:03 Patient Tobacco Use Status Never used Tobacco 11/27/24 10:03 e-Cigarette/Vaping Use Never Used 11/27/24 10:03 PHQ-9: PHQ-9 Score PHQ-9: Total score 0 11/27/24 10:03 Depression Screening Interpretation: Negative Thrive Assessment: Date of Thrive Assessment Date Thrive assessed 11/27/24 11/27/24 10:03 Currently or been in a relationship where the following occur: No concerns reported Const General: alert; No acute distress Eyes Conjunctivae: conjunctivae normal Resp Auscultation: clear to auscultation bilaterally Cardio Rate: regular rate Rhythm: regular rhythm GI Inspection: Yes normal to inspection Extrem General: Yes normal to inspection and No edema Coding Level of Care Code Est Pt Level 4 (35327) Complex EM visit Add On G2211 Diagnoses Type 2 diabetes mellitus with hyperglycemia, with long-term current use of insulin E11.65; Z79.4 Diabetes mellitus long term care social worker insulin use: with mcfp use Essential hypertension I10 Hypertension type: essential hypertension Gastroesophageal reflux disease without esophagitis K21.9 Esophagitis presence: without esophagitis Obesity (BMI 30-39.9) E66.9 Fatty liver K76.0 Hypercholesterolemia E78.00 Colon cancer screening Z12.11 Assessment & Plan Assessment & Plan (1) Type 2 diabetes mellitus with hyperglycemia: Code(s): E11.65 - Type 2 diabetes mellitus with hyperglycemia Category: Medical Qualifiers: Diabetes mellitus long term care social worker insulin use: with mcfp use Qualified Code(s): E11.65 - Type 2 diabetes mellitus with hyperglycemia; Z79.4 - 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 (2) Hypertension: Code(s): I10 - Essential (primary) hypertension Category: Medical Qualifiers: Hypertension type: essential hypertension Qualified Code(s): I10 - Essential (primary) hypertension (3) GERD (gastroesophageal reflux disease): Code(s): K21.9 - Gastro-esophageal reflux disease without esophagitis Category: Medical Qualifiers: Esophagitis presence: without esophagitis Qualified Code(s): K21.9 - Gastro-esophageal reflux disease without esophagitis (4) Obesity (BMI 30-39.9): Code(s): E66.9 - Obesity, unspecified Category: Medical (5) Fatty liver: Code(s): K76.0 - Fatty (change of) liver, not elsewhere classified Category: Medical (6) Hypercholesterolemia: Code(s): E78.00 - Pure hypercholesterolemia, unspecified Category: Medical (7) Colon cancer screening: Code(s): Z12.11 - Encounter for screening for malignant neoplasm of colon Category: Medical Plan - Monitor and manage Type 2 Diabetes Mellitus with adjustment in medications increased dosage of Mounjaro). Educate the patient on dietary modifications and exercise to improve glycemic control. Stress the importance of regular blood glucose monitoring. - Address hypertriglyceridemia by reviewing the efficacy of fenofibrate and continuing lifestyle interventions, including diet and exercise adjustments. - Emphasize the need for weight reduction through caloric restriction and increased physical activity, with specific targets for exercise adherence. - Ensure an annual ophthalmologic examination to monitor and manage any prog ression toward diabetic retinopathy. - Reorder and encourage completion of Cologuard testing for colorectal cancer screening. - Reinforce vaccination status and preventive measures to reduce infection risk. Orders: Referrals Cologuard Test Z12.11 - Encounter for screening for malignant neoplasm of colon, Z12.12 - Encounter for screening for malignant neoplasm of rectum
[2024-11-27 09:57] VITALS: BP 118/68; PULSE 92; TEMP 36.1; O2SAT 96; BMI 37.1
--- OUTSIDE RECORDS SUMMARY | 2024-11-27 11:00 | XMS_ITS | Encounter Summary ---
Author Organization [facility] Address [address] [place] [address] Care Team Providers Care Supervisor Fabrication Name Role Phone Karol Coronel MD Primary Care Provider [phone] Encounter Details Date Type Department Care Team (Late Contact Info) Description 11/12/2024 Telephone Orthopedic Surgery [facility] [address] [phone] Devaughn Goodwin DPM 175 [place] [address] Social History Tobacco Use Types Packs/Day Years Used Date Smoking Tobacco: Former Alcohol Use Standard Drinks/Week Comments No 0 (1 standard drink = 0.6 oz pur e alcohol) Sex and Gender Information Value Date Recorded Sex Assigned at Not on file Gender Identity Not on file Sexual Orientation Not on file documented as of this encounter Progress Notes * Tamra Montoya - 11/12/2024 1:59 PM EST LVM requesting an Insurance referral for patient. PCP Dr Coronel.. documented in this encounter Plan of Treatment Upcoming Encounters Date Type Department Care Team (Late Contact Info) Description 01/07/2025 2:30 PM EST Office Visit Orthopedic Surgery [facility] [address] [phone] Devaughn Goodwin DPM 175 [place] [address] documented as of this encounter Visit Diagnoses Not on filedocumented in this encounter Care Teams Supervisor Fabrication Relationship Specialty Start Date End Date Karol Coronel MD [address] [place] [address] [address] [facility] [place] [address] PCP - General 08/29/24 documented as of this encounter
--- OUTSIDE RECORDS SUMMARY | 2024-11-27 11:00 | XMS_ITS | Clinical Summary ---
Author Organization 175 [facility] Address [address] [place] [address] Phone Care Team Providers Care Sql Server Developer Name Role Phone Karol Coronel MD Primary Care Provider [phone] Allergies No known active allergies Medications Medication Sig Dispensed Refills Start Date End Date Status albuterol HFA (PROVENTIL HFA;VENTOLIN HFA) 108 (90 Base) MCG/ACT inhaler Inhale 2 Puffs into the lungs every 4 hours as needed for Cough or Wheezing. 03/15/2012 Active cloZAPine (CLOZARIL) 100 mg tablet Take 2 Tabs by mouth daily. 03/15/2012 Active docusate sodium (COLACE) 100 mg capsule Take 1 Cap by mouth 2 times daily as needed for Constipation. 03/15/2012 Active divalproex (DEPAKOTE ER) 500 mg 24 hr tablet Take 2 Tabs by mouth daily. 03/15/2012 Active divalproex (DEPAKOTE) [address] tablet Take 1 Tab by mouth 2 times daily. 03/15/2012 Active metFORMIN (GLUCOPHAGE) 500 mg tablet Take 500 mg. Twice daily 03/15/2012 Active clonazePAM (KlonoPIN) 0.5 mg tablet Take 1 Tab by mouth 2 times daily as needed for Anxiety. 03/15/2012 Active pantoprazole (PROTONIX) 40 mg EC tablet Take 1 Tab by mouth daily. 03/15/2012 Active cholecalciferol (VITAMIN D-3) 25 mcg (1,000 unit) tablet Take 1,000 Caps by mouth. 03/15/2012 Active lisinopriL (PRINIVIL,ZESTRIL) 5 mg tablet Take 1 Tab by mouth daily. 03/15/2012 Active Active Problems Problem Noted Date Diagnosed Date Blindness of left eye 03/15/2012 Overview (11/13/2024): Injury as a child Diabetes mellitus, type II 03/15/2012 GERD (gastroesophageal reflux disease) 2 Hypertension 03/15/2012 Obesity 03/15/2012 Reactive airway disease 03/15/2012 Schizoaffective disorder, depressive type 2011 Encounters Date Type Department Care Team Description 11/12/2024 Telephone Orthopedic [facility] [address] [phone] Devaughn Goodwin DPM from Last 3 Months Surgical History Surgery Date Site/Laterality Comments APPENDECTOMY PROCEDURE: [place] APPENDECTOMY Medical History Medical History Date Comments Obesity 03/15/2012 DX:Obesity Blindness of left eye 03/15/2012 DX:Blindne ss of left eye Blindness of left eye 03/15/2012 DX:Blindne ss of left eye Family History Relation Name Status Comments Mother Alive Social History Tobacco Use Types Packs/Day Years Used Date Smoking Tobacco: Former Alcohol Use Standard Drinks/Week Comments No 0 (1 standard drink = 0.6 oz pur e alcohol) Sex and Gender Information Value Date Recorded Sex Assigned at Not on file Gender Identity Not on file Sexual Orientation Not on file Obstetrics History Plan of Treatment Upcoming Encounters Date Type Department Care Team (Late st Contact Info) Description 01/07/2025 2:30 PM EST Office Visit [place] [phone] [phone] Devaughn Goodwin DPM 175 [place] [address] Health Maintenance Due Date Last Done Comments Diabetes: Annual GFR (Glomer ular Filtration Rate) 1971 Pneumococcal Vaccine: Pediat rics (0 to 5 Years) and At-Risk Patients (6 to 64 Years) (1 of 2 - PCV) 1977 Diabetes: Annual Foot Exam 1981 Diabetes: Annual Retina Eye Exam 1981 DTaP,Tdap,and Td Vaccines (1 - Tdap) 1990 Hepatitis B Vaccines (1 of 3 - 19+ 3-dose series) 1990 Zoster Vaccines (1 of 2) 2021 COVID-19 Vaccine ( - 2023-2 5 season) 2024 Influenza Vaccine (#1) 2024 Cholesterol Screening (Lipid Panel) 11/12/2024 Colorectal Cancer Screening: Colonoscopy 11/12/2024 Depression Screening 11/12/2024 HIV Screening 11/12/2024 Hepatitis C Screening 11/12/2024 Social Influencers of Health Screening 11/12/2024 Diabetes: Annual Urine Albumin-Creatinine Ratio (uACR) 11/13/2024 Diabetes: Blood Sugar Contro l Test (HGBA1C) 11/13/2024 Hypertension/CHF/CAD Annual BMP Blood Test 11/13/2024 HIB Vaccines Aged Out No longer eligi ble based on patient's age to complete this topic HPV Vaccines Aged Out No longer eligi ble based on patient's age to complete this topic Hepatitis A Vaccines Aged Out No long er eligible based on patient's age to complete this topic IPV Vaccines Aged Out No longer eligi ble based on patient's age to complete this topic MMR Vaccines Aged Out No longer eligi ble based on patient's age to complete this topic Meningococcal ACWY Vaccine Aged Out N o longer eligible based on patient's age to complete this topic RSV Immunization Patients Un guille 20 months Aged Out No longer eligible b ased on patient's age to complete this topic Varicella Vaccines Aged Out No longer eligible based on patient's age to complete this topic Care Teams Sql Server Developer Relationship Specialty Start Date End Date Karol Coronel MD [address] [place] [address] [address] [facility] [place] [address] PCP - General 08/29/24
== END 2024-11-27 10:39 | disposition home or self-care (01) ==
PROVIDERS: PCP Internal Medicine; Visit Provider Internal Medicine
DX: E11.65 Type 2 diabetes mellitus with hyperglycemia (principal); Z79.4 Long term (current) use of insulin; E66.9 Obesity, unspecified; Z68.37 Body mass index [BMI] 37.0-37.9, adult; I10 Essential (primary) hypertension; K21.9 Gastro-esophageal reflux disease without esophagitis; K76.0 Fatty (change of) liver, not elsewhere classified; E78.00 Pure hypercholesterolemia, unspecified; Z12.11 Encounter for screening for malignant neoplasm of colon

== ENCOUNTER → 2024-11-27 09:51 | Outpatient (BNVA) | payer MEDICARE, MEDICAID, SELFPAY | PROVIDERS: PCP Internal Medicine; Visit Provider Internal Medicine | DX: E11.65 Type 2 diabetes mellitus with hyperglycemia (principal); I10 Essential (primary) hypertension; K21.9 Gastro-esophageal reflux disease without esophagitis; E66.9 Obesity, unspecified; K76.0 Fatty (change of) liver, not elsewhere classified; E78.00 Pure hypercholesterolemia, unspecified; Z79.4 Long term (current) use of insulin | CPT/HCPCS: 99212 ==

== ENCOUNTER 2024-12-04 15:25 | Outpatient (REF) | payer MEDICARE, MEDICAID, SELFPAY ==
[2024-12-04 15:38] LABS: MANUAL DIFF FLAG NO
--- OUTSIDE RECORDS SUMMARY | 2024-12-04 16:21 | XMS_ITS | Encounter Summary ---
Author Organization [facility] Address [address] [place] [phone] Care Team Providers Care Environmental Service Aide Name Role Phone Karol Coronel MD Primary Care Provider [phone] Encounter Details Date Type Department Care Team (Late Contact Info) Description 11/12/2024 Telephone Orthopedic Surgery [facility] [address] [phone] Devaughn Goodwin DPM [address] [phone] Social History Tobacco Use Types Packs/Day Years [...] Orthopedic Surgery [facility] [address] [phone] Devaughn Goodwin DPM [address] [phone] documented as of this encounter Visit Diagnoses Not on filedocumented in this encounter Care Teams Environmental Service Aide Relationship Specialty Start Date End Date Karol Coronel MD [address] [facility] [address] [facility] [place] [address] PCP - General 08/29/24 documented as of this encounter
--- OUTSIDE RECORDS SUMMARY | 2024-12-04 16:21 | XMS_ITS | Clinical Summary ---
Author Organization 175 [facility] Address [address] [place] [address] Phone Care Team Providers Care Jig Worker Name Role Phone Karol Coronel MD Primary Care Provider [phone] Allergies No known active allergies Medications Medication [...] Department Care Team Description 11/12/2024 Telephone Orthopedic [facility] [address] [phone] Devaughn Goodwin DPM from Last 3 Months Surgical History Surgery Date Site/Laterality Comments APPENDECTOMY PROCEDURE: NE APPENDECTOMY Medical History Medical History Date Comments [...] 01/07/2025 2:30 PM EST Office Visit Orthopedic [place] [address] [phone] Devaughn Goodwin DPM [address] [address] Health Maintenance Due Date Last Done Comments [...] Vaccines (1 of 2) 2021 COVID-19 Vaccine (1 - 2023-2 5 season) 2024 Influenza Vaccine [...] age to complete this topic Care Teams Jig Worker Relationship Specialty Start Date End Date Karol Coronel MD [address] [place] [address] [address] [facility] [place] [address] PCP - General 08/29/24
[2024-12-04 16:29] LABS: Basophils Percent Auto 0.5 % (0-2); Eosinophils Absolute Auto 0.1 X10*3/uL (0.0-0.4); Hematocrit 39.8 % (42.0-52.0); Hemoglobin 12.4 g/dl (14.0-18.0); Imm Gran Abs Auto 0.02 X10*3/uL (0.00-0.03); Imm Gran Pct Auto 0.3 % (0.0-0.4); Lymphocytes Absolute Auto 2.3 X10*3/uL (1.2-4.9); Lymphocytes Percent Auto 31.8 % (20-40); Mean Corpuscular HGB Conc 31.2 g/dl (31.0-36.0); Mean Corpuscular Hemoglobin 26.8 pg (27.0-33.0); Mean Corpuscular Volume 86.1 fL (80.0-98.0); Monocytes Absolute Auto 0.6 X10*3/uL (0.1-1.2); Monocytes Percent Auto 7.8 % (2-11); Neutrophils Absolute Auto 4.3 x10*3/uL (2.0-8.3); Neutrophils Percent Auto 58.6 % (45-73); Platelet Count 209 X10*3/uL (160-400); Red Blood Count 4.62 X10*6/uL (4.60-5.80); White Blood Count 7.3 X10*3/uL (4.8-10.8)
== END 2024-12-04 15:26 | disposition home or self-care (01) ==
LOC: HO.LABR 15:25
PROVIDERS: PCP Internal Medicine
DX: Z79.899 Other long term (current) drug therapy (principal)
CPT/HCPCS: 36415; 85025

== ENCOUNTER 2024-12-07 10:27 | Outpatient (AMB) | payer MEDICARE, MEDICAID, SELFPAY ==
--- NOTE | 2024-12-07 07:54 | A.OFFVIS_ITS ---
Vital Signs 12/07/24 10:34 Height 5 ft 11 in Weight 268 lb 15.423 oz BMI 37.5 BP 120/78 Blood Pressure Location Rt brachial Position Sitting Pulse 82 Pulse Source Pulse Oximeter Intake Visit Reasons: Type II diabetes Intake Note: Patient presents today for a follow-up on Type 2 Diabetes Mellitus: Last Diabetic eye exam was on: 04/30/2024 Last Podiatry exam was on: Patient does not see a General Assignment Reporter Most recent HbA1c: 8.5%, 11/09/2024 Random Glucose- 152 mg/dL, Today Lab Analyst Required: No Accompanied by: [facility] STAFF Allergies No Known Allergies Allergy (Unknown, Verified 12/07/24 10:37) NOT APPLICABLE HPI Comments Details: 54 YO male who is seen in f/u for T2DM. He was seen as initial consult on 11/09/2024 by Eula YANG at which time his mixed insulin was titrated upward and Mounjaro was increased in response to an A1c on 11/09/2024 of 8.5%. He is here with [facility] worker Jane. He lives at home on his own but has a visiting nurse daily and a RESEARCH CLERK. He goes to a day program and has 2-3 options of food while he is there. He does not exercise. Initially diagnosed with T2DM in 2014. Was initially started on treatment with metformin. Current regimen: Jardiance 25 mg daily Mounjaro 12.5 weekly metformin 1000mg twice daily 75/25 insulin 80 am 55 pm Checks sugars 2 times per day. Average sugar: 229 Range: am 162-225 3 readings below 200 last two weeks pm 216-294 one reading 139 one other reading beow 200 Reports low sugars none Has eyes checked yearly, last eye exam 04/2024, [denies] retinopathy. Has some numbness in feet +neuropathy, last foot exam over due has referral for [facility] in [place] Patient reports [facility] checks his feet on a regular basis and he looks at them also No nephropathy, not on nahomy-arb [facility] 10/11/2024 eGFR>60 microalbumin less than 5 Has HLD, on statin and Zetia. Last LDL 55 as measured on 10/11/2024. [Denies] CAD. Diet: reports no concentrated sweets [place] bar for a snack Eats lunch at day care program: rice beans, tuna salad sand, salad supper prepared by pcp rice, tacos, larger portion of rice [Had] diabetes education: three visits 2022 [facility] Medical History (Updated 10/11/24 @ 18:01 by Karol Coronel MD) Dyslipidemia Lump of skin of left lower extremity Adjustment disorder RUQ abdominal pain Injury to scrotum skilled nursing (current) use of insulin Blind left eye Obesity (BMI 30-39.9) Diabetic nephropathy GERD (gastroesophageal reflux disease) Vitamin D deficiency Schizophrenia Asthma Type 2 diabetes mellitus with hyperglycemia Hypertension Surgical History History of removal of cyst History of appendectomy Family History Father No problems noted. Mother No problems noted. Social History Housing: Assisted Living Facility Alcohol intake: never Patient Tobacco Use Status: Never used Tobacco e-Cigarette/Vaping Use: Never Used Second Hand Smoke Exposure: No service: No Current occupational status: disabled Cognitive needs: Yes Hearing needs: No Vision needs: No Physical Exam Vital Signs: BMI result Body Mass Index 37.5 Absence of Cushingoid features. Absence of acromegalic features. Neck exam reveals nl size thyroid about 15 gms. No thyroid nodules palpable. No carotid bruits present. Lungs CTA. Heart S1 S2, Reg R/R. No M/R/ G. Skin exam reveals absence of vitiligo or acanthosis nigricans. Abdominal exam reveals Soft NT/ND with NA BS. No organomegaly present. Const Other: Absence of Cushingoid features. Absence of acromegalic features. Neck exam reveals nl size thyroid about 15 gms. No thyroid nodules palpable. No carotid bruits present. Lungs CTA. Heart S1 S2, Reg R/R. No M/R G. Skin exam reveals absence of vitiligo or acanthosis nigricans. No edema Visual exam of foot performed. No ulcerations or open lesions. No inter digit maceration or fissuring. mild onychomycosis,ils elongated no callouses. Sensation diminshed to monofilament exam. Vibratory sensation is diminished to 128 Hz tuning fork. Neck Other: . Extrem Other: Visual exam of foot performed. No ulcerations or open lesions. No onchomycosis, no callouses.Pulses 2 + distally Sensation intact to monofilament exam. Vibratory sensation sensed is intact with 128 Hz tuning fork Assessment & Plan Assessment & Plan (1) Type 2 diabetes mellitus with hyperglycemia: Code(s): E11.65 - Type 2 diabetes mellitus with hyperglycemia Category: Medical Qualifiers: Diabetes mellitus slot host insulin use: with group home use Qualified Code(s): E11.65 - Type 2 diabetes mellitus with hyperglycemia; Z79.4 - skilled nursing (current) use of insulin Plan: This 54-year-old Type 2 diabetic with no known macro/macrovascular complications with avereage glucose in the mid 200's. Continue current medication with exception of increase insulin to 90 units in the am 60 units before supper and add low dose pioglitizone to improve insulin sensitivity, Side effects of actos reviwed with patient. Swelling, weight gain (rare at low dose) cardiac, rare bladder cancer. He was asked to reduce portion of rice and to adf 10 minute of exercise in the evening The patient had an opportunity to ask questions regarding treatment plan. The patient expressed understanding and agreement with the above treatment plan. [facility]D is aware they should contact our office by phone for worsening glucose readings or for any low blood sugars which may warrant a change in diabetes medication. Compliance is encouraged with medications and any followup alesha ting/consults which may have been ordered. Medications: New pioglitazone 15 mg PO DAILY 30 days 30 tabs 11RF Changed From Novolog Mix 70-30FlexPen U-100 100 unit/mL (70-30) (insulin asp prt-insulin aspart) 80 units before breakfast and 55 units before dinner subcutaneously 2 times a day; 30 days 60 mL 3RF NS To Novolog Mix 70-30FlexPen U-100 100 unit/mL (70-30) (insulin asp prt-insulin aspart) 90 units before breakfast and 60 units before dinner subcutaneously 2 times a day; 30 days 63 mL 3RF NS Patient Instructions: The patient was counseled to achieve a target A1C of 7% (154 avg). Fasting blood sugars should be 90-130 in the morning and less than 180 two hours after meals. Reviewed the relationship between poor diabetic control and the development of complications. Check your feet daily looking for any signs of infection, drainage, redness, ulceration and seek medical attention if this occurs. Break in shoes gradually and do not wear open-toed shoes or walk stocking footed or barefooted. Take 15 carb carbohydrate grams to treat a low sugar (3-4 glucose tablets, half a glass of juice or 15 carbohydrate grams of soft candy such as gummie snacks). Recheck your sugar in 15 minutes and re-treat again with 15 carbohydrate grams if low or still with symptoms. Do not drive a car or operate machinery if you do not know what your blood sugar is, if it is low or in excess of 300. Coding Level of Care Code Est Pt Level 5 (04976) Complex EM visit Add On G2211 Diagnoses Type 2 diabetes mellitus with hyperglycemia, with long-term current use of insulin E11.65; Z79.4 Diabetes mellitus group home insulin use: with slot host use Time Spent (min) 45 Comment Time spent reviewing labs/provider notes, face to face, chart doc
[2024-12-07 10:34] VITALS: BP 120/78; PULSE 82; BMI 37.5
[2024-12-07 10:45] LABS: Glucose, Whole Blood 152 mg/dL (60-115)
--- OUTSIDE RECORDS SUMMARY | 2024-12-07 11:10 | XMS_ITS | Encounter Summary ---
Author Organization [facility] Address [address] [place] [id number] Care Team Providers Care Bisque Placer Name Role Phone Karol Coronel MD Primary Care Provider [phone] Encounter Details Date Type Department Care Team (Late Contact Info) Description 11/12/2024 Telephone Orthopedic Surgery [facility] [address] [phone] Devaughn Goodwin DPM [address] [phone] Social History Tobacco Use Types Packs/Day Years [...] Orthopedic Surgery [facility] [address] [phone] Devaughn Goodwin DPM [address] [phone] documented as of this encounter Visit Diagnoses Not on filedocumented in this encounter Care Teams Bisque Placer Relationship Specialty Start Date End Date Karol Coronel MD [address] [facility] [place] [address] PCP - General 08/29/24 documented as of this encounter
--- OUTSIDE RECORDS SUMMARY | 2024-12-07 11:10 | XMS_ITS | Clinical Summary ---
Author Organization 175 [facility] Address [address] [place] [address] Phone Care Team Providers Care Supervisor Patching Name Role Phone Karol Coronel MD Primary Care Provider [phone] Allergies No known active allergies Medications Medication [...] Department Care Team Description 11/12/2024 Telephone Orthopedic [facility] [address] [phone] Devaughn Goodwin DPM from Last 3 Months Surgical History Surgery Date Site/Laterality Comments APPENDECTOMY PROCEDURE: [place] APPENDECTOMY Medical History Medical History Date Comments [...] 01/07/2025 2:30 PM EST Office Visit Orthopedic [place] [address] [phone] Devaughn Goodwin DPM [address] [address] Health Maintenance Due Date Last Done Comments [...] age to complete this topic Care Teams Supervisor Patching Relationship Specialty Start Date End Date Karol Coronel MD [address] [place] [address] [address] [facility] [place] [address] PCP - General 08/29/24
== END 2024-12-07 11:05 | disposition home or self-care (01) ==
PROVIDERS: PCP Internal Medicine; Visit Provider Nurse Practitioner Adult Health
DX: E11.65 Type 2 diabetes mellitus with hyperglycemia (principal); Z79.4 Long term (current) use of insulin
CPT/HCPCS: 99215; G2211

== ENCOUNTER → 2024-12-07 10:27 | Outpatient (BNVA) | payer MEDICARE, MEDICAID, SELFPAY | PROVIDERS: PCP Internal Medicine; Visit Provider Nurse Practitioner Adult Health | DX: E11.65 Type 2 diabetes mellitus with hyperglycemia (principal); Z79.4 Long term (current) use of insulin | CPT/HCPCS: 82947; 99212 ==

== ENCOUNTER 2025-01-01 15:18 | Outpatient (REF) | payer MEDICARE, MEDICAID, SELFPAY ==
[2025-01-01 16:21] LABS: MANUAL DIFF FLAG NO
[2025-01-01 16:39] LABS: Basophils Percent Auto 0.3 % (0-2); Eosinophils Percent Auto 0.5 % (0-4); Hematocrit 39.2 % (42.0-52.0); Hemoglobin 12.2 g/dl (14.0-18.0); Imm Gran Abs Auto 0.01 X10*3/uL (0.00-0.03); Imm Gran Pct Auto 0.2 % (0.0-0.4); Lymphocytes Absolute Auto 1.1 X10*3/uL (1.2-4.9); Lymphocytes Percent Auto 18.6 % (20-40); Mean Corpuscular HGB Conc 31.1 g/dl (31.0-36.0); Mean Corpuscular Hemoglobin 26.6 pg (27.0-33.0); Mean Corpuscular Volume 85.4 fL (80.0-98.0); Mean Platelet Volume 12.6 fL (9.4-12.4); Monocytes Absolute Auto 0.6 X10*3/uL (0.1-1.2); Monocytes Percent Auto 9.7 % (2-11); Neutrophils Absolute Auto 4.1 x10*3/uL (2.0-8.3); Neutrophils Percent Auto 70.7 % (45-73); Platelet Count 175 X10*3/uL (160-400); Red Blood Count 4.59 X10*6/uL (4.60-5.80); Red Cell Distribution Width 15.5 % (11.0-16.0); White Blood Count 5.8 X10*3/uL (4.8-10.8)
--- OUTSIDE RECORDS SUMMARY | 2025-01-01 19:05 | XMS_ITS | Clinical Summary ---
Author Organization 175 [facility] Address [address] [place] [address] Phone Care Team Providers Care Brimmer Blocker Name Role Phone Karol Coronel MD Primary Care Provider [phone] Allergies No known active allergies Medications albuterol HFA (PROVENTIL HFA;VENTOLIN HFA) 108 (90 Base) MCG/ACT inhaler Inhale 2 Puffs into the lungs every 4 hours as needed for Cough or Wheezing. 03/15/2012 Active cloZAPine (CLOZARIL) 100 mg tablet Take 2 Tabs by mouth daily. 03/15/2012 Active docusate sodium (COLACE) 100 mg capsule Take 1 Cap by mouth 2 times daily as needed for Constipatio n. 03/15/2012 Active divalproex (DEPAKOTE ER) 500 mg [...] 1,000 Caps by mouth. 03/15/2012 Active lisinopriL (PRINIVIL,ZESTRI L) 5 mg tablet Take 1 Tab by mouth daily. 03/15/2012 Active Active Problems Problem Noted Date Diagnosed Date Blindness of left eye 03/15/2012 Overview (11/13/2024): Injury as a child Diabetes mellitus, type II 03/15/2012 GERD (gastroesophageal reflux disease) 2 Hypertension 03/15/2012 Obesity 03/15/2012 Reactive airway disease 03/15/2012 Schizoaffective disorder, depressive type 2011 Encounters Date Type Department Care Team Description 11/12/2024 Telephone Orthopedic [facility] [address] [phone] Devaughn Goodwin DPM from Last 3 Months Surgical History Surgery Date Site/Laterality Comments APPENDECTOMY PROCEDURE: [place] APPENDECTOMY Medical History Medical History Date Comments [...] Recorded Sex Assigned at Not on file Legal Sex Male 11:47 AM EST Gender Identity Not on file Sexual Orientation Not on file Obstetrics History Plan of Treatment Upcoming Encounters Date Type Department Care Team (Late st Contact Info) Description 01/07/2025 2:30 PM EST Office Visit Orthopedic [address] [phone] Devaughn Goodwin DPM [address] [address] 01/24/2025 2:15 PM EDT Consult Orthopedic [place] [address] [phone] Montrell Dacosta DPM [address] [address] Health Maintenance Due Date Last Done Comments Diabetes: Annual GFR (Glomer ular Filtration Rate) 1971 Diabetes: Annual Foot Exam 1981 Diabetes: Annual Retina Eye Exam 1981 DTaP,Tdap,and Td Vaccines (1 - Tdap) 1990 Hepatitis B Vaccines (1 of 3 - 19+ 3-dose series) 1990 Pneumococcal Vaccine: 50+ Ye ars (1 of 2 - PCV) 1990 Pneumococcal Vaccine: Pediat rics (0 to 5 Years) and At-Risk Patients (6 to 64 Years) (1 of 2 - PCV) 1990 Zoster Vaccines (1 of 2) 2021 COVID-19 Vaccine (1 - 2023-2 5 season) 2024 Influenza Vaccine (#1) 2024 Cholesterol Screening (Lipid Panel) 11/12/2024 Colorectal Cancer Screening: Colonoscopy 11/12/2024 Depression Screening 11/12/2024 HIV Screening 11/12/2024 Hepatitis C Screening 11/12/2024 Medicare Annual Wellness Visit 11/12/2024 Social Influencers of Health Screening 11/12/2024 [...] patient's age to complete this topic Meningococcal B Vacine Aged Out No lo nger eligible based on patient's age to complete this topic RSV Immunization Patients Un guille 20 months Aged Out No longer eligible b ased on patient's age to complete this topic Varicella Vaccines Aged Out No longer eligible based on patient's age to complete this topic Insurance MEDICARE Care Teams Brimmer Blocker Relationship Specialty Start Date End Date Karol Coronel MD [address] [place] [address] [address] [facility] [place] [address] PCP - General 08/29/24
== END 2025-01-01 15:19 | disposition home or self-care (01) ==
LOC: HO.LAB 15:18
PROVIDERS: PCP Internal Medicine; Visit Provider Psychiatry & Neurology Psychiatry
DX: Z79.899 Other long term (current) drug therapy (principal)
CPT/HCPCS: 36415; 85025

== ENCOUNTER 2025-01-04 10:21 | Outpatient (AMB) | payer MEDICARE, MEDICAID, SELFPAY ==
--- NOTE | 2025-01-04 08:09 | A.OFFVIS_ITS ---
Vital Signs 01/04/25 10:30 Height 5 ft 11 in Weight 264 lb 8.875 oz BMI 36.9 BP 116/68 Blood Pressure Location Rt brachial Position Sitting Pulse 90 Pulse Source Pulse Oximeter Pulse Oximetry (%) 95 Oxygen Delivery Method Room Air Intake Visit Reasons: T2DM Intake Note: Patient presents today for a follow-up on Type 2 Diabetes Mellitus: Last Diabetic eye exam was on: 04/30/2024 Last Podiatry exam was on: Patient does not see a Lead Project Manager Most recent HbA1c: 8.5%, 11/09/2024 Random Glucose- 119 mg/dL, Today Tool Polisher Required: No Accompanied by: [facility] STAFF Allergies No Known Allergies Allergy (Unknown, Verified 01/04/25 10:31) NOT APPLICABLE HPI Comments Details: 54 YO male who is seen in f/u for T2DM. He was seen as initial consult on 11/09/2024 by Eula YANG at which time his mixed insulin was titrated upward and Mounjaro was increased in response to an A1c on 11/09/2024 of 8.5%. I saw him in f/u 12/07/24 and added low-dose pioglitazone and increased his mixed insulin He is here with [facility] worker Jane. 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 He goes to a day program and has 2-3 options of food while he is there. He does not exercise. Care is complicated by schizophrenia. Initially diagnosed with T2DM in 2014. Was initially started on treatment with metformin. Current regimen: Jardiance 25 mg daily Mounjaro 12.5 weekly metformin 1000mg twice daily pioglitozone 15mg 75/25 insulin 90 am 60 pm Checks sugars 2 times per day. Glucose in the morning 132-144 Later before dinner 159-227 Patient takes his morning insulin and does not eat for an hour and a half. He was counseled today not to do this and that he should eat some food when he initially takes his insulin/ He does not carry a source of sugar Reports low sugars none Denies retinopathy: Has eyes checked yearly, last eye exam 04/2024 +neuropathy: Has some numbness in feet +neuropathy, last foot exam today,has ref erral for [facility] in [place] Patient reports [facility] checks his feet on a regular basis and he looks at them also N nephropathy, not on nahomy-arb [facility] 10/11/2024 eGFR>60 microalbumin less than 5 Has HLD, on statin and Zetia. Last LDL 55 as measured on 10/11/2024. Denies CAD. 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 Mother No problems noted. Social History Housing: Assisted Living Facility Alcohol intake: never Patient Tobacco Use Status: Never used Tobacco e-Cigarette/Vaping Use: Never Used Second Hand Smoke Exposure: No service: No Current occupational status: disabled Cognitive needs: Yes Hearing needs: No Vision needs: No Physical Exam Vital Signs: Last Vital Signs Pulse 90 01/04/25 10:30 BP 116/68 01/04/25 10:30 Pulse Ox 95 01/04/25 10:30 Oxygen Delivery Method Room Air 01/04/25 10:30 BMI result Body Mass Index 36.9 Const Other: Absence of Cushingoid features. Absence of acromegalic features. Neck exam reveals nl size thyroid about 15 gms. No thyroid nodules palpable. Heart S1 S2, Reg R/R. No M/R G. Skin exam reveals absence of vitiligo or acanthosis nigricans. No edema Affect flat, poor historian, answers questions Deferred foot exam today. He has appt early next week with podiatry. Results Reviewed Results Reviewed: Laboratory Last Values Glucose (Clinic) 119 mg/dL (60-115) H 01/04/25 10:34 Assessment & Plan Assessment & Plan (1) Type 2 diabetes mellitus with hyperglycemia: Code(s): E11.65 - Type 2 diabetes mellitus with hyperglycemia Category: Medical Qualifiers: Diabetes mellitus care home insulin use: with care home use Qualified Code(s): E11.65 - Type 2 diabetes mellitus with hyperglycemia; Z79.4 - FPC (current) use of insulin Plan: This 54-year-old Type 2 diabetic with no known macro/macrovascular complications with average glucose of. HIs care is complicated by schizophrenia. Continue current meds Would like to see this patient wearing a medic alert bracelet identifying him as a diabetic on insulin. He is a poor historian and has psychiatric comorbidities so it would be important for any emergency responders to know that he is a diabetic. discussed going on a freestyle natalia 3+ and offered sensor today for next weo weeks which he declines today. He was advised to always carry sugar and eat regular meals. Will attempt to get a medic alert bracelet for this patient. The patient had an opportunity to ask questions regarding treatment plan. The patient expressed understanding and agreement with the above treatment plan. The patient is aware they should contact our office by phone for worsening glucose readings or for any low blood sugars which may warrant a change in diabetes medication. Compliance is encouraged with medications and f/u on any tests/consults which may have been ordered. Orders: Orders Basic Metabolic Panel Today E11.65 - Type 2 diabetes mellitus with hyperglycemia, Z79.4 - FPC (current) use of insulin Microalbumin, Random (w Creat) Today E11.65 - Type 2 diabetes mellitus with hyperglycemia, Z79.4 - equipment operator intermodal yard (current) use of insulin Creatinine Urine Today E11.65 - Type 2 diabetes mellitus with hyperglycemia, Z79.4 - FPC (current) use of insulin Lipid Panel Today E11.65 - Type 2 diabetes mellitus with hyperglycemia, Z79.4 - equipment operator intermodal yard (current) use of insulin Patient Instructions: Take 15 carb carbohydrate grams to treat a low sugar (3-4 glucose tablets, half a glass of juice or 15 carbohydrate grams of soft candy such as gummie snacks). Recheck your sugar in 15 minutes and re-treat again with 15 carbohydrate grams if low or still with symptoms. Do not drive a car or operate machinery if you do not know what your blood sugar is, if it is low or in excess of 300. The patient was counseled to achieve a target A1C of 7% (154 avg). Fasting blood sugars should be 90-130 in the morning and less than 180 two hours after meals. Reviewed the relationship between poor diabetic control and the development of complications. Check your feet daily looking for any signs of infection, drainage, redness, ulceration and seek medical attention if this occurs. Break in shoes gradually and do not wear open-toed shoes or walk stocking footed or barefooted. Sick day management reviewed. Coding Level of Care Code Est Pt Level 4 (62920) Complex EM visit Add On G2211 Diagnoses Type 2 diabetes mellitus with hyperglycemia, with long-term current use of insulin E11.65; Z79.4 Diabetes mellitus care home insulin use: with equipment operator intermodal yard use Time Spent (min) 30 Comment Time spent reviewing labs/provider notes, face to face, chart doc
[2025-01-04 10:30] VITALS: BP 116/68; PULSE 90; O2SAT 95; BMI 36.9
[2025-01-04 10:39] LABS: Glucose, Whole Blood 119 mg/dL (60-115)
--- OUTSIDE RECORDS SUMMARY | 2025-01-04 11:36 | XMS_ITS | Clinical Summary ---
Author Organization 175 [facility] Address [address] [place] [address] Phone Care Team Providers Care Weaving Machine Operator Name Role Phone Karol Coronel MD Primary Care Provider [phone] Allergies No known active allergies Medications albuterol [...] Department Care Team Description 11/12/2024 Telephone Orthopedic [facility] [address] [phone] Devaughn Goodwin DPM from Last 3 Months Surgical History Surgery Date Site/Laterality Comments APPENDECTOMY PROCEDURE: [place] APPENDECTOMY Medical History Medical History Date Comments [...] 01/07/2025 2:30 PM EST Office Visit Orthopedic [address] [phone] Devaughn Goodwin DPM [address] [address] 01/24/2025 2:15 PM EDT Consult Orthopedic [place] [address] [phone] Montrell Dacosta DPM [address] [address] Health Maintenance Due Date Last Done Comments [...] complete this topic Insurance MEDICARE Care Teams Weaving Machine Operator Relationship Specialty Start Date End Date Karol Coronel MD [address] [place] [address] [address] [facility] [place] [address] PCP - General 08/29/24
== END 2025-01-04 10:57 | disposition home or self-care (01) ==
PROVIDERS: PCP Internal Medicine; Visit Provider Nurse Practitioner Adult Health
DX: E11.65 Type 2 diabetes mellitus with hyperglycemia (principal); Z79.4 Long term (current) use of insulin
CPT/HCPCS: 99214; G2211

== ENCOUNTER → 2025-01-04 10:21 | Outpatient (BNVA) | payer MEDICARE, MEDICAID, SELFPAY | PROVIDERS: PCP Internal Medicine; Visit Provider Nurse Practitioner Adult Health | DX: E11.65 Type 2 diabetes mellitus with hyperglycemia (principal); Z79.4 Long term (current) use of insulin; Z79.84 Long term (current) use of oral hypoglycemic drugs; Z79.899 Other long term (current) drug therapy | CPT/HCPCS: 82947; 99212 ==

== ENCOUNTER 2025-01-08 12:55 | Outpatient (AMB) | payer MEDICARE, MEDICAID, SELFPAY ==
--- NOTE | 2025-01-08 12:59 | A.OFFVIS_ITS ---
Intake Vital Signs 01/08/25 13:01 Height 5 ft 11 in Weight 259 lb 2 oz BMI 36.1 BP 120/68 Blood Pressure Location Lt brachial Position Sitting Pulse 82 Pulse Source Pulse Oximeter Temp 97.1 F Temp Source Temporal Artery Scan Pulse Oximetry (%) 96 Oxygen Delivery Method Room Air Intake Visit Reasons: AWV Intake Note: Patient is here for an Annual Wellness Visit. Software Technician Required: No Account Receivable Associate: Account Receivable Associate Present Accompanied by: Staff Allergies No Known Allergies Allergy (Unknown, Verified 01/08/25 13:01) NOT APPLICABLE HPI AWV HPI Details [place]iatry [facility] [place] [facility] [place] [facility], [facility], [facility]hamology-[facility], [facility] Medical History Dyslipidemia Lump of skin of left lower extremity Adjustment disorder RUQ abdominal pain Injury to scrotum half-way (current) use of insulin Blind left eye Obesity (BMI 30-39.9) Diabetic nephropathy GERD (gastroesophageal reflux disease) Vitamin D deficiency Schizophrenia Asthma Type 2 diabetes mellitus with hyperglycemia Hypertension Surgical History History of removal of cyst History of appendectomy Family History Father No problems noted. Mother No problems noted. Social History Housing: Assisted Living Facility Alcohol intake: never Patient Tobacco Use Status: Never used Tobacco e-Cigarette/Vaping Use: Never Used Second Hand Smoke Exposure: No service: No Current occupational status: disabled Cognitive needs: Yes Hearing needs: No Vision needs: No Questionnaire Medicare Wellness Checkup [age] 65-70 (54) What gender do you identify with?: male During the past 4 weeks, how much have you been bothered by emotional problems such as feeling anxious, depressed, irritable, sad or downhearted, and blue?: not at all During the past 4 weeks, has your physical & emotional health limited your social activities with family, friends, neighbors, or groups?: not at all During the past 4 weeks, how much bodily pain have you generally had?: very mild pain During the past 4 weeks, was someone available to help you if you needed & wanted help?: yes, as much as I wanted During the past 4 weeks, what was the hardest physical activity you could do for at least 2 minutes?: very light Can you get to places out of walking distance without help? (For eg., can you travel alone on buses, taxis or drive your car?): No Can you go shopping for groceries or clothes without someone's help?: No Can you prepare your own meals?: No Can you do your housework without help?: No Because of any health problems, do you need the help of another person with your personal care needs such as eating, bathing, dressing or getting around the house?: No Can you handle your own money without help?: No During the past 4 weeks, how would you rate your health in general?: good During the past 4 weeks how have things been going for you?: pretty well Are you having difficulties driving your car?: not applicable, I don't use a car Do you always fasten your seat belt when you are in a car?: yes, usually During past 4 weeks, have you been bothered by the following: never: Falling or dizzy when standing up, Sexual problems?, Trouble eating well?, Problems using the telephone? and Tiredness or fatigue? and seldom: Teeth or denture problems? Have you fallen 2 or more times in the past year?: No Are you afraid of falling?: No Are you a smoker?: no During the past 4 weeks, how many drinks of wine, beer, or other alcoholic beverages did you have?: no alcohol at all Do you exercise for about 20 minutes 3 or more times a week?: no, I usually do not exercise this much Have you been given information to help with the following?: no: Hazards in your house that might hurt you? and no: Keeping track of your medications? How often do you have trouble taking medicines the way you have been told to take them?: I always take medicine as prescribed How confident are you that you can control & manage most of your health problems?: somewhat confident What is your race?: or origin or descent PHQ-9 Over the last 2 weeks, how often have you been bothered by any of the following problems? 1. Little interest or pleasure in doing things: not at all 2. Feeling down, depressed, or hopeless: not at all 3. Trouble falling or staying asleep, or sleeping too much: not at all 4. Feeling tired or having little energy: not at all 5. Poor appetite or overeating: not at all 7. Trouble concentrating on things, such as reading the newspaper or watching television: not at all 8. Moving or speaking so slowly that other people could have noticed. Or the opposite - being so fidgety or restless that you have been moving around a lot more than usual: not at all 9. Thoughts that you would be better off or of hurting yourself in some way: not at all Depression Screening Interpretation: Negative Depression Screening Done: Yes Source: Developed by Drs. Ollie Gray, Vanessa Mclean, Michael Crook and colleagues, with an educational cecilia from [employer]. Thrive Questionnaire Date Thrive assessed: 11/27/24 I am a: Patient What is your living situation today?: I have a steady place to live Within the past 12 months, did the food you bought not last and you didn't have the money to get more?: Never true Within the past 12 months, did you worry whether your food would run out before you got money to buy more?: Never true Do you have trouble paying for medicines?: No Do you have trouble getting transportation to medical appointments?: No Do you have trouble paying your heating and electricity bill?: No Do you have trouble taking care of your child, family member or friend?: I choose not to answer this question Do you have trouble with day-to-day activities such as bathing, preparing meals, shopping, managing finances, etc.?: No Are you currently unemployed and looking for a job?: No Are you interested in more education?: No Please select the resources that you would like help with: None Currently or been in a relationship where the following occur: No concerns reported THRIVE Score: 0 JC-7 AMB Questionnaire JC-7 Date JC - 7 assessed: 01/08/25 Feeling nervous, anxious, or on edge: 0 = Not at all Not being able to stop or control worryin = Not at all Worrying too much about different things: 0 = Not at all Trouble relaxin = Not at all Being so restless that it is hard to sit still: 0 = Not at all Becoming easily annoyed or irritable: 0 = Not at all Feeling afraid as if something awful might happen: 0 = Not at all Total JC-7 score (0-4 normal; 5-9 mild; 10-14 moderate; 15-21 severe): 0 Source: Developed by Drs. Ollie Gray, Vanessa Mclean, Michael Crook and colleagues, with an educational cecilia from [employer]. AUDIT C Alcohol Use Questionnaire (AUDIT-C) 1. How often do you have a drink containing alcohol?: Never Total Score: 0 Review of Systems Const Denies poor appetite and Denies weakness Eyes Denies no additional complaints ENT Reports Normal hearing present, Denies dizziness, Denies nasal congestion, Denies tinnitus and Denies sore throat Card Denies chest pain, Denies syncope, Denies rapid heart rate and Denies dyspnea Resp Denies cough and Denies dyspnea GI Denies change in stool character, Reports constipation, Denies diarrhea, Denies nausea and Denies vomiting Denies dysuria and Denies urinary frequency Neuro Reports Normal hearing present, Denies confusion, Denies dizziness, Denies syncope and Denies weakness Psych Denies confusion Physical Exam Vital Signs: Last Vital Signs Temp 97.1 F 01/08/25 13:01 Oxygen Delivery Method Room Air 01/08/25 13:01 BMI result Body Mass Index 36.1 Const General: No confusion Orientation/consciousness: No confusion HEENT Other: L impacted cerumen Head: Yes normocephalic Ears: external ears normal Face and sinus: Yes normal facial exam Mouth: moist mucous membranes Throat: Yes tonsils normal Eyes Conjunctivae: conjunctivae normal Pupils: Equal, round and reactive pupils present and Pupil accommodation reflex normal Direct Ophthalmoscopy: normal light reflex Neck Neck: No lymphadenopathy Thyroid: Thyroid normal Chest Chest palpation & inspection: normal inspection of the chest Resp Effort & Inspection: normal respiratory effort and no audible wheezes Auscultation: clear to auscultation bilaterally, no crackles, no wheezes and lung sounds not diminished Cardio Rate: regular rate Rhythm: regular rhythm Peripheral pulses: radial pulses present and dorsalis pedis present GI Other: referral to GI for colon test Palpation (GI): no masses Auscultation: normal bowel sounds and normoactive bowel sounds Rectal Exam - Male: Yes deferred Male General Exam: Yes normal external exam Skin General skin exam: no rashes or lesions noted Rashes: no rashes Neuro General: No confusion Cranial nerves: Yes Equal, round and reactive pupils present and Yes Normal hearing present Cognition (Neuro): normal cognition Gait exam (Neuro): Normal gait present Motor exam (neuro): 5/5 motor strength present throughout Deep tendon reflexes (DTR's): Right brachioradialis reflex intensity grade: 2+, Left brachioradialis reflex intensity grade: 2+, Right patellar reflex intensity grade: 2+ and Left patellar reflex intensity grade: 2+ Extrem Other: pedal pulse and pin prick good General: No edema Assessment & Plan Assessment & Plan (1) Medicare annual wellness visit, subsequent: Code(s): Z00.00 - Encounter for general adult medical examination without abnormal findings Plan: Patient is advised to eat healthy, keep well hydrated, keep active and have adequate sleep. (2) Type 2 diabetes mellitus with hyperglycemia: Code(s): E11.65 - Type 2 diabetes mellitus with hyperglycemia Qualifiers: Diabetes mellitus terminal superintendent insulin use: with chcf use Qualified Code(s): E11.65 - Type 2 diabetes mellitus with hyperglycemia; Z79.4 - half-way (current) use of insulin Plan: Decrease the amount of carbohydrate intake, pasta, bread, rice and potatoes are all sugar and that is aside from all the sweet stuff, remember that fruits are good but they are Sweet also. Patient is being followed up by Endocrinology hemoglobin A1c goal of less than 6.5. Patient is on Jardiance 25 mg once a day metformin a 1000 mg twice a day NovoLog mixed pioglitazone 15 mg once a day and Mounjaro once a week. (3) Hypertension: Code(s): I10 - Essential (primary) hypertension Qualifiers: Hypertension type: essential hypertension Qualified Code(s): I10 - Essential (primary) hypertension Plan: Continue with blood pressure medication. Decrease salt intake and exercise patient is on lisinopril 5 mg once a day (4) Asthma: Code(s): J45.909 - Unspecified asthma, uncomplicated Qualifiers: Asthma complication type: uncomplicated Asthma persistence: intermittent Asthma severity: mild Qualified Code(s): J45.20 - Mild intermittent asthma, uncomplicated Plan: Asthma is controlled no inhalers (5) GERD (gastroesophageal reflux disease): Code(s): K21.9 - Gastro-esophageal reflux disease without esophagitis Qualifiers: Esophagitis presence: without esophagitis Qualified Code(s): K21.9 - Gastro-esophageal reflux disease without esophagitis Plan: Avoid the foods that causes that usually spicy foods, tomato products, juices, coffee, soda and foods that your sensitive to. After eating do not lie down, allow 3-4 hours before in lie down. And keep the head of bed above 30 degrees to avoid the acid from going up. (6) Obesity (BMI 30-39.9): Code(s): E66.9 - Obesity, unspecified Plan: Keep active and eat healthy. (7) Fatty liver: Code(s): K76.0 - Fatty (change of) liver, not elsewhere classified Plan: Low-fat diet and exercise (8) Hypercholesterolemia: Code(s): E78.00 - Pure hypercholesterolemia, unspecified Plan: Avoid fried foods, chicken skin, eggs, butter margarine, pastries and meat. Be it pork or beef they have a lot of cholesterol LDL goal of less than 100 and triglyceride of less than 150. Patient on fenofibrate and atorvastatin 10 mg once a day. (9) Schizophrenia: Comment: [facility] Code(s): F20.9 - Schizophrenia, unspecified Qualifiers: Schizophrenia type: disorganized schizophrenia Qualified Code(s): F20.1 - Disorganized schizophrenia Plan: Continue with counseling and therapy (10) Colon cancer screening: Code(s): Z12.11 - Encounter for screening for malignant neoplasm of colon Plan History of Present Illness The patient is a 54-year-old male presenting for an annual well visit and monitoring of chronic disorders, including schizophrenia, diabetes mellitus, and hypertension. Recent weight loss of 5 pounds has been noted. He has a history of diabetes with an elevated hemoglobin A1c of 8.5% as of November, managed with medications like Jardiance and Metformin, aiming for a goal of A1c < 6.5%. Cholesterol levels reveal an LDL of 55 mg/dL and triglycerides at 265 mg/dL, treated with fenofibrate and atorvastatin. Essential hypertension is controlled with lisinopril. Asthma is well-managed without inhalers, while GERD is under diet and lifestyle intervention. A colonoscopy is due as previous documentation was unavailable. Anemia with a hemoglobin of 12.2 g/dL was noted. The patient reports minimal nocturia occurring once or twice per night. Health Maintenance - Discussed maintaining an active lifestyle and a healthy diet to manage weight, 5-pound weight loss recently noted. - Acknowledged previous vaccinations: up to date with flu, tetanus, and pneumonia shots. - Acknowledged management goals for diabetes: A1c target <6.5%. - LDL goal of <100 mg/dL and triglycerides <150 mg/dL. - Discussed the importance of scheduling an overdue colonoscopy. Social History - Nutritional intake includes rice; advised to limit quantities. - Discussions reinforce the importance of exercising due to difficulties in mobility and shortness of breath with minor activity. - Aware of the necessity to manage weight for overall health benefits. Review of Systems - Constitutional: Denies nausea, vomiting, dizziness, fainting. - Neurological: Denies shortness of breath. - Gastrointestinal: Reports diarrhea on occasion, now formed. Physical Exam - HEENT- Ear wax observed in ears; noted possible hearing difficulties. - Respiratory- Breath sounds clear, no noted abnormalities. - Cardiovascular- Heart sounds regular. - Musculoskeletal- Noted difficulties in lifting legs, reduced muscle mass; advised need for exercise. - Neurological- Normal foot sensation on light touch examination. Results - Labs: Hemoglobin 12.2 g/dL, hematocrit 39.2%, hemoglobin A1c 8.5%, LDL 55 mg/dL, triglycerides 265 mg/dL. Plan 1. 5% while hypertension remains monitored through Lisinopril. Asthmatic symptoms are controlled without immediate need for inhalers. GERD symptoms require lifestyle intervention through active living and dietary modification. Hypercholesterolemia treatment aims at reaching triglycerides and LDL targets, reinforcing the importance of regular specialist consultations. A colonoscopy is scheduled to address preventive screening criteria. Current health maintenance strategies involve reinforcing medication adherence and promoting weight reduction through diet and physical activity.: Patient was informed and verbally consented to the use of an ambient scribe for clinic note documentation during this visit. Discussion Notes I informed the patient about the significance of maintaining control over his diabetes, hypertension, and other chronic health issues. We reviewed the current medication regimen and stressed the importance of adhering to prescribed diabetes and cholesterol goals. I emphasized the relevance of continuing collaboration with endocrinology for diabetes management. The patient is overdue for a colonoscopy, and I will facilitate a referral. We discussed the importance of proactive weight loss for improving mobility and overall health, advising dietary moderation and augmented physical activity. The success of the current medication strategy was reviewed, with instructions to follow up in three months to assess progress and revisit colonoscopy scheduling. Patient Instructions - Continue current medications as prescribed. - Maintain an active lifestyle and follow a healthy diet, monitor portion sizes and sugar intake (e.g., rice). - Monitor blood sugar periodically; seek endocrinological input if sugars remain inadequate. - Schedule and attend the referred colonoscopy. - Follow up in three months or earlier if experiencing new or worsening symptoms. - Monitor any difficulty in breathing or unusual symptoms and consult with appropriate healthcare providers if necessary. Coding Level of Care Code Medicare Subsequent (G0439) Diagnoses Medicare annual wellness visit, subsequent Z00.00 Type 2 diabetes mellitus with hyperglycemia, with long-term current use of insulin E11.65; Z79.4 Diabetes mellitus chcf insulin use: with terminal superintendent use Essential hypertension I10 Hypertension type: essential hypertension Mild intermittent asthma without complication J45.20 Asthma complication type: uncomplicated Asthma persistence: intermittent Asthma severity: mild Gastroesophageal reflux disease without esophagitis K21.9 Esophagitis presence: without esophagitis Obesity (BMI 30-39.9) E66.9 Fatty liver K76.0 Hypercholesterolemia E78.00 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
[2025-01-08 13:01] VITALS: BP 120/68; PULSE 82; TEMP 36.2; O2SAT 96; BMI 36.1
--- OUTSIDE RECORDS SUMMARY | 2025-01-08 15:58 | XMS_ITS | Encounter Summary ---
Author Organization [facility] Address [id number] [place] [address] Care Team Providers Care Career Resource Specialist Name Role Phone Karol Coronel MD Primary Care Provider [phone] Reason for Visit * Reason Comments Consult NPV-diabetic foot ca re * Orthopedic (Routine) - Closed Specialty Diagnoses / Procedures Referred By Jane bahena Referred To Contact Podiatry / Orthopaedic Surgery Diagnoses Diabetes mellitus due to underlying condition with hyperglycemia Procedures AMB REFERRAL TO ORTHOPEDICS Rosalinda Logan PA [address] [place] [address] Phone: tel: fax: Devaughn Goodwin DPM [address] [address] Phone: tel: fax: Referral ID Status Reason Start Date Expiration Date V isits Requested Visits Authorized [id number] Closed Consult and Treat 09/08/2024 09/08/2025 1 1 Encounter Details Date Type Department Care Team (Late st Contact Info) Description 01/07/2025 2:30 PM EST Office Visit Orthopedic Surgery - [place] [address] [phone] Devaughn Goodwin DPM [address] [address] Tinea pedis of both feet (Primary Dx); Blindness of left eye, unspecified right eye visual impairment category; Dermatophytosis of nail; Pain in toe of right foot; Pain in toe of left foot; Diabetic mononeuropathy simplex (CMS/HCC) Social History Tobacco Use Types Packs/Day Years Used Date Smoking Tobacco: Former Alcohol Use Standard Drinks/Week Comments No 0 (1 standard drink = 0.6 oz pur e alcohol) Sex and Gender Information Value Date Recorded Sex Assigned at Not on file Legal Sex Male 11:47 AM EST Gender Identity Not on file Sexual Orientation Not on file documented as of this encounter Last Filed Vital Signs Vital Sign Reading Time Taken Comments Blood Pressure - - Pulse - - Temperature - - Respiratory Rate - - Oxygen Saturation - - Inhaled Oxygen Concentration - - Weight 118 kg (260 lb) 01/07/2025 2:35 PM EST Height 180.3 cm (5' 11 ) 01/07/2025 2:35 PM EST Body Mass Index 36.26 01/07/2025 2:35 PM EST documented in this encounter Progress Notes * Devaughn Goodwin DPM - 01/07/2025 2:30 PM EST Last PCP visit:Referring MD: Rosalinda Logan PA 08/29/24 IDENTIFIER: Trey is a 54 y.o. year old male who presents for consultation. CC: Foot pain HPI: Presents today for evaluation of his feet suffers from blindness type 2 diabetes has severe elongated painful thickened nails states he has rash and itchy skin he states that he has fungus of both feet pain discomfort a 5 out of 10 on a visual analog scale presents today by himself endorses numbness burning tingling in both feet ROS: GENERAL: Pt denies nausea, fever, vomiting, chills, or shortness of breath. Pt in NAD. CARDIOLOGY: pt denies chest pain, palpitations LUNGS: pt denies shortness of breath MUSCULOSKELETAL: See HPI, otherwise no joint pain or swelling, back pain, or muscle pain. SKIN: see HPI, otherwise no lesions, rash or itching NEURO: No persistent headache, weakness or numbness The remainder of the review of systems is noncontributory PAST MEDICAL HISTORY: Patient Active Problem List Diagnosis Blindness of left eye Diabetes mellitus, type II ([facility]) GERD (gastroesophageal reflux disease) Hypertension Obesity Reactive airway disease Schizoaffective disorder, depressive type ([facility]) SOCIAL HISTORY: Social History Tobacco Use Smoking status: Former Smokeless tobacco: Not on file Substance Use Topics Alcohol use: No ACTIVE MEDICATIONS: Outpatient Medications Marked as Taking for the 01/07/25 encounter (Office Visit) with Devaughn Goodwin DPM Medication Sig Dispense Refill albuterol HFA (PROVENTIL HFA;VENTOLIN HFA) 108 (90 Base) MCG/ACT inhaler Inhale 2 Puffs into the lungs every 4 hours as needed for Cough or Wheezing. cholecalciferol (VITAMIN D-3) 25 mcg (1,000 unit) tablet Take 1,000 Caps by mouth. clonazePAM (KlonoPIN) 0.5 mg tablet Take 1 Tab by mouth 2 times daily as needed for Anxiety. cloZAPine (CLOZARIL) 100 mg tablet Take 2 Tabs by mouth daily. divalproex (DEPAKOTE ER) 500 mg 24 hr tablet Take 2 Tabs by mouth daily. divalproex (DEPAKOTE) [address] tablet Take 1 Tab by mouth 2 times daily. docusate sodium (COLACE) 100 mg capsule Take 1 Cap by mouth 2 times daily as needed for Constipation. lisinopriL (PRINIVIL,ZESTRIL) 5 mg tablet Take 1 Tab by mouth daily. metFORMIN (GLUCOPHAGE) 500 mg tablet Take 500 mg. Twice daily pantoprazole (PROTONIX) 40 mg EC tablet Take 1 Tab by mouth daily. ALLERGIES: No Known Allergies PHYSICAL EXAM: Visit Vitals Ht 1.803 m (71 ) Wt 118 kg (260 lb) BMI 36.26 kg/m?? Smoking Status Former BSA 2.36 m?? PODIATRIC EXAMINATION: GENERAL: Patient appears well nourished, with NAD. VASCULAR: Dorsalis pedis pulses are 2/4 bilaterally and Posterior tibial pulses are 2/4 bilaterally. Capillary filling time within normal limits the digits. No pallor on elevation or rubor on dependency. No varicosities. Denies rest pain or claudication pain. NEUROLOGICAL: Sharp/dull sensation diminished, protective sensation intact 10/10 with 5.07 semmes kelby bilaterally, vibratory sensation with tuning fork intact to the tibial tuberosity. ORTHOPEDIC: Good muscle strength 5/5 of all flexors and extensors. Dorsi flexion of ankle ,10 degrees, plantar flexion WNL. No muscle atrophy. DERMATOLOGICAL:. Toenails: Left Toenail(s) 1-5: Crumbling upon debridement, subungual debris, discoloration, dystrophy, elongation, mycotic appearance, onychomycosis, pain and thickening. Right Toenail(s) 1-5: Crumbling upon debridement, subungual debris, discoloration, dystrophy, elongation, mycotic appearance, onychomycosis, pain and thickening. Annular scaling bilateral feet moccasin distribution Skin thinning texture shiny appearance diffuse hyperpigmentation bilaterally pedal hair decreased BIOMECHANICS: Ankle ROM WNL, STJ ROM wnl, MTJ ROM wnl, 1st MPJ ROM wnl. IMAGING: IMPRESSION: 1. Tinea pedis of both feet 2. Blindness of left eye, unspecified right eye visual impairment category 3. Dermatophytosis of nail 4. Pain in toe of right foot 5. Pain in toe of left foot PLAN: Pt was seen and examined, history reviewed. Discussed with patient regarding proper glucose control, exercise, and diet. Explained to patient proper shoe gear, and importance of daily foot checks. I reviewed neuropathy and why it occurs in diabetics. I educated the patient on proper blood sugar control and the importance of an HgBA1c of less than 7.0%. I reviewed the signs and symptoms of neuropathy with the patient Clotrimazole prescribed miconazole spray prescribed Pt to return for another evaluation in 3 months. Debridement of mycotic toenails 6-10: Verbal informed consent was obtained from the patient. Greater than 6 nails were aseptically debrided in thickness and length with nail nippers Devaughn Goodwin DPM documented in this encounter Plan of Treatment Upcoming Encounters Date Type Department Care Team (Late st Contact Info) Description 04/09/2025 10:45 AM EDT Office Visit Orthopedic Surgery - [place] [address] [phone] Devaughn Goodwin DPM [address] [address] documented as of this encounter Visit Diagnoses Diagnosis Tinea pedis of both feet- Primary Blindness of left eye, unspecified right eye visual impairment category Dermatophytosis of nail Pain in toe of right foot Pain in soft tissues of limb Pain in toe of left foot Pain in soft tissues of limb Diabetic mononeuropathy simplex (CMS/HCC) Type II or unspecified type diabetes mellitus with neurological manifestations, not stated as uncontrolled documented in this encounter Care Teams Career Resource Specialist Relationship Specialty Start Date End Date Karol Coronel MD [address] [facility] [place] [address] PCP - General 08/29/24 documented as of this encounter
--- OUTSIDE RECORDS SUMMARY | 2025-01-08 15:58 | XMS_ITS | Clinical Summary ---
Author Organization 175 [facility] Address 175 [place] [address] Phone Care Team Providers Care Manager Media Name Role Phone Karol Coronel MD Primary Care Provider [phone] Allergies No known active allergies Medications albuterol [...] Encounters Date Type Department Care Team Description 01/07/2025 2:30 PM EST Office Visit [facility] [address] [phone] Devaughn Goodwin, DPM Tinea pedis of both feet (Primary Dx); Blindness of left eye, unspecified right eye visual impairment category; Dermatophytosis of nail; Pain in toe of right foot; Pain in toe of left foot; Diabetic mononeuropathy simplex (CMS/HCC) 11/12/2024 Telephone Orthopedic Surgery [facility] [address] [phone] Devaughn Goodwin DPM from Last 3 Months Surgical History Surgery Date Site/Laterality Comments APPENDECTOMY PROCEDURE: [place] APPENDECTOMY Medical History Medical History Date Comments [...] Sexual Orientation Not on file Obstetrics History Last Filed Vital Signs Vital Sign Reading Time Taken Comments Blood Pressure - - Pulse - - Temperature - - Respiratory Rate - - Oxygen Saturation - - Inhaled Oxygen Concentration - - Weight 118 kg (260 lb) 01/07/2025 2:35 PM EST Height 180.3 cm (5' 11 ) 01/07/2025 2:35 PM EST Body Mass Index 36.26 01/07/2025 2:35 PM EST Plan of Treatment Upcoming Encounters Date Type Department Care Team (Late st Contact Info) Description 04/09/2025 10:45 AM EDT Office Visit Orthopedic Surgery - [place] 250 175 [facility] [address] [place] [phone] Devaughn Goodwin, DPM 175 [facility] [address] [place] [address] Health Maintenance Due Date Last Done Comments Diabetes: Annual GFR (Glomerular Filtration Rate) 1971 Diabetes: Annual Foot Exam 1981 Diabetes: Annual Retina Eye Exam 1981 Hepatitis B Vaccines (1 of 3 - 19+ 3-dose series) 1990 Pneumococcal Vaccine: 50+ Years (2 of 2 - PCV) 03/15/2018 03/15/2017 Pneumococcal Vaccine: Pediatrics (0 to 5 Years) and At-Risk Patients (6 to 64 Years) (2 of 2 - PCV) 03/15/2018 03/15/2017 Zoster Vaccines (1 of 2) 2021 COVID-19 Vaccine ( season) 2024 09/03/2022, 02/05/2021, 01/15/2021 Cholesterol Screening (Lipid Panel) 11/12/2024 Colorectal Cancer Screening: Colonoscopy 11/12/2024 Depression Screening 11/12/2024 HIV Screening 11/12/2024 Hepatitis C Screening 11/12/2024 Medicare Annual Wellness Visit 11/12/2024 Social Influencers of Health Screening 11/12/2024 Diabetes: Annual Urine Albumin-Creatinine Ratio (uACR) 11/13/2024 Diabetes: Blood Sugar Control Test (HGBA1C) 11/13/2024 Hypertension/CHF/CAD Annual BMP Blood Test 11/13/2024 DTaP,Tdap,and Td Vaccines (2 - Td or Tdap) 05/05/2033 05/05/2023 Influenza Vaccine Completed 08/07/2024, , 09/03/2022, Additional history exists HIB Vaccines Aged Out No longer eligi [...] to complete this topic RSV Immunization Patients Under 20 months Aged Out No longer eligible based on patient's age to complete this topic Varicella Vaccines Aged Out No longer eligible based on patient's age to complete this topic Insurance MEDICARE Care Teams Manager Media Relationship Specialty Start Date End Date Karol Coronel MD [address] [place] [address] [address] [facility] [place] [address] PCP - General 08/29/24
== END 2025-01-08 13:40 | disposition home or self-care (01) ==
PROVIDERS: PCP Internal Medicine; Visit Provider Internal Medicine
DX: Z00.00 Encounter for general adult medical examination without abnormal findings (principal); E11.65 Type 2 diabetes mellitus with hyperglycemia; Z79.4 Long term (current) use of insulin; F20.1 Disorganized schizophrenia; I10 Essential (primary) hypertension; J45.20 Mild intermittent asthma, uncomplicated; K21.9 Gastro-esophageal reflux disease without esophagitis; E66.9 Obesity, unspecified; K76.0 Fatty (change of) liver, not elsewhere classified; E78.00 Pure hypercholesterolemia, unspecified; Z12.11 Encounter for screening for malignant neoplasm of colon

== ENCOUNTER → 2025-01-08 12:55 | Outpatient (BNVA) | payer MEDICARE, MEDICAID, SELFPAY | PROVIDERS: PCP Internal Medicine; Visit Provider Internal Medicine ==

== ENCOUNTER 2025-01-31 15:11 | Outpatient (REF) | payer MEDICARE, MEDICAID, SELFPAY ==
[2025-01-31 17:31] LABS: Anion Gap 14 (12-20); Blood Urea Nitrogen 22 mg/dL (9-16); Calcium 9.8 mg/dL (8.4-10.2); Carbon Dioxide 22 mmol/L (22-29); Chloride 109 mmol/L (96-108); Cholesterol 130 mg/dL (<200); Estimated Glomerular Filt Rate > 60; Glucose Random 195 mg/dL (60-115); HDL Cholesterol 21 mg/dL (>40); LDL Cholesterol Calculated 52 mg/dL (<100); Potassium 4.1 mmol/L (3.3-5.1); Sodium 141 mmol/L (135-145); Triglycerides 285 mg/dL (<150)
[2025-01-31 19:01] LABS: Creatinine Urine 62.16 mg/dL; Microalbumin Urine < 5.0 mg/L
== END 2025-01-31 15:12 | disposition home or self-care (01) ==
LOC: HO.LABR 15:11
PROVIDERS: Internal Medicine Endocrinology, Diabetes & Metabolism; PCP Internal Medicine
DX: E11.65 Type 2 diabetes mellitus with hyperglycemia (principal); Z79.4 Long term (current) use of insulin; Z79.899 Other long term (current) drug therapy
CPT/HCPCS: 36415; 80048; 80061; 82043; 82570

== ENCOUNTER 2025-03-05 12:33 | Outpatient (REF) | payer MEDICARE, MEDICAID, SELFPAY ==
[2025-03-05 12:58] LABS: MANUAL DIFF FLAG NO
[2025-03-05 13:08] LABS: Basophils Percent Auto 0.6 % (0-2); Eosinophils Absolute Auto 0.1 X10*3/uL (0.0-0.4); Eosinophils Percent Auto 1.5 % (0-4); Hematocrit 38.4 % (42.0-52.0); Hemoglobin 12.3 g/dl (14.0-18.0); Imm Gran Abs Auto 0.02 X10*3/uL (0.00-0.03); Imm Gran Pct Auto 0.3 % (0.0-0.4); Lymphocytes Absolute Auto 2.5 X10*3/uL (1.2-4.9); Lymphocytes Percent Auto 37.3 % (20-40); Mean Corpuscular Hemoglobin 27.6 pg (27.0-33.0); Mean Corpuscular Volume 86.3 fL (80.0-98.0); Mean Platelet Volume 11.4 fL (9.4-12.4); Monocytes Absolute Auto 0.6 X10*3/uL (0.1-1.2); Monocytes Percent Auto 8.1 % (2-11); Neutrophils Absolute Auto 3.6 x10*3/uL (2.0-8.3); Neutrophils Percent Auto 52.2 % (45-73); Platelet Count 212 X10*3/uL (160-400); Red Blood Count 4.45 X10*6/uL (4.60-5.80); Red Cell Distribution Width 15.6 % (11.0-16.0); White Blood Count 6.8 X10*3/uL (4.8-10.8)
--- OUTSIDE RECORDS SUMMARY | 2025-03-05 14:25 | XMS_ITS | Clinical Summary ---
Author Organization 175 [facility] Address 175 [place] [address] Phone Care Team Providers Care Finishing Machine Tender Name Role Phone Karol Coronel MD Primary Care Provider [phone] Allergies No known active allergies Medications albuterol [...] as a child Diabetes mellitus, type II ([facility] V24, [facility] V28) 03/15/2012 GERD (gastroesophageal reflux disease) 2 Hypertension 03/15/2012 Obesity 03/15/2012 Reactive airway disease 03/15/2012 Schizoaffective disorder, de pressive type ([facility] V24, [facility] V28) 03/15/2012 Encounters Date Type Department Care Team Description 01/07/2025 2:30 PM EST Office Visit Orthopedic Surgery [facility] [address] [phone] Devaughn Goodwin, DPM Tinea pedis of both feet (Primary Dx); Blindness of left eye, unspecified right eye visual impairment category; Dermatophytosis of nail; Pain in toe of right foot; Pain in toe of left foot; Diabetic mononeuropathy simplex ([facility] V24, [facility] V28) from Last 3 Months Surgical History Surgery Date Site/Laterality Comments APPENDECTOMY PROCEDURE: [place] APPENDECTOMY Medical History Medical History Date Comments [...] 10:45 AM EDT Office Visit Orthopedic Surgery [facility] [address] [phone] Devaughn Goodwin, DPM [address] [address] Health Maintenance Due Date Last Done Comments [...] age to complete this topic Meningococcal B Vaccine Aged Out No l onger eligible based on patient's age to complete this topic RSV Immunization Patients Under 20 months Aged Out No longer eligible based on patient's age to complete this topic Varicella Vaccines Aged Out No longer eligible based on patient's age to complete this topic Insurance MEDICARE MEDICAID - [place] Care Teams Finishing Machine Tender Relationship Specialty Start Date End Date Karol Coronel MD [address] [place] [address] [address] [facility] [place] [address] PCP - General 08/29/24
== END 2025-03-05 12:34 | disposition home or self-care (01) ==
LOC: HO.LAB 12:33
PROVIDERS: PCP Internal Medicine
DX: Z79.899 Other long term (current) drug therapy (principal)
CPT/HCPCS: 36415; 85025

== ENCOUNTER 2025-04-05 10:31 | Outpatient (AMB) | payer MEDICARE, MEDICAID, SELFPAY ==
--- NOTE | 2025-04-05 07:34 | A.OFFVIS_ITS ---
Vital Signs 04/05/25 10:32 Height 5 ft 11 in Weight 260 lb 2.327 oz BMI 36.3 BP 128/78 Blood Pressure Location Rt brachial Position Sitting Pulse 90 Pulse Source Pulse Oximeter Pulse Oximetry (%) 97 Oxygen Delivery Method Room Air Intake Visit Reasons: T2DM Intake Note: Patient presents today for a follow-up on Type 2 Diabetes Mellitus: Last Diabetic eye exam was on: 04/30/2024 Last Podiatry exam was on: Patient does not see a Plate And Weld Inspector Most recent HbA1c: 6.2%, 04/05/2025 Random Glucose- 112 mg/dL, Today Allergies No Known Allergies Allergy (Unknown, Verified 01/08/25 13:01) NOT APPLICABLE HPI Comments Details: 54 YO male who is seen in f/u for T2DM. He was last seen in follow up 01/04. At that time I recommended going on a sensor which the patient declined and also recommended that he purchased a medical alert bracelet as he has a poor historian in in the event of an emergency it would be important for any 1st responders to know that he was diabetic. He was seen as initial consult on 11/09/2024 by Eula Logan at which time his mixed insulin was titrated upward and Mounjaro was increased in response to an A1c on 11/09/2024 of 8.5%. I saw him in f/u 12/07/24 and added low-dose pioglitazone and increased his mixed insulin He is here with CHD worker Jane. His A1c is 6.2%. He lives at home on his own. He has several roommates. He has a visiting nurse daily and a SR. DIRECTOR. He goes to a day program and has 2-3 options of food while he is there. He does not exercise. Care is complicated by schizophrenia. Initially diagnosed with T2DM in 2014. Was initially started on treatment with metformin. Current regimen: Jardiance 25 mg daily Mounjaro 12.5 weekly metformin 1000mg twice daily pioglitozone 15mg 75/25 insulin 90 am 60 pm Checks sugars 2 times per day. Glucose average is 174 with no significant lows He does not carry a source of sugar and has been advised to do so. I also recommended with his final dressing cutter that he should wear a medical alert bracelet. Reports low sugars none Denies retinopathy: Has eyes checked yearly, last eye exam 04/2024 has yearly exam scheduled +neuropathy: Has some numbness in feet +neuropathy, last foot exam today, sees podiatry in [place] on [facility] [address] regularly he is due next week Patient reports [facility] checks his feet on a regular basis and he looks at them also N nephropathy, not on nahomy-arb UAC 10/11/2024 eGFR>60 microalbumin less than 5 Has HLD, on statin and Zetia. Last LDL 55 as measured on 10/11/2024. Denies CAD. Diet: reports no concentrated sweets nature surveyor bar for a snack Eats lunch at day care program: rice beans, tuna salad sand, salad supper prepared by pcp lars tacos, larger portion of rice [Had] diabetes education: three visits 2022 [facility] Medical History (Updated 01/08/25 @ 13:21 by Karol Coronel MD) Headache Bilateral otitis externa Left otitis media Dyslipidemia Lump of skin of left lower extremity Adjustment disorder RUQ abdominal pain Injury to scrotum buttermaker (current) use of insulin Blind left eye Obesity (BMI 30-39.9) Diabetic nephropathy GERD (gastroesophageal reflux disease) Vitamin D deficiency Schizophrenia Asthma Type 2 diabetes mellitus with hyperglycemia Hypertension Surgical History History of removal of cyst History of appendectomy Family History Father No problems noted. Mother No problems noted. Social History Housing: Assisted Living Facility Alcohol intake: never Patient Tobacco Use Status: Never used Tobacco e-Cigarette/Vaping Use: Never Used Second Hand Smoke Exposure: No service: No Current occupational status: disabled Cognitive needs: Yes Hearing needs: No Vision needs: No Physical Exam Vital Signs: Last Vital Signs Pulse 90 04/05/25 10:32 BP 128/78 04/05/25 10:32 Pulse Ox 97 04/05/25 10:32 Oxygen Delivery Method Room Air 04/05/25 10:32 BMI result Body Mass Index 36.3 Const Other: Absence of Cushingoid features. Absence of acromegalic features. Good eye conta ct. Answers all questions but does not speak unless responded to. Speech not hurried. Neck exam reveals nl size thyroid about 15 gms. No thyroid nodules palpable. Heart S1 S2, Reg R/R. No M/R G. Skin exam reveals absence of vitiligo or acanthosis nigricans. No edema. Visual exam of foot performed. No ulcerations or open lesions. No inter digit maceration or fissuring. No onychomycosis, positive callous. Nails elongated but not thickened. Sensation intact to monofilament exam. Vibratory sensation is normal with 128 Hz tuning fork. Results AMB Hemoglobin A1c AMB Hemoglobin A1c 6.2 % Last Edit by DARIUS Matute on 04/05/25 10:48 Results Reviewed Results Reviewed: Laboratory Last Values Glucose (Clinic) 112 mg/dL (60-115) 04/05/25 10:39 Hgb A1c (Clinic) 6.2 % (4.0-6.0) H 04/05/25 10:43 Assessment & Plan Assessment & Plan (1) Type 2 diabetes mellitus with hyperglycemia: Code(s): E11.65 - Type 2 diabetes mellitus with hyperglycemia Category: Medical Qualifiers: Diabetes mellitus alf insulin use: with alf use Qualified Code(s): E11.65 - Type 2 diabetes mellitus with hyperglycemia; Z79.4 - retirement (current) use of insulin Plan: Patient is a 54-year-old type 2 diabetic with a history of schizophrenia with dramatically improved glucose numbers. A1c is down to 6.2%. He is not having any lows but we will decrease his morning insulin to 86 units. He was counseled to try to start exercising 15 minutes per day. I advised that he decrease the amount of rice he is eating. His weight is down 5 lb. I discussed purchasing a medical alert bracelet with his final dressing cutter. She does report that he has never really alone in when at home was with roommates. He is due for podiatry and has callus formation. Orders: Orders AMB Hemoglobin A1c Today E11.65 - Type 2 diabetes mellitus with hyperglycemia, Z79.4 - retirement (current) use of insulin Medications: Changed From tirzepatide 12.5 mg (0.5 mL) subcut QWEEK 2 mL 2RF To tirzepatide (Mounjaro) 12.5 mg (0.5 mL) subcut QWEEK 28 days 2 mL 6RF From Novolog Mix 70-30FlexPen U-100 100 unit/mL (70-30) (insulin asp prt-insulin aspart) 90 units before breakfast and 60 units before dinner subcutaneously 2 times a day; 30 days 63 mL 3RF NS To Novolog Mix 70-30FlexPen U-100 100 unit/mL (70-30) (insulin asp prt-insulin aspart) 86 units before breakfast and 60 units before dinner subcutaneously 2 times a day; 30 days 63 mL 3RF NS Patient Instructions: Check your feet daily looking for any signs of infection, drainage, redness, ulceration and seek medical attention if this occurs. Break in shoes gradually and do not wear open-toed shoes or walk stocking footed or barefooted. Carry a source of sugar Coding Level of Care Code Est Pt Level 4 (83610) Complex EM visit Add On G2211 Diagnoses Type 2 diabetes mellitus with hyperglycemia, with long-term current use of insulin E11.65; Z79.4 Diabetes mellitus alf insulin use: with alf use Time Spent (min) 30 Comment Time spent reviewing labs/provider notes, face to face, chart doc
[2025-04-05 10:32] VITALS: BP 128/78; PULSE 90; O2SAT 97; BMI 36.3
[2025-04-05 10:43] LABS: Glucose, Whole Blood 112 mg/dL (60-115)
--- OUTSIDE RECORDS SUMMARY | 2025-04-05 11:12 | XMS_ITS | Clinical Summary ---
Author Organization 175 [facility] Address 175 [place] [address] Phone Care Team Providers Care Wire Mill Rover Name Role Phone Karol Coronel MD Primary Care Provider [phone] Allergies No known active allergies Medications albuterol [...] as a child Diabetes mellitus, type II [place] [place], [facility] V28) 03/15/2012 GERD (gastroesophageal reflux disease) 2 Hypertension 03/15/2012 Obesity 03/15/2012 Reactive airway disease 03/15/2012 Schizoaffective disorder, de pressive type ([facility] [place]24, [facility] V28) 03/15/2012 Encounters Date Type Department Care Team Description 01/07/2025 2:30 PM EST Office Visit Orthopedic Surgery [facility] [address] [phone] Devaughn Goodwin, DPM Tinea pedis of both feet (Primary Dx); Blindness of left eye, unspecified right eye visual impairment category; Dermatophytosis of nail; Pain in toe of right foot; Pain in toe of left foot; Diabetic mononeuropathy simplex ([facility] V24, [facility] V28) from Last 3 Months Surgical History Surgery Date Site/Laterality Comments APPENDECTOMY PROCEDURE: [place] APPENDECTOMY Medical History Medical History Date Comments [...] 10:45 AM EDT Office Visit Orthopedic Surgery [facility] [address] [phone] Devaughn Goodwin, DPM [address] [address] Health Maintenance Due Date Last Done Comments [...] Insurance MEDICARE MEDICAID - [place] Care Teams Wire Mill Rover Relationship Specialty Start Date End Date Karol Coronel MD [address] [place] [address] Dr [address] [facility] [place] [address] PCP - General 08/29/24
== END 2025-04-05 10:54 | disposition home or self-care (01) ==
LOC: HO.ENCR 10:31
PROVIDERS: PCP Internal Medicine; Visit Provider Nurse Practitioner Adult Health
DX: E11.65 Type 2 diabetes mellitus with hyperglycemia (principal); Z79.4 Long term (current) use of insulin
CPT/HCPCS: 99214; G2211

== ENCOUNTER 2025-04-05 10:31 | Outpatient (REF) | payer MEDICARE, MEDICAID, SELFPAY ==
[2025-04-05 15:05] LABS: MANUAL DIFF FLAG NO
[2025-04-05 15:14] LABS: Basophils Absolute Auto 0.1 X10*3/uL (0.0-0.2); Basophils Percent Auto 0.7 % (0-2); Eosinophils Absolute Auto 0.1 X10*3/uL (0.0-0.4); Eosinophils Percent Auto 1.7 % (0-4); Hematocrit 37.5 % (42.0-52.0); Hemoglobin 12.2 g/dl (14.0-18.0); Imm Gran Abs Auto 0.02 X10*3/uL (0.00-0.03); Imm Gran Pct Auto 0.3 % (0.0-0.4); Lymphocytes Absolute Auto 2.9 X10*3/uL (1.2-4.9); Lymphocytes Percent Auto 41.4 % (20-40); Mean Corpuscular HGB Conc 32.5 g/dl (31.0-36.0); Mean Corpuscular Hemoglobin 28.4 pg (27.0-33.0); Mean Corpuscular Volume 87.4 fL (80.0-98.0); Mean Platelet Volume 11.5 fL (9.4-12.4); Monocytes Absolute Auto 0.4 X10*3/uL (0.1-1.2); Monocytes Percent Auto 6.3 % (2-11); Neutrophils Absolute Auto 3.4 x10*3/uL (2.0-8.3); Neutrophils Percent Auto 49.6 % (45-73); Platelet Count 234 X10*3/uL (160-400); Red Blood Count 4.29 X10*6/uL (4.60-5.80); Red Cell Distribution Width 14.5 % (11.0-16.0); White Blood Count 6.9 X10*3/uL (4.8-10.8)
== END 2025-04-05 10:32 | disposition home or self-care (01) ==
LOC: HO.LABR 10:31
PROVIDERS: PCP Internal Medicine; Visit Provider Nurse Practitioner Adult Health
DX: Z79.899 Other long term (current) drug therapy (principal); E11.65 Type 2 diabetes mellitus with hyperglycemia; Z79.4 Long term (current) use of insulin
CPT/HCPCS: 36415; 82947; 83036; 85025; 99212

== ENCOUNTER 2025-04-19 10:43 | Outpatient (AMB) | payer MEDICARE, MEDICAID, SELFPAY ==
--- NOTE | 2025-04-19 10:52 | A.OFFPC_ITS ---
Vital Signs 04/19/25 10:54 Height 5 ft 11 in Weight 257 lb 8 oz BMI 35.9 BP 128/66 Blood Pressure Location Lt brachial Position Sitting Pulse 88 Pulse Source Pulse Oximeter Temp 97.3 F Temp Source Temporal Artery Scan Pulse Oximetry (%) 98 Oxygen Delivery Method Room Air Intake Visit Reasons: DM Intake Note: Patient is here to follow up on DM. 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: Present Accompanied by: STAFF Allergies No Known Allergies Allergy (Unknown, Verified 04/19/25 10:54) NOT APPLICABLE Tobacco use date assessed: 04/19/25 Dental Screening Dental Screen Date: 11/27/24 [facility] Medical History (Updated 01/08/25 @ 13:21 by Karol Coronel MD) Headache Bilateral otitis externa Left otitis media Dyslipidemia Lump of skin of left lower extremity Adjustment disorder RUQ abdominal pain Injury to scrotum nursing home (current) use of insulin Blind left eye Obesity (BMI 30-39.9) Diabetic nephropathy GERD (gastroesophageal reflux disease) Vitamin D deficiency Schizophrenia Asthma Type 2 diabetes mellitus with hyperglycemia Hypertension Surgical History History of removal of cyst History of appendectomy Family History Father No problems noted. Mother No problems noted. Social History Housing: Assisted Living Facility Alcohol intake: never Patient Tobacco Use Status: Never used Tobacco e-Cigarette/Vaping Use: Never Used Second Hand Smoke Exposure: No service: No Current occupational status: disabled Cognitive needs: Yes Hearing needs: No Vision needs: No Questionnaire PHQ-9 Over the last 2 weeks, how often have you been bothered by any of the following problems? 6. Feeling bad about yourself - or that you are a failure or have let yourself or your family down: not at all Source: Developed by Drs. Ollie Gray, Vanessa Mclean, Michael Crook and colleagues, with an educational cecilia from [employer] Thrive Questionnaire Date Thrive assessed: 01/08/25 I am a: Patient What is your living situation today?: I have a steady place to live Within the past 12 months, did the food you bought not last and you didn't have the money to get more?: Never true Within the past 12 months, did you worry whether your food would run out before you got money to buy more?: Never true Do you have trouble paying for medicines?: No Do you have trouble getting transportation to medical appointments?: No Do you have trouble paying your heating and electricity bill?: No Do you have trouble taking care of your child, family member or friend?: I choose not to answer this question Do you have trouble with day-to-day activities such as bathing, preparing meals, shopping, managing finances, etc.?: No Are you currently unemployed and looking for a job?: No Are you interested in more education?: No Please select the resources that you would like help with: None Currently or been in a relationship where the following occur: No concerns reported THRIVE Score: 0 JC-7 AMB Questionnaire JC-7 Date JC - 7 assessed: 01/08/25 Source: Developed by Drs. Ollie Gray, Vanessa Mclean, Michael Crook and colleagues, with an educational cecilia from [employer]. Physical exam (Primary Care) Vital Signs: Last Vital Signs Temp 97.3 F 04/19/25 10:54 Pulse 88 04/19/25 10:54 BP 128/66 04/19/25 10:54 Pulse Ox 98 04/19/25 10:54 Oxygen Delivery Method Room Air 04/19/25 10:54 BMI result Body Mass Index 35.9 Tobacco/Smoking Status: Tobacco use Status Tobacco use date assessed 04/19/25 04/19/25 10:59 Patient Tobacco Use Status Never used Tobacco 04/19/25 10:59 e-Cigarette/Vaping Use Never Used 04/19/25 10:59 Thrive Assessment: Date of Thrive Assessment Date Thrive assessed 01/08/25 04/19/25 10:59 Currently or been in a relationship where the following occur: No concerns reported Const General: alert; No acute distress Eyes Conjunctivae: conjunctivae normal Resp Auscultation: clear to auscultation bilaterally Cardio Rate: regular rate Rhythm: regular rhythm GI Inspection: Yes normal to inspection Extrem General: Yes normal to inspection and No edema Coding Level of Care Code Est Pt Level 4 (63220) Complex EM visit Add On G2211 Diagnoses Type 2 diabetes mellitus with hyperglycemia, with long-term current use of insulin E11.65; Z79.4 Diabetes mellitus intermodal customer service insulin use: with intermodal customer service use Essential hypertension I10 Hypertension type: essential hypertension Obesity (BMI 30-39.9) E66.9 Gastroesophageal reflux disease without esophagitis K21.9 Esophagitis presence: without esophagitis Hypercholesterolemia E78.00 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 Schizophrenia type: disorganized schizophrenia Mild intermittent asthma without complication J45.20 Asthma complication type: uncomplicated Asthma persistence: intermittent Asthma severity: mild Assessment & Plan Assessment & Plan (1) Type 2 diabetes mellitus with hyperglycemia: Code(s): E11.65 - Type 2 diabetes mellitus with hyperglycemia Category: Medical Qualifiers: Diabetes mellitus retirement insulin use: with intermodal customer service use Qualified Code(s): E11.65 - Type 2 diabetes mellitus with hyperglycemia; Z79.4 - nursing home (current) use of insulin Plan: Decrease the amount of carbohydrate intake, pasta, bread, rice and potatoes are all sugar and that is aside from all the sweet stuff, remember that fruits are good but they are Sweet also. Patient is being followed up by Endocrinology on Jardiance 25 mg once a day NovoLog mix 70 30, metformin pioglitazone Mounjaro. (2) Hypertension: Code(s): I10 - Essential (primary) hypertension Category: Medical Qualifiers: Hypertension type: essential hypertension Qualified Code(s): I10 - Essential (primary) hypertension Plan: Continue with blood pressure medication. Decrease salt intake and exercise on lisinopril 5 mg once a day (3) Obesity (BMI 30-39.9): Code(s): E66.9 - Obesity, unspecified Category: Medical Plan: Diet and exercise (4) GERD (gastroesophageal reflux disease): Code(s): K21.9 - Gastro-esophageal reflux disease without esophagitis Category: Medical Qualifiers: Esophagitis presence: without esophagitis Qualified Code(s): K21.9 - Gastro-esophageal reflux disease without esophagitis Plan: Avoid the foods that causes that usually spicy foods, tomato products, juices, coffee, soda and foods that your sensitive to. After eating do not lie down, allow 3-4 hours before in lie down. And keep the head of bed above 30 degrees to avoid the acid from going up. (5) Hypercholesterolemia: Code(s): E78.00 - Pure hypercholesterolemia, unspecified Category: Medical Plan: Avoid fried foods, chicken skin, eggs, butter margarine, pastries and meat. Be it pork or beef they have a lot of cholesterol LDL goal of less than 100 and triglyceride of less than 150 patient is on fenofibrate and atorvastatin only (6) Schizophrenia: Comment: Tra Brookegilberto Code(s): F20.9 - Schizophrenia, unspecified Category: Medical Qualifiers: Schizophrenia type: disorganized schizophrenia Qualified Code(s): F20.1 - Disorganized schizophrenia Plan: Continue with counseling and therapy (7) Asthma: Code(s): J45.909 - Unspecified asthma, uncomplicated Category: Medical Qualifiers: Asthma complication type: uncomplicated Asthma persistence: intermittent Asthma severity: mild Qualified Code(s): J45.20 - Mild intermittent asthma, uncomplicated Plan History of Present Illness The patient is a 55-year-old male presenting for a follow-up visit. He has a history of diabetes mellitus, hypertension, schizophrenia, asthma, gastroesophageal reflux disease, hepatic steatosis, hypercholesterolemia, and anemia. The patient's diabetes mellitus is being managed with multiple medications including Jardiance, Novolog Mix 70/30, pioglitazone, Mounjaro, and metformin. His hemoglobin A1c was recorded at 6.2% on April 05, indicating good control, although there are concerns about episodes of hypoglycemia. He is advised to maintain regular meals to prevent low blood sugar episodes and is under endocrinology care for diabetes management. The patient has hypertension, which is controlled with lisinopril 5 mg daily. He is encouraged to engage in regular physical activity to aid in weight management and overall health. The patient has hypercholesterolemia, with an LDL level of 52 mg/dL and triglycerides at 285 mg/dL as of January 31. He is on atorvastatin and fenofibrate to manage his cholesterol levels, with dietary modifications recommended to address elevated triglycerides. The patient has been reminded about the importance of colon cancer screening and has been provided with a Cologuard test kit for stool testing. He has not yet completed the test and is encouraged to do so to avoid the need for a colonoscopy. Health Maintenance - Colon cancer screening with Cologuard test kit provided - Encouraged regular physical activity for weight management - Dietary modifications recommended to manage triglyceride levels Social History - Diet primarily consists of rice, beans, and vegetables, with limited intake of fried foods and desserts - Limited physical activity reported Review of Systems - Endocrine: Reports episodes of hypoglycemia - General: Reports feeling tired - Gastrointestinal: Denies nausea or vomiting Physical Exam - Abdominal examination: No surgical findings noted Results - Labs: Hemoglobin A1c 6.2% (April 05) - Labs: LDL 52 mg/dL, Triglycerides 285 mg/dL (January 31) - Labs: Anemia with hemoglobin 12.2 g/dL and hematocrit 37.5% Plan The patient will continue to manage diabetes mellitus with the current regimen of Jardiance, Novolog Mix 70/30, pioglitazone, Mounjaro, and metformin, with close monitoring by endocrinology. He is advised to maintain regular meals to prevent hypoglycemic episodes and to report any low blood sugar events to his employment agency manager. Hypertension management will continue with lisinopril 5 mg daily, and the patient is encouraged to engage in regular physical activity to support cardiovascular health and weight management. For hypercholesterolemia, the patient will remain on atorvastatin and fenofibrate, with dietary modifications to address elevated triglycerides. The patient is reminded to complete the Cologuard test for colon cancer screening to avoid the need for a colonoscopy. Patient was informed and verbally consented to the use of an ambient scribe for clinic note documentation during this visit. Discussion Notes I discussed with the patient the importance of managing diabetes mellitus through medication adherence and regular meals to prevent hypoglycemia. We reviewed the need for regular physical activity to support cardiovascular health and weight management. I emphasized the importance of completing the Cologuard test for colon cancer screening and discussed the potential need for a colonoscopy if the test is not completed. Patient Instructions - Take all diabetes medications as prescribed and maintain regular meals to prevent low blood sugar. - Continue lisinopril 5 mg daily for blood pressure management. - Engage in regular physical activity to support weight management and cardiovascular health. - Follow dietary recommendations to manage triglyceride levels. - Complete the Cologuard test for colon cancer screening.
[2025-04-19 10:54] VITALS: BP 128/66; PULSE 88; TEMP 36.3; O2SAT 98; BMI 35.9
--- OUTSIDE RECORDS SUMMARY | 2025-04-19 11:47 | XMS_ITS | Clinical Summary ---
Author Organization 175 [facility] Address [address] [place] [address] Phone Care Team Providers Care Bottle Inspector Name Role Phone Karol Coronel MD Primary Care Provider [phone] Allergies No known active allergies Medications albuterol [...] as a child Diabetes [place], [place] [place] [facility] [place] 03/15/2012 GERD (gastroesophageal reflux disease) 2 Hypertension 03/15/2012 Obesity 03/15/2012 Reactive airway disease 03/15/2012 Schizoaffective disorder, de pressive type [place] [place] [facility] [place] 03/15/2012 Surgical History Surgery Date Site/Laterality Comments APPENDECTOMY PROCEDURE: [place] APPENDECTOMY Medical History Medical History Date Comments [...] Care Team (Late st Contact Info) Description 06/19/2025 10:00 AM EDT Office Visit Orthopedic Surgery - [place] [address] [phone] Devaughn Goodwin, DPM [address] [address] Health Maintenance Due Date Last Done Comments [...] Insurance MEDICARE MEDICAID - [place] Care Teams Bottle Inspector Relationship Specialty Start Date End Date Karol Coronel MD [address] [place] [address] Dr [address] [facility] [place] [address] PCP - General 08/29/24
== END 2025-04-19 11:30 | disposition home or self-care (01) ==
LOC: HO.HMCH 10:44
PROVIDERS: PCP Internal Medicine; Visit Provider Internal Medicine
DX: E11.65 Type 2 diabetes mellitus with hyperglycemia (principal); Z79.4 Long term (current) use of insulin; F20.1 Disorganized schizophrenia; E66.9 Obesity, unspecified; Z68.35 Body mass index [BMI] 35.0-35.9, adult; I10 Essential (primary) hypertension; K21.9 Gastro-esophageal reflux disease without esophagitis; E78.00 Pure hypercholesterolemia, unspecified; J45.20 Mild intermittent asthma, uncomplicated

== ENCOUNTER → 2025-04-19 10:43 | Outpatient (BNVA) | payer MEDICARE, MEDICAID, SELFPAY | PROVIDERS: PCP Internal Medicine; Visit Provider Internal Medicine | DX: E11.65 Type 2 diabetes mellitus with hyperglycemia (principal); I10 Essential (primary) hypertension; E66.9 Obesity, unspecified; K21.9 Gastro-esophageal reflux disease without esophagitis; E78.00 Pure hypercholesterolemia, unspecified; F20.1 Disorganized schizophrenia; J45.20 Mild intermittent asthma, uncomplicated; Z79.4 Long term (current) use of insulin | CPT/HCPCS: 99212 ==

== ENCOUNTER 2025-04-23 15:49 | Outpatient (REF) | payer MEDICARE, MEDICAID, SELFPAY ==
[2025-04-23 16:00] LABS: MANUAL DIFF FLAG NO
[2025-04-23 17:07] LABS: Basophils Percent Auto 0.4 % (0-2); Eosinophils Absolute Auto 0.1 X10*3/uL (0.0-0.4); Eosinophils Percent Auto 0.5 % (0-4); Hematocrit 39.2 % (42.0-52.0); Hemoglobin 12.3 g/dl (14.0-18.0); Imm Gran Abs Auto 0.05 X10*3/uL (0.00-0.03); Imm Gran Pct Auto 0.5 % (0.0-0.4); Lymphocytes Absolute Auto 2.1 X10*3/uL (1.2-4.9); Lymphocytes Percent Auto 19.4 % (20-40); Mean Corpuscular HGB Conc 31.4 g/dl (31.0-36.0); Mean Corpuscular Hemoglobin 27.6 pg (27.0-33.0); Mean Corpuscular Volume 87.9 fL (80.0-98.0); Mean Platelet Volume 12.4 fL (9.4-12.4); Monocytes Absolute Auto 0.7 X10*3/uL (0.1-1.2); Monocytes Percent Auto 6.4 % (2-11); Neutrophils Percent Auto 72.8 % (45-73); Platelet Count 221 X10*3/uL (160-400); Red Blood Count 4.46 X10*6/uL (4.60-5.80); Red Cell Distribution Width 14.4 % (11.0-16.0); White Blood Count 10.9 X10*3/uL (4.8-10.8)
--- OUTSIDE RECORDS SUMMARY | 2025-04-23 18:16 | XMS_ITS | Clinical Summary ---
Author Organization 175 [facility] Address 175 [place] [address] Phone Care Team Providers Care Hematology Specialist Name Role Phone Karol Coronel MD Primary Care Provider [phone] Allergies No known active allergies Medications albuterol [...] as a child Diabetes mellitus, type II [place] [place] [facility] [place] 03/15/2012 GERD (gastroesophageal reflux disease) 2 Hypertension 03/15/2012 Obesity 03/15/2012 Reactive airway disease 03/15/2012 Schizoaffective disorder, de pressive type [place] [place] [facility] [place] 03/15/2012 Surgical History Surgery Date Site/Laterality [...] AM EDT Office Visit Orthopedic Surgery - [place] [address] [phone] Devaughn Goodwin, DPM [address] [address] Health Maintenance Due Date Last Done Comments [...] Insurance MEDICARE [place] - [place] Care Teams Hematology Specialist Relationship Specialty Start Date End Date Karol Coronel MD [address] [place] [address] Dr [address] [facility] [place] [address] PCP - General 08/29/24
== END 2025-04-23 15:50 | disposition home or self-care (01) ==
LOC: HO.LABR 15:49
PROVIDERS: PCP Internal Medicine
DX: Z79.899 Other long term (current) drug therapy (principal)
CPT/HCPCS: 36415; 85025

== ENCOUNTER 2025-05-28 14:24 | Outpatient (REF) | payer MEDICARE, MEDICAID, SELFPAY ==
[2025-05-28 14:37] LABS: MANUAL DIFF FLAG NO
[2025-05-28 15:01] LABS: Hematocrit 37.6 % (42.0-52.0); Hemoglobin 11.8 g/dl (14.0-18.0); Imm Gran Abs Auto 0.01 X10*3/uL (0.00-0.03); Imm Gran Pct Auto 0.1 % (0.0-0.4); Lymphocytes Absolute Auto 2.6 X10*3/uL (1.2-4.9); Mean Corpuscular HGB Conc 31.4 g/dl (31.0-36.0); Mean Corpuscular Hemoglobin 27.4 pg (27.0-33.0); Mean Corpuscular Volume 87.2 fL (80.0-98.0); NRBC Abs Auto 0.000 X10*3/uL (0.0-0.012); NRBC Pct Auto 0.0 /100WBC (0.0-0.2); Platelet Count 239 X10*3/uL (160-400); Red Blood Count 4.31 X10*6/uL (4.60-5.80); White Blood Count 6.9 X10*3/uL (4.8-10.8)
--- OUTSIDE RECORDS SUMMARY | 2025-05-28 15:40 | XMS_ITS | Clinical Summary ---
Author Organization 175 [facility] Address [address] [place] [address] Phone Care Team Providers Care Accounts Manager Name Role Phone Karol Coronel MD Primary Care Provider [phone] Allergies No known active allergies Medications albuterol [...] as a child Diabetes mellitus, type II [place] [place] [facility] [place] 03/15/2012 GERD (gastroesophageal reflux disease) 2 Hypertension 03/15/2012 Obesity 03/15/2012 Reactive airway disease 03/15/2012 Schizoaffective disorder, de pressive type [place] [place] [facility] [place] 03/15/2012 Surgical History Surgery Date Site/Laterality Comments APPENDECTOMY PROCEDURE: ID APPENDECTOMY Medical History Medical History Date Comments [...] AM EDT Office Visit Orthopedic Surgery - [place] [address] [phone] Devaughn Goodwin, DPM [address] [address] Health Maintenance Due Date Last Done Comments Diabetes: Annual GFR (Glomerular Filtration Rate) 1971 Diabetes: Annual Foot Exam 1981 Diabetes: Annual Retina Eye Exam 1981 Hepatitis B Vaccines (1 of 3 - 19+ 3-dose series) 1990 Pneumococcal Vaccine: 50+ Years (2 of 2 - PCV) 03/15/2018 03/15/2017 Zoster Vaccines (1 of 2) 2021 COVID-19 Vaccine (4 - season) 2024 09/03/2022, 02/05/2021, 01/15/2021 Depression Screening 11/07/2024 Cholesterol Screening (Lipid Panel) 11/12/2024 Colorectal Cancer Screening: Colonoscopy 11/12/2024 HIV Screening 11/12/2024 Hepatitis C Screening 11/12/2024 Medicare Annual Wellness Visit 11/12/2024 Social Influencers of Health Screening 11/12/2024 Diabetes: Annual Urine Albumin-Creatinine Ratio (uACR) 11/13/2024 Diabetes: Blood Sugar Control Test (HGBA1C) 11/13/2024 Hypertension/CHF/CAD Annual BMP Blood Test 11/13/2024 Influenza Vaccine (#1) 2025 , 08/25/2023, 09/03/2022, Additional history exists DTaP,Tdap,and Td Vaccines (2 - Td or Tdap) 05/05/2033 05/05/2023 HIB Vaccines Aged Out No longer eligi [...] Insurance MEDICARE [place] - [place] Care Teams Accounts Manager Relationship Specialty Start Date End Date Karol Coronel MD [address] [place] [address] [address] [facility] [place] [address] PCP - General 08/29/24
== END 2025-05-28 14:25 | disposition home or self-care (01) ==
LOC: HO.LABR 14:24
DX: Z79.899 Other long term (current) drug therapy (principal)
CPT/HCPCS: 36415; 85025

== ENCOUNTER 2025-06-21 14:26 | Outpatient (REF) | payer MEDICARE, MEDICAID, SELFPAY ==
--- OUTSIDE RECORDS SUMMARY | 2025-06-21 14:29 | XMS_ITS | Clinical Summary ---
Author Organization 175 [facility] Address [address] [place] [address] Phone Care Team Providers Care Director Software Quality Assurance Name Role Phone Karol Coronel MD Primary Care Provider [phone] Allergies No known active allergies Medications albuterol [...] as a child Diabetes mellitus, type II [place] [place] [facility] [place] 03/15/2012 GERD (gastroesophageal reflux disease) 2 Hypertension 03/15/2012 Obesity 03/15/2012 Reactive airway disease 03/15/2012 Schizoaffective disorder, de pressive type [place] [place] [facility] [place] 03/15/2012 Surgical History Surgery Date Site/Laterality Comments APPENDECTOMY PROCEDURE: [place] APPENDECTOMY Medical History Medical History Date Comments [...] 01/07/2025 2:35 PM EST Plan of Treatment Health Maintenance Due Date Last Done Comments Diabetes: Annual GFR (Glomerular Filtration Rate) 1971 Diabetes: Annual Foot Exam 1981 Diabetes: Annual Retina Eye Exam 1981 Hepatitis B Vaccines (1 of 3 - 19+ 3-dose series) 1990 Pneumococcal Vaccine: 50+ Years (2 of 2 - PCV) 03/15/2018 03/15/2017 Zoster Vaccines (1 of 2) 2021 COVID-19 Vaccine ( - season) 2024 09/03/2022, 02/05/2021, 01/15/2021 Depression Screening 11/07/2024 Cholesterol Screening (Lipid Panel) 11/12/2024 Colorectal Cancer Screening: Colonoscopy 11/12/2024 HIV Screening 11/12/2024 Hepatitis C Screening 11/12/2024 Medicare Annual Wellness Visit 11/12/2024 Social Influencers of Health Screening 11/12/2024 Diabetes: Annual Urine Albumin-Creatinine Ratio (uACR) 11/13/2024 Diabetes: Blood Sugar Control Test (HGBA1C) 11/13/2024 Hypertension/CHF/CAD Annual BMP Blood Test 11/13/2024 Influenza Vaccine (#1) 2025 4, 08/25/2023, 09/03/2022, Additional history exists DTaP,Tdap,and Td [...] Insurance [place]ICARE [place] - [place] Care Teams Director Software Quality Assurance Relationship Specialty Start Date End Date Karol Coronel MD [address] [place] [address] [address] [facility] [place] [address] PCP - General 08/29/24
[2025-06-21 15:40] LABS: Cholesterol 105 mg/dL (<200); HDL Cholesterol 21 mg/dL (>40); Triglycerides 204 mg/dL (<150)
== END 2025-06-21 14:27 | disposition home or self-care (01) ==
LOC: HO.LAB 14:26
PROVIDERS: Nurse Practitioner Adult Health; PCP Internal Medicine
DX: E11.65 Type 2 diabetes mellitus with hyperglycemia (principal); Z79.4 Long term (current) use of insulin; Z79.899 Other long term (current) drug therapy
CPT/HCPCS: 36415; 80061; 82570

== ENCOUNTER 2025-07-05 10:26 | Outpatient (AMB) | payer MEDICARE, MEDICAID, SELFPAY ==
[2025-07-05 10:28] VITALS: BP 130/80; PULSE 100; O2SAT 97; BMI 36.2
--- NOTE | 2025-07-05 10:28 | A.OFFVIS_ITS ---
Vital Signs 07/05/25 10:28 Height 5 ft 11 in Weight 259 lb 4.218 oz BMI 36.2 BP 130/80 Blood Pressure Location Lt brachial Position Sitting Pulse 100 Pulse Source Pulse Oximeter Pulse Oximetry (%) 97 Oxygen Delivery Method Room Air Intake Visit Reasons: Type 2 DM Intake Note: Patient present today for Type 2 Diabetes Mellitus Last Diabetic eye exam: Up to date, unsure of exact month he had it done Last Podiatry Visit: 04/2025 Random Glucose: 133 mg/dl HgA1C: 6.1% Manager Wound Care Required: No Accompanied by: CHD worker Allergies No Known Allergies Allergy (Unknown, Verified 07/05/25 10:36) NOT APPLICABLE Medication List - Last Reconciled 07/05/25 by Mel Monroy PA-C acetaminophen (Tylenol Extra Strength) 500 mg PO Q6H PRN alcohol swabs (Alcohol Prep Pads) use topically 4X/DAY; atorvastatin 10 mg PO DAILY 90 days benztropine 1 mg PO BEDTIME bisacodyl (Dulcolax (bisacodyl)) 10 mg (2 x 5 mg) PO ONCE 1 day bisacodyl (Dulcolax (bisacodyl)) 20 mg (4 x 5 mg) PO ONCE 1 day blood pressure monitor (Blood Pressure Kit) As directed blood sugar diagnostic (FreeStyle Lite Strips) USE DIRECTED 3 TIMES A DAY brimonidine 0.1% (Alphagan P) 1 drp ophthalmic (eye) .BID R eye 30 days cholecalciferol (vitamin D3) 50 mcg PO DAILY clozapine (Clozaril) 200 mg PO daily at 5pm; clozapine (Clozaril) 300 mg PO BEDTIME PRN diphenhydramine HCl (Banophen) 50 mg PO BEDTIME PRN divalproex ER (Depakote ER) 500 mg PO DAILY divalproex ER (Depakote ER) 1,000 mg PO DAILY docusate sodium (Colace) 100 mg PO BID 90 days empagliflozin (Jardiance) 25 mg PO DAILY fenofibrate 160 mg orally every day at 5pm; glucose (Dex4 Glucose) 12 grams (3 x 4 gram) PO Q15M PRN haloperidol 2.5 mg PO BID insulin asp prt-insulin aspart 100 unit/mL (70-30) (Novolog Mix 70-30FlexPen U- 100) 86 units before breakfast 60 units before supper subcutaneously 2 times a day; 30 days latanoprost 0.005% (Xalatan) 1 drp ophthalmic (eye) BID lisinopril 5 mg PO DAILY metformin 1,000 mg PO BID 90 days naproxen (Naprosyn) 500 mg PO BID omeprazole 20 mg PO DAILY pen needle, diabetic (BD Shayy 2nd Gen Pen Needle) 5 times a day pen needle, diabetic (BD Shayy 2nd Gen Pen Needle) USE DIRECTED 3 TIMES A DAY pioglitazone 15 mg PO DAILY 30 days polyethylene glycol 3350 (Miralax) 238 grams PO ONCE 1 day [pressure cuf monitor As directed] sennosides (senna) 17.2 mg PO BEDTIME sertraline (Zoloft) 150 mg PO DAILY tirzepatide (Mounjaro) 12.5 mg (0.5 mL) subcut QWEEK 28 days HPI HPI Type 2 DM: Details: Patient is a 55-year-old male with a significant past medical history of schizophrenia, hypertension, hyperlipidemia, elevated LFTs and type 2 diabetes presenting today for a follow up regarding his diabetes. He was previously following with my colleague. Endo: Dm-he was 1st diagnosed with diabetes. His most recent A1c from March was 6.2. He is currently managed with pioglitazone 15 mg daily, metformin 1000 mg twice a day, Jardiance 25 mg daily, NovoLog mix and Mounjaro 12.5 mg weekly. He has had a few low blood sugars. He states in the last couple of months a few times he has felt like his blood sugar was low. It has been during the day and it improves with ?eating something ?. He is not a very clear historian and does not want to use a sensor. He does not check his blood sugars when he has symptoms of feeling low. He does have a VNA who checks his blood sugars twice a day before administering the NovoLog mix. Has continuously declined sensor He has a family history of type 2 diabetes. CV: Blood pressure today in the office is 130/80. He is currently on lisinopril 5 mg daily. Cholesterol is managed with atorvastatin 10 mg. [facility] Medical History (Updated 01/08/25 @ 13:21 by Karol Coronel MD) Headache Bilateral otitis externa Left otitis media Dyslipidemia Lump of skin of left lower extremity Adjustment disorder RUQ abdominal pain Injury to scrotum custodial (current) use of insulin Blind left eye Obesity (BMI 30-39.9) Diabetic nephropathy GERD (gastroesophageal reflux disease) Vitamin D deficiency Schizophrenia Asthma Type 2 diabetes mellitus with hyperglycemia Hypertension Surgical History History of removal of cyst History of appendectomy Family History Father No problems noted. Mother No problems noted. Social History Housing: Assisted Living Facility Alcohol intake: never Patient Tobacco Use Status: Never used Tobacco e-Cigarette/Vaping Use: Never Used Second Hand Smoke Exposure: No service: No Current occupational status: disabled Cognitive needs: Yes Hearing needs: No Vision needs: No Physical Exam Vital Signs: Last Vital Signs Pulse 100 07/05/25 10:28 BP 130/80 07/05/25 10:28 Pulse Ox 97 07/05/25 10:28 Oxygen Delivery Method Room Air 07/05/25 10:28 BMI result Body Mass Index 36.2 Const Orientation/consciousness: patient oriented x3 HEENT Ears: hearing grossly normal bilaterally Neck Thyroid: Thyroid normal Lymphatic: no lymphadenopathy noted Resp Auscultation: clear to auscultation bilaterally Cardio Rate: regular rate Rhythm: regular rhythm Heart sounds: S1 normal heart sound present and S2 normal heart sound present Skin General skin exam: no rashes or lesions noted Neuro General: patient oriented x3, gait normal and no focal motor deficits Results AMB Hemoglobin A1c AMB Hemoglobin A1c 6.1 % Last Edit by DARIUS Goodman on 07/05/25 11:01 Results Reviewed Results Reviewed: Laboratory Last Values Glucose (Clinic) 133 mg/dL (60-115) H 07/05/25 10:38 Hgb A1c (Clinic) 6.1 % (4.0-6.0) H 07/05/25 10:40 Laboratory Tests 11/09/24 01/31/25 04/05/25 10:46 15:30 10:43 Estimated GFR > 60 Hgb A1c (Clinic) 8.5 H 6.2 H Triglycerides Cholesterol LDL Cholesterol, Calc HDL Cholesterol 06/21/25 14:35 Estimated GFR Hgb A1c (Clinic) Triglycerides 204 H Cholesterol 105 LDL Cholesterol, Calc 44 HDL Cholesterol 21 L Assessment & Plan Assessment & Plan (1) Type 2 diabetes mellitus with hyperglycemia: Code(s): E11.65 - Type 2 diabetes mellitus with hyperglycemia Category: Medical Qualifiers: Diabetes mellitus technician terminal and repeater insulin use: with technician terminal and repeater use Qualified Code(s): E11.65 - Type 2 diabetes mellitus with hyperglycemia; Z79.4 - custodial (current) use of insulin Plan: continue metformin 1000 mg bid, jardiance 25 mg daily, Actos 15 mg daily Increase Mounjaro to 15 mg weekly Reduce the NovoLog mix to 76 units before breakfast and 50 units before dinner -they will call me if he develops any low blood sugars. (2) Hypertension: Code(s): I10 - Essential (primary) hypertension Category: Medical Qualifiers: Hypertension type: essential hypertension Qualified Code(s): I10 - Essential (primary) hypertension Plan: wnl continue current plan Orders: Orders AMB Hemoglobin A1c Today E11.65 - Type 2 diabetes mellitus with hyperglycemia, Z13.9 - Encounter for screening, unspecified, Z79.4 - custodial (current) use of insulin Medications: New tirzepatide (Mounjaro) 15 mg (0.5 mL) subcut QWEEK 6 mL 3RF Changed From insulin asp prt-insulin aspart 100 unit/mL (70-30) (Novolog Mix 70- 30FlexPen U-100) 86 units before breakfast 60 units before supper subcutaneously 2 times a day; 30 days 45 mL 4RF To insulin asp prt-insulin aspart 100 unit/mL (70-30) (Novolog Mix 70-30FlexPen U-100) 76 units before breakfast 50 units before supper subcutaneously 2 times a day; 45 mL 4RF 30 days Discontinued tirzepatide (Mounjaro) Discontinued Reason: Doctor's Order 12.5 mg (0.5 mL) subcut QWEEK 28 days 2 mL 6RF Coding Level of Care Code Est Pt Level 4 (91024) Complex EM visit Add On G2211 Diagnoses Type 2 diabetes mellitus with hyperglycemia, with long-term current use of insulin E11.65; Z79.4 Diabetes mellitus assisted insulin use: with technician terminal and repeater use Essential hypertension I10 Hypertension type: essential hypertension
[2025-07-05 10:41] LABS: Glucose, Whole Blood 133 mg/dL (60-115)
--- OUTSIDE RECORDS SUMMARY | 2025-07-05 11:08 | XMS_ITS | Clinical Summary ---
Author Organization 175 [facility] Address 175 [place] [address] Phone Care Team Providers Care Residence Hall Director Name Role Phone Karol Coronel MD Primary Care Provider [phone] Allergies No known active allergies Medications albuterol [...] as a child Diabetes mellitus, type II ([facility] [place] V24, [facility] [place] [place] V28) 03/15/2012 GERD (gastroesophageal reflux disease) 2 Hypertension 03/15/2012 Obesity 03/15/2012 Reactive airway disease 03/15/2012 Schizoaffective disorder, de pressive type ([facility] [place] [place] V24, [facility] [place] [place] V28) 03/15/2012 Surgical History Surgery Date Site/Laterality Comments APPENDECTOMY PROCEDURE: [place] APPENDECTOMY Medical History Medical History Date Comments [...] Care Team (Late st Contact Info) Description 08/12/2025 2:45 PM EDT Office Visit Orthopedic Surgery - [place] [address] [phone] Devaughn Goodwin, DPM [address] [address] Health Maintenance Due Date Last Done Comments [...] Insurance MEDICARE MEDICAID - [place] Care Teams Residence Hall Director Relationship Specialty Start Date End Date Karol Coronel MD [address] [place] [address] [address] [facility] [place] [address] PCP - General 08/29/24
== END 2025-07-05 11:03 | disposition home or self-care (01) ==
LOC: HO.ENCR 10:27
PROVIDERS: PCP Internal Medicine; Visit Provider Physician Assistant
DX: Z13.9 Encounter for screening, unspecified (principal); E11.65 Type 2 diabetes mellitus with hyperglycemia; Z79.4 Long term (current) use of insulin; I10 Essential (primary) hypertension

== ENCOUNTER → 2025-07-05 10:26 | Outpatient (BNVA) | payer MEDICARE, MEDICAID, SELFPAY | PROVIDERS: PCP Internal Medicine; Visit Provider Physician Assistant | DX: E11.65 Type 2 diabetes mellitus with hyperglycemia (principal); I10 Essential (primary) hypertension; Z79.4 Long term (current) use of insulin | CPT/HCPCS: 82947; 83036; 99212 ==

== ENCOUNTER 2025-08-13 14:51 | Outpatient (REF) | payer MEDICARE, MEDICAID, SELFPAY ==
--- OUTSIDE RECORDS SUMMARY | 2025-08-12 14:45 | XMS_ITS | Encounter Summary ---
Author Organization [facility] Address [id number] [place] [phone] Care Team Providers Care Structural Mill Supervisor Name Role Phone Karol Coronel MD Primary Care Provider [phone] Reason for Visit * Reason Comments DM Foot Care Encounter Details Date Type Department Care Team (Late st Contact Info) Description 08/12/2025 2:45 PM EDT Office Visit Orthopedic Surgery - [place] [address] [phone] Devaughn Goodwin DPM [address] [address] Acquired hammer toe of right foot (Primary Dx); Hammer toe of left foot; Dermatophytosis of nail; Tinea pedis of both feet; Diabetic mononeuropathy simplex (CMS/HCC V24, CMS/HCC V28); Pain in toe of right foot; Pain in toe of left foot Social History Tobacco Use Types Packs/Day Years [...] as of this encounter Progress Notes * Devaughn Goodwin DPM - 08/12/2025 2:45 PM EDT Last PCP visit:Referring MD: Rosalinda Logan PA 06/28/25 S HPI: Presents today for evaluation of his feet suffers from blindness type 2 diabetes has severe elongated painful thickened nails states he has rash and itchy skin he states that he has fungus of both feet pain discomfort a 5 out of 10 on a visual analog scale presents today by himself endorses numbness burning tingling in both feet Reports worsening curling of his toes states his toes been curling worse and walking on toes to bother him more often ROS: GENERAL: Pt denies nausea, fever, vomiting, [...] of left eye Diabetes mellitus, type II ([facility] V24, [facility] V28) GERD (gastroesophageal reflux disease) Hypertension Obesity Reactive airway disease Schizoaffective disorder, depressive type ([facility] V24, [facility] V28) SOCIAL HISTORY: Social History Tobacco Use Smoking status: Former Smokeless tobacco: Not on file Substance Use Topics Alcohol use: No ACTIVE MEDICATIONS: Outpatient Medications Marked as Taking for the 08/12/25 encounter (Office Visit) with Devaughn Newton DPM Medication Sig Dispense Refill albuterol HFA (PROVENTIL HFA;VENTOLIN HFA) 108 (90 Base) MCG/ACT inhaler Inhale 2 Puffs into the lungs every 4 hours as needed for Cough or Wheezing. alcohol swabs pads, medicated USE TOPICALLY 4 TIMES A DAY Alphagan P 0.1 % ophthalmic solution PONGA BILLY GOTA EN LOS DOS OJOS DOS VECES AL D A atorvastatin (LIPITOR) 10 mg tablet TOME BILLY TABLETA POR V A ORAL TODOS LOS D Banophen 50 mg capsule TOME 1 C PSULA POR V A ORAL TODOS LOS D AL ACOSTARSE CUANDO SEA NECESARIO benztropine (COGENTIN) 1 mg tablet TOME 1 TABLETA POR V A ORAL DOS VECES AL D A blood sugar diagnostic (FreeStyle Lite Strips) test strip as directed cholecalciferol (VITAMIN D-3) 25 mcg (1,000 unit) [...] 2 times daily as needed for Constipation. fenofibrate (LOFIBRA) 160 mg tablet TOME BILLY TABLETA POR V A ORAL TODOS LOS D AT 5PM haloperidoL (HALDOL) 5 mg tablet take one half (0.5) tablets by mouth twice a day insulin aspart protamine-insulin aspart (NovoLOG 70/30 FlexPen) 100 unit/mL (70- 30) injection pen INJECT 76 UNITS BEFORE BREAKFAST,50 UNITS BEFORE SUPPER SUBCUTANEOUSLY 2 TIMES A DAY latanoprost (XALATAN) 0.005 % ophthalmic solution PONGA BILLY GOTA EN LOS DOS OJOS TODOS LOS D PORLA NOCHE lisinopriL (PRINIVIL,ZESTRIL) 5 mg tablet Take 1 Tab by mouth daily. metFORMIN (GLUCOPHAGE) 500 mg tablet Take 500 mg. Twice daily Shayy 2nd Gen Pen Needle 32 gauge x needle as directed omeprazole (PriLOSEC) [address] capsule TOME 1 C PSULA POR V A ORAL TODOS LOS D pantoprazole (PROTONIX) 40 mg EC tablet Take 1 Tab by mouth daily. pioglitazone (ACTOS) 15 mg tablet TOME 1 TABLETA POR V A ORAL TODOS LOS D senna 8.6 mg tablet TOME DOS TABLETAS POR V A ORAL TODOS LOS D CUANDO SEA NECESARIO PARA EL ESTRE IMIENTO ALLERGIES: No Known Allergies PHYSICAL EXAM: Visit Vitals Smoking Status Former PODIATRIC EXAMINATION: GENERAL: Patient appears well nourished, [...] MTJ ROM wnl, 1st MPJ ROM wnl. Hammertoe contractures 2 through 5 semireducible bilateral IMAGING: IMPRESSION: 1. Acquired hammer toe of right foot 2. Hammer toe of left foot 3. Dermatophytosis of nail 4. Tinea pedis of both feet 5. Diabetic mononeuropathy simplex (CMS/HCC V24, CMS/HCC V28) 6. Pain in toe of right foot 7. Pain in toe of left foot PLAN: Pt was seen and examined, history reviewed. Hammertoe contracture deformities both feet discussed and reviewed possible use of silicone toe sleeves to because wider shoe gear reviewed Discussed with patient regarding proper glucose control, exercise, and diet. Explained to patient proper shoe gear, and importance of daily foot checks. I reviewed neuropathy and why it occurs in diabetics. I educated the patient on proper blood sugar control and the importance of an HgBA1c of less than 7.0%. I reviewed the signs and symptoms of neuropathy with the patient Clotrimazole continue with miconazole spray continue with both medications represcribed Pt to return for another evaluation in 3 months. Debridement of mycotic toenails 6-10: Verbal informed consent was obtained from the patient. Greater than 6 nails were aseptically debrided in thickness and length with nail nippers Devaughn Goodwin DPM documented in this encounter Plan of Treatment Upcoming Encounters Date Type Department Care Team (Late st Contact Info) Description 11/12/2025 10:30 AM EST Office Visit Orthopedic Surgery - [place] 250 175 [facility] 250 [place] [address] Devaughn Goodwin, DPM 175 [facility] [address] [place] [address] documented as of this encounter Visit Diagnoses Diagnosis Acquired hammer toe of right foot- Primary Hammer toe of left foot Dermatophytosis of nail Tinea pedis of both feet Diabetic mononeuropathy simplex (CMS/HCC V24, CMS/HCC V28) Type II or unspecified type diabetes mellitus with neurological manifestations, not stated as uncontrolled Pain in toe of right foot Pain in soft tissues of limb Pain in toe of left foot Pain in soft tissues of limb documented in this encounter Historical Medications * This list may reflect changes made after this encounter. senna 8.6 mg tablet TOME DOS TABLETAS POR V A ORAL TODOS LOS D CUANDO SEA NECESARIO PARA EL ESTRE IMIENTO 05/31/2025 Shayy 2nd Gen Pen Needle 32 gauge x 5/32 needle as directed 05/23/2025 pioglitazone (ACTOS) 15 mg tablet TOME 1 TABLETA POR V A ORAL TODOS LOS D 08/07/2025 Banophen 50 mg capsule TOME 1 C PSULA POR V A ORAL TODOS LOS D AL ACOSTARSE CUANDO SEA NECESARIO 05/31/2025 blood sugar diagnostic (FreeStyle Lite Strips) test strip as directed 08/07/2025 haloperidoL (HALDOL) 5 mg tablet take one half (0.5) tablets by mouth twice a day 07/10/2025 insulin aspart protamine-insul in aspart (NovoLOG 70/30 FlexPen) 100 unit/mL (70-30) injection pen INJECT 76 UNITS BEFORE BREAKFAST,50 UNITS BEFORE SUPPER SUBCUTANEOUSLY 2 TIMES A DAY 07/09/2025 latanoprost (XALATAN) 0.005 % ophthalmic solution PONGA BILLY GOTA EN LOS DOS OJOS TODOS LOS D POR LA NOCHE 05/30/2025 omeprazole (PriLOSEC) [address] capsule TOME 1 C PSULA POR V A ORAL TODOS LOS D 08/07/2025 fenofibrate (LOFIBRA) 160 mg tablet TOME BILLY TABLETA POR V A ORAL TODOS LOS D AT 5PM 07/05/2025 Alphagan P 0.1 % ophthalmic solution PONGA BILLY GOTA EN LOS DOS OJOS DOS VECES AL D A 05/24/2025 benztropine (COGENTIN) 1 mg tablet TOME 1 TABLETA POR V A ORAL DOS VECES AL D A 06/21/2025 atorvastatin (LIPITOR) 10 mg tablet TOME BILLY TABLETA POR V A ORAL TODOS LOS D 07/12/2025 alcohol swabs pads, medicated USE TOPICALLY 4 TIMES A DAY 07/26/2025 added in this encounter Care Teams Structural Mill Supervisor Relationship Specialty Start Date End Date Karol Coronel MD [address] [place] [address] [address] [facility] [place] [place] [address] PCP - General 08/29/24 documented as of this encounter
[2025-08-13 15:00] LABS: MANUAL DIFF FLAG NO
[2025-08-13 15:11] LABS: Hematocrit 36.2 % (42.0-52.0); Hemoglobin 11.6 g/dl (14.0-18.0); Imm Gran Abs Auto 0.02 X10*3/uL (0.00-0.03); Imm Gran Pct Auto 0.3 % (0.0-0.4); Lymphocytes Absolute Auto 2.9 X10*3/uL (1.2-4.9); Mean Corpuscular HGB Conc 32.0 g/dl (31.0-36.0); Mean Corpuscular Hemoglobin 27.6 pg (27.0-33.0); Mean Corpuscular Volume 86.2 fL (80.0-98.0); NRBC Abs Auto 0.000 X10*3/uL (0.0-0.012); NRBC Pct Auto 0.0 /100WBC (0.0-0.2); Platelet Count 234 X10*3/uL (160-400); Red Blood Count 4.20 X10*6/uL (4.60-5.80); White Blood Count 7.1 X10*3/uL (4.8-10.8)
--- OUTSIDE RECORDS SUMMARY | 2025-08-13 18:10 | XMS_ITS | Clinical Summary ---
Author Organization 175 [facility] Address 175 [place] [address] Phone Care Team Providers Care Inventory Audit Clerk Name Role Phone Karol Coronel MD Primary Care Provider [phone] Allergies No known active allergies Medications albuterol HFA (PROVENTIL HFA;VENTOLIN HFA) 108 (90 Base) MCG/ACT inhaler Inhale 2 Puffs into the lungs every 4 hours as needed for Cough or Wheezing. 2 Active cloZAPine (CLOZARIL) 100 mg tablet Take 2 Tabs by mouth daily. 2 Active docusate sodium (COLACE) 100 mg capsule Take 1 Cap by mouth 2 times daily as needed for Constipation. 2 Active divalproex (DEPAKOTE ER) 500 mg 24 hr tablet Take 2 Tabs by mouth daily. 2 Active divalproex (DEPAKOTE) [address] tablet Take 1 Tab by mouth 2 times daily. 2 Active metFORMIN (GLUCOPHAGE) 500 mg tablet Take 500 mg. Twice daily 2 Active clonazePAM (KlonoPIN) 0.5 mg tablet Take 1 Tab by mouth 2 times daily as needed for Anxiety. 2 Active pantoprazole (PROTONIX) 40 mg EC tablet Take 1 Tab by mouth daily. 2 Active cholecalcifero l (VITAMIN D-3) 25 mcg (1,000 unit) tablet Take 1,000 Caps by mouth. 2 Active lisinopriL (PRINIVIL,ZEST RIL) 5 mg tablet Take 1 Tab by mouth daily. 2 Active alcohol swabs pads, medicated USE TOPICALLY 4 TIMES A DAY 5 Active atorvastatin (LIPITOR) 10 mg tablet TOME BILLY TABLETA POR V A ORAL TODOS LOS D 5 Active benztropine (COGENTIN) 1 mg tablet TOME 1 TABLETA POR V A ORAL DOS VECES AL D A 5 Active Alphagan P 0.1 % ophthalmic solution PONGA BILLY GOTA EN LOS DOS OJOS DOS VECES AL D A 5 Active fenofibrate (LOFIBRA) 160 mg tablet TOME BILLY TABLETA POR V A ORAL TODOS LOS D AT 5PM 5 Active omeprazole (PriLOSEC) [address] capsule TOME 1 C PSULA POR V A ORAL TODOS LOS D 5 Active latanoprost (XALATAN) 0.005 % ophthalmic solution PONGA BILLY GOTA EN LOS DOS OJOS TODOS LOS D POR LA NOCHE 5 Active insulin aspart protamine-insu kenneth aspart (NovoLOG 70/30 FlexPen) 100 unit/mL (70-30) injection pen INJECT 76 UNITS BEFORE BREAKFAST,50 UNITS BEFORE SUPPER SUBCUTANEOUSLY 2 TIMES A DAY 5 Active haloperidoL (HALDOL) 5 mg tablet take one half (0.5) tablets by mouth twice a day 5 Active blood sugar diagnostic (FreeStyle Lite Strips) test strip as directed 5 Active Banophen 50 mg capsule TOME 1 C PSULA POR V A ORAL TODOS LOS D AL ACOSTARSE CUANDO SEA NECESARIO 5 Active pioglitazone (ACTOS) 15 mg tablet TOME 1 TABLETA POR V A ORAL TODOS LOS D 5 Active Shayy 2nd Gen Pen Needle 32 gauge x 5/32 needle as directed 5 Active senna 8.6 mg tablet TOME DOS TABLETAS POR V A ORAL TODOS LOS D CUANDO SEA NECESARIO PARA EL ESTRE IMIENTO 5 Active Active Problems Problem Noted Date Diagnosed Date Blindness of left eye 03/15/2012 Overview (11/13/2024): Injury as a child Diabetes mellitus, type II (CMS/HCC V24, CMS/HCC V28) 03/15/2012 GERD (gastroesophageal reflux disease) 2 Hypertension 03/15/2012 Obesity 03/15/2012 Reactive airway disease 03/15/2012 Schizoaffective disorder, de pressive type ([facility] V24, [facility] V28) 03/15/2012 Encounters Date Type Department Care Team Description 08/12/2025 2:45 PM EDT Office Visit Orthopedic Surgery [facility] [address] [phone] Devaughn Goodwin, DANYA Acquired hammer toe of right foot (Primary Dx); Hammer toe of left foot; Dermatophytosis of nail; Tinea pedis of both feet; Diabetic mononeuropathy simplex ([facility] V24, [facility] V28); Pain in toe of right foot; Pain in toe of left foot from Last 3 Months Surgical History Surgery [...] Upcoming Encounters Date Type Department Care Team ([facility] st Contact Info) Description 11/12/2025 10:30 AM EST Office Visit Orthopedic Surgery [facility] 250 175 [facility] 250 [place] [phone] Devaughn Goodwin DPM 175 [facility] [address] [place] [address] Health Maintenance Due Date Last Done Comments Colorectal Cancer Screening: Colonoscopy 1971 Diabetes: Annual GFR (Glomerular Filtration Rate) 1971 Diabetes: Annual Foot Exam 1981 Diabetes: Annual Retina Eye Exam 1981 Hepatitis B Vaccines (1 of 3 - 19+ 3-dose series) 1990 Pneumococcal Vaccine: 50+ Years (2 of 2 - PCV) 03/15/2018 03/15/2017 Zoster Vaccines (1 of 2) 2021 Depression Screening 11/07/2024 Cholesterol Screening (Lipid Panel) 11/12/2024 HIV Screening 11/12/2024 Hepatitis C Screening 11/12/2024 Medicare Annual Wellness Visit 11/12/2024 Social Influencers of Health Screening 11/12/2024 Diabetes: Annual Urine Albumin-Creatinine Ratio (uACR) 11/13/2024 Diabetes: Blood Sugar Control Test (HGBA1C) 11/13/2024 Hypertension/CHF/CAD Annual BMP Blood Test 11/13/2024 COVID-19 Vaccine ( season) 2025 09/03/2022, 02/05/2021, 01/15/2021 Influenza Vaccine (#1) 2025 , 08/25/2023, 09/03/2022, Additional history exists DTaP,Tdap,and Td Vaccines (2 - Td or Tdap) 05/05/2033 05/05/2023 RSV Immunization Adult Patients (1 - 1-dose 75+ series) 2046 HIB Vaccines Aged Out No longer eligi [...] Insurance MEDICARE MEDICAID - [place] Care Teams Inventory Audit Clerk Relationship Specialty Start Date End Date Karol Coronel MD [address] [place] [address] Dr [address] [facility] [place] [address] PCP - General 08/29/24
== END 2025-08-13 14:52 | disposition home or self-care (01) ==
LOC: HO.LABR 14:51
PROVIDERS: PCP Internal Medicine
DX: Z79.899 Other long term (current) drug therapy (principal)
CPT/HCPCS: 36415; 85025

== ENCOUNTER 2025-08-19 10:40 | Outpatient (AMB) | payer MEDICARE, MEDICAID, SELFPAY ==
--- OUTSIDE RECORDS SUMMARY | 2025-08-19 10:43 | XMS_ITS | Clinical Summary ---
Author Organization 175 [facility] Address [address] [place] [address] Phone Care Team Providers Care Supply Chain Vice President Name Role Phone Karol Coronel MD Primary Care Provider [phone] Allergies No known active allergies Medications albuterol [...] disease 03/15/2012 Schizoaffective disorder, de pressive type ([facility] V24, [facility] V28) 03/15/2012 Encounters Date Type Department Care Team Description 08/12/2025 2:45 PM EDT Office Visit Orthopedic Surgery [facility] [address] [phone] Devaughn Goodwin, DANYA Acquired hammer toe of right foot (Primary Dx); Hammer toe of left foot; Dermatophytosis of nail; Tinea pedis of both feet; Diabetic mononeuropathy simplex ([facility] V24, [facility] V28); Pain in toe of right foot; [...] Upcoming Encounters Date Type Department Care Team ([facility] st Contact Info) Description 11/12/2025 10:30 AM EST Office Visit Orthopedic Surgery [facility] 250 175 [facility] [address] [place] [phone] Devaughn Goodwin DPM 175 [facility] [address] [place] [address] Health Maintenance Due Date Last [...] Insurance MEDICARE MEDICAID - [place] Care Teams Supply Chain Vice President Relationship Specialty Start Date End Date Karol Coronel MD [address] [place] [address] [address] [facility] [place] [address] PCP - General 08/29/24
[2025-08-19 10:47] VITALS: BP 128/78; PULSE 91; O2SAT 98; BMI 36.1
--- NOTE | 2025-08-19 10:47 | MHC.PC.OV ---
Vital Signs 08/19/25 10:47 Height 5 ft 11 in Weight 259 lb BMI 36.1 BP 128/78 Blood Pressure Location Lt brachial Position Sitting Pulse 91 Pulse Source Pulse Oximeter Pulse Oximetry (%) 98 Oxygen Delivery Method Room Air Intake Visit Reasons: 3mth f/u Allergies No Known Allergies Allergy (Unknown, Verified 08/19/25 10:48) NOT APPLICABLE Tobacco use date assessed: 04/19/25 Dental Screening Dental Screen Date: 11/27/24 [facility] Medical History (Updated 01/08/25 @ 13:21 by Karol Coronel MD) Headache Bilateral otitis externa Left otitis media Dyslipidemia Lump of skin of left lower extremity Adjustment disorder RUQ abdominal pain 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 Mother No problems noted. Social History Housing: Assisted Living Facility Alcohol intake: never Patient Tobacco Use Status: Never used Tobacco Tobacco use type: Cigarette e-Cigarette/Vaping Use: Never Used Second Hand Smoke Exposure: No service: No Current occupational status: disabled Cognitive needs: Yes Hearing needs: No Vision needs: No Questionnaire Thrive Questionnaire Date Thrive assessed: 01/08/25 I am a: Patient What is your living situation today?: I have a steady place to live Within the past 12 months, did the food you bought not last and you didn't have the money to get more?: Never true Within the past 12 months, did you worry whether your food would run out before you got money to buy more?: Never true Do you have trouble paying for medicines?: No Do you have trouble getting transportation to medical appointments?: No Do you have trouble paying your heating and electricity bill?: No Do you have trouble taking care of your child, family member or friend?: I choose not to answer this question Do you have trouble with day-to-day activities such as bathing, preparing meals, shopping, managing finances, etc.?: No Are you currently unemployed and looking for a job?: No Are you interested in more education?: No Please select the resources that you would like help with: None Currently or been in a relationship where the following occur: No concerns reported THRIVE Score: 0 JC-7 AMB Questionnaire JC-7 Date JC - 7 assessed: 01/08/25 Source: Developed by Drs. Ollie Gray, Vanessa Mclean, Michael Crook and colleagues, with an educational cecilia from [employer]. Physical exam (Primary Care) Vital Signs: Last Vital Signs Pulse 91 08/19/25 10:47 BP 128/78 08/19/25 10:47 Pulse Ox 98 08/19/25 10:47 Oxygen Delivery Method Room Air 08/19/25 10:47 BMI result Body Mass Index 36.1 Tobacco/Smoking Status: Tobacco use Status Tobacco use date assessed 04/19/25 08/19/25 10:52 Patient Tobacco Use Status Never used Tobacco 08/19/25 10:52 Tobacco use type Cigarette 08/19/25 10:52 e-Cigarette/Vaping Use Never Used 08/19/25 10:52 Thrive Assessment: Date of Thrive Assessment Date Thrive assessed 01/08/25 08/19/25 10:52 Currently or been in a relationship where the following occur: No concerns reported Const General: alert; No acute distress Eyes Conjunctivae: conjunctivae normal Resp Auscultation: clear to auscultation bilaterally Cardio Rate: regular rate Rhythm: regular rhythm GI Inspection: Yes normal to inspection Extrem General: Yes normal to inspection and No edema Office Procedures Flu Questionnaire Does the patient have a severe egg allergy?: No Does the patient have severe life threatening allergies?: No Does the patient have a fever or illness today?: No Has the patient ever had Guillain-Redrock Syndrome?: No Has the patient ever had any past reaction to a flu shot?: No Immunizations Fluarix [id number] (PF) 45 mcg (15 mcg x 3)/0.5 mL IM syringe Performing Provider: Karol Coronel MD [facility] Administered by: DARIUS Sepulveda on 08/19/25 11:17 Dose Route Admin Location Dispensed Lot Number Expiration Date [facility] Travel Coordinator 0.5 mL IM Left Deltoid 0.5 mL [id number] 05/06/26 [id number] [employer] VIS Given Date VIS Provided VIS Publication Date 08/19/25 Single Vaccine 24 Eligibility Eligibility Date Funding Source Not VF Eligible 08/19/25 Private Coding Level of Care Code Est Pt Level 4 (30117) Complex EM visit Add On G2211 Diagnoses Type 2 diabetes mellitus with hyperglycemia, with long-term current use of insulin E11.65; Z79.4 Diabetes mellitus detention insulin use: with technician terminal and repeater use Essential hypertension I10 Hypertension type: essential hypertension Hypercholesterolemia E78.00 Obesity (BMI 30-39.9) E66.9 Gastroesophageal reflux disease without esophagitis K21.9 Esophagitis presence: without esophagitis Fatty liver K76.0 Colon cancer screening Z12.11 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 Schizophrenia type: disorganized schizophrenia Assessment & Plan Assessment & Plan (1) Type 2 diabetes mellitus with hyperglycemia: Code(s): E11.65 - Type 2 diabetes mellitus with hyperglycemia Category: Medical Qualifiers: Diabetes mellitus technician terminal and repeater insulin use: with technician terminal and repeater use Qualified Code(s): E11.65 - Type 2 diabetes mellitus with hyperglycemia; Z79.4 - [facility]CI (current) use of insulin Plan: Decrease the amount of carbohydrate intake, pasta, bread, rice and potatoes are all sugar and that is aside from all the sweet stuff, remember that fruits are good but they are Sweet also. Hemoglobin A1c goal of less than 6.5. Patient is being followed up by Endocrinology on metformin, pioglitazone, Jardiance, NovoLog mix and Mounjaro. Adjustment of Mounjaro done as well as decrease in insulin. Podiatry note appreciated (2) Hypertension: Code(s): I10 - Essential (primary) hypertension Category: Medical Qualifiers: Hypertension type: essential hypertension Qualified Code(s): I10 - Essential (primary) hypertension Plan: Continue with blood pressure medication. Decrease salt intake and exercise takes lisinopril at 5 mg once a day (3) Hypercholesterolemia: Code(s): E78.00 - Pure hypercholesterolemia, unspecified Category: Medical Plan: Avoid fried foods, chicken skin, eggs, butter margarine, pastries and meat. Be it pork or beef they have a lot of cholesterol last test was October. Request for blood test to be done in 2-3 months (4) Obesity (BMI 30-39.9): Code(s): E66.9 - Obesity, unspecified Category: Medical Plan: Diet and exercise (5) GERD (gastroesophageal reflux disease): Code(s): K21.9 - Gastro-esophageal reflux disease without esophagitis Category: Medical Qualifiers: Esophagitis presence: without esophagitis Qualified Code(s): K21.9 - Gastro-esophageal reflux disease without esophagitis Plan: Avoid the foods that causes that usually spicy foods, tomato products, juices, coffee, soda and foods that your sensitive to. After eating do not lie down, allow 3-4 hours before in lie down. And keep the head of bed above 30 degrees to avoid the acid from going up. (6) Fatty liver: Code(s): K76.0 - Fatty (change of) liver, not elsewhere classified Category: Medical Plan: Low-fat diet and exercise (7) Colon cancer screening: Code(s): Z12.11 - Encounter for screening for malignant neoplasm of colon Category: Medical Plan: Patient is reminded about colon testing. (8) Schizophrenia: Comment: Tra Diego Code(s): F20.9 - Schizophrenia, unspecified Category: Medical Qualifiers: Schizophrenia type: disorganized schizophrenia Qualified Code(s): F20.1 - Disorganized schizophrenia Plan: Continue with counseling and therapy Plan History of Present Illness The patient is a 55-year-old male presenting for a follow-up visit. He has a history of obesity, diabetes mellitus, hypertension, asthma, schizophrenia, gastroesophageal reflux disease, hepatic steatosis, and hypercholesterolemia. The patient has been managing his diabetes with metformin, Jardiance, Actos, and Mounjaro, which was recently increased to 15 mg once a week. His insulin regimen includes Novolog Mix, with a decrease to 76 units before breakfast and 50 units before dinner. His hemoglobin A1c was recorded at 6.1 in June 2025, indicating good glycemic control. The patient has a history of hepatic steatosis and renal calculi, which have been stable. He is also being followed by endocrinology and podiatry for his conditions. Preventative care measures include a reminder for colon cancer screening, which is overdue, and a referral to gastroenterology has been made. The patient is also scheduled for routine blood work and a urine test in the coming months. Health Maintenance - Colon cancer screening: Referral to gastroenterology for overdue colonoscopy - Routine blood work and urine test scheduled in 2-3 months - Flu shot to be administered during the visit Social History Review of Systems Physical Exam Results - Labs: Hemoglobin A1c recorded at 6.1 in June 2025 - Labs: Mild anemia noted with hemoglobin at 11.6 and hematocrit at 36.2 Plan Patient was informed and verbally consented to the use of an ambient scribe for clinic note documentation during this visit. 1. Diabetes Mellitus The patient is managing diabetes with metformin, Jardiance, Actos, and Mounjaro, which was increased to 15 mg weekly. The insulin regimen includes Novolog Mix, decreased to 76 units before breakfast and 50 units before dinner. The goal is to maintain hemoglobin A1c below 6.5, with the last recorded level at 6.1. 2. Hypertension The patient is on lisinopril 5 mg once daily for blood pressure management. 3. Hypercholesterolemia The last LDL test was in October 2024, with a request for a follow-up blood test in 2-3 months. 4. Gastroesophageal Reflux Disease (Gerd) The patient is advised to follow a no-fat diet and engage in regular exercise to manage GERD symptoms. 5. Preventative Care: Colon Cancer Screening A referral to gastroenterology for a colonoscopy has been made, as the patient is overdue for screening. Discussion Notes During the visit, we discussed the importance of maintaining glycemic control with the current diabetes management plan, including the recent adjustment of Mounjaro dosage. We also reviewed the need for regular blood pressure monitoring and adherence to lisinopril therapy. The patient was informed about the overdue colonoscopy for colon cancer screening and a referral to gastroenterology was made. Patient Instructions - Continue current diabetes medications and monitor blood sugar levels regularly. - Take lisinopril 5 mg once daily as prescribed. - Follow a no-fat diet and engage in regular exercise to manage GERD symptoms. - Schedule and attend the colonoscopy appointment as referred. - Get the flu shot during today's visit. 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 Free T4 (Free Thyroxine) 2 Months E11.65 - Type 2 diabetes mellitus with hyperglycemia, Z79.4 - [facility] (current) use of insulin IRON PROFILE 2 Months E11.65 - Type 2 diabetes mellitus with hyperglycemia, Z79.4 - [facility] (current) use of insulin Microalbumin, Random (w Creat) 2 Months E11.65 - Type 2 diabetes mellitus with hyperglycemia, Z79.4 - [facility] (current) use of insulin Creatinine Urine 2 Months E11.65 - Type 2 diabetes mellitus with hyperglycemia, Z79.4 - [facility] (current) use of insulin Prostate Specific Antigen Scr 2 Months E11.65 - Type 2 diabetes mellitus with hyperglycemia, Z79.4 - 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
== END 2025-08-19 11:22 | disposition home or self-care (01) ==
LOC: HO.HMCH 10:41
PROVIDERS: PCP Internal Medicine; Visit Provider Internal Medicine
DX: E11.65 Type 2 diabetes mellitus with hyperglycemia (principal); Z79.4 Long term (current) use of insulin; I10 Essential (primary) hypertension; E78.00 Pure hypercholesterolemia, unspecified; E66.9 Obesity, unspecified; K21.9 Gastro-esophageal reflux disease without esophagitis; K76.0 Fatty (change of) liver, not elsewhere classified; Z12.11 Encounter for screening for malignant neoplasm of colon; F20.1 Disorganized schizophrenia; Z23 Encounter for immunization

== ENCOUNTER → 2025-08-19 10:40 | Outpatient (BNVA) | payer MEDICARE, MEDICAID, SELFPAY | PROVIDERS: PCP Internal Medicine; Visit Provider Internal Medicine | DX: E11.65 Type 2 diabetes mellitus with hyperglycemia (principal); I10 Essential (primary) hypertension; E78.00 Pure hypercholesterolemia, unspecified; E66.9 Obesity, unspecified; K21.9 Gastro-esophageal reflux disease without esophagitis; F20.1 Disorganized schizophrenia; K76.0 Fatty (change of) liver, not elsewhere classified; Z23 Encounter for immunization; Z79.4 Long term (current) use of insulin; Z79.899 Other long term (current) drug therapy; Z79.84 Long term (current) use of oral hypoglycemic drugs; Z87.442 Personal history of urinary calculi; Z68.36 Body mass index [BMI] 36.0-36.9, adult | CPT/HCPCS: 90471; 90656; 99212 ==

== ENCOUNTER 2025-09-30 10:22 | Outpatient (AMB) | payer MEDICARE, MEDICAID, SELFPAY ==
--- NOTE | 2025-09-30 10:25 | MHC.OFFVIS ---
Vital Signs 09/30/25 10:28 Weight 257 lb 0.944 oz BP 110/70 Blood Pressure Location Lt brachial Position Sitting Pulse 96 Pulse Source Pulse Oximeter Pulse Oximetry (%) 97 Oxygen Delivery Method Room Air Intake Visit Reasons: DMT2 Follow-up Intake Note: Patient present today for Type 2 Diabetes Mellitus Last Diabetic eye exam: Last exam was on 08/2025 Last Podiatry Visit: Last seen about 3 week ago Random Glucose: 124 mg/dl HgA1C: 5.9% Beam Press Operator Required: No Accompanied by: Outreach staff Allergies No Known Allergies Allergy (Unknown, Verified 09/30/25 10:31) NOT APPLICABLE HPI HPI DMT2 Follow-up: Details: Patient is a 55-year-old male with a significant past medical history of schizophrenia, hypertension, hyperlipidemia, elevated LFTs and type 2 diabetes presenting today for a follow up regarding his diabetes. He was previously following with my colleague. Endo: Dm-His most recent A1c was 5.9. He is currently managed with pioglitazone 15 mg daily, metformin 1000 mg twice a day, Jardiance 25 mg daily, NovoLog mix 76 and 50 units and Mounjaro 15 mg weekly. He has had a few low blood sugars. He can not tell me how many times it has happened. The VNA has not noticed any low blood sugars. He states in the last 3 months he has felt like his blood sugar was a little bit low. It improves with eating something. He has not actually checked his blood sugar at the time of feeling a little lightheaded. He is still does not want a sensor. He does have a VNA who checks his blood sugars twice a day before administering the NovoLog mix. Has continuously declined sensor He has a family history of type 2 diabetes. CV: Blood pressure today in the office is 110/70. He is currently on lisinopril 5 mg daily. Cholesterol is managed with atorvastatin 10 mg. 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 Mother No problems noted. Social History Housing: Assisted Living Facility Alcohol intake: never Patient Tobacco Use Status: Never used Tobacco Tobacco use type: Cigarette e-Cigarette/Vaping Use: Never Used Second Hand Smoke Exposure: No service: No Current occupational status: disabled Cognitive needs: Yes Hearing needs: No Vision needs: No Physical Exam Vital Signs: Last Vital Signs Pulse 96 09/30/25 10:28 BP 110/70 09/30/25 10:28 Pulse Ox 97 09/30/25 10:28 Oxygen Delivery Method Room Air 09/30/25 10:28 Const Orientation/consciousness: patient oriented x3 HEENT Ears: hearing grossly normal bilaterally Neck Thyroid: Thyroid normal Lymphatic: no lymphadenopathy noted Resp Auscultation: clear to auscultation bilaterally Cardio Rate: regular rate Rhythm: regular rhythm Heart sounds: S1 normal heart sound present and S2 normal heart sound present Skin General skin exam: no rashes or lesions noted Neuro General: patient oriented x3, gait normal and no focal motor deficits Results AMB Hemoglobin A1c AMB Hemoglobin A1c 5.9 % Last Edit by DARIUS Goodman on 09/30/25 10:45 Results Reviewed Results Reviewed: Laboratory Last Values Glucose (Clinic) 124 mg/dL (60-115) H 09/30/25 10:35 Laboratory Tests 01/31/25 04/05/25 06/21/25 15:30 10:43 14:35 Creatinine 0.79 Estimated GFR > 60 Hgb A1c (Clinic) 6.2 H Triglycerides 204 H Cholesterol 105 LDL Cholesterol, Calc 44 HDL Cholesterol 21 L 07/05/25 10:40 Creatinine Estimated GFR Hgb A1c (Clinic) 6.1 H Triglycerides Cholesterol LDL Cholesterol, Calc HDL Cholesterol Assessment & Plan Assessment & Plan (1) Type 2 diabetes mellitus with hyperglycemia: Code(s): E11.65 - Type 2 diabetes mellitus with hyperglycemia Category: Medical Qualifiers: Diabetes mellitus mcfp insulin use: with grain elevator man use Qualified Code(s): E11.65 - Type 2 diabetes mellitus with hyperglycemia; Z79.4 - retirement (current) use of insulin Plan: continue metformin 1000 mg bid, jardiance 25 mg daily, Actos 15 mg daily, Mounjaro to 15 mg weekly Reduce the NovoLog mix to 70 units before breakfast and 40 units before dinner Reviewed rule of 15. Glucose tabs ordered -they will call me if he develops any low blood sugars. (2) Hypertension: Code(s): I10 - Essential (primary) hypertension Category: Medical Qualifiers: Hypertension type: essential hypertension Qualified Code(s): I10 - Essential (primary) hypertension Plan: wnl continue current plan Orders: Orders AMB Hemoglobin A1c Today E11.65 - Type 2 diabetes mellitus with hyperglycemia, Z13.9 - Encounter for screening, unspecified, Z79.4 - retirement (current) use of insulin Medications: New glucose (Dex4 Glucose) until symptoms of low blood sugar are controlled 16 grams (4 x 4 gram) PO Q15M PRN 100 tabs 3RF hypoglycemia Changed From insulin asp prt-insulin aspart 100 unit/mL (70-30) (Novolog Mix 70-30FlexPen U-100) 76 units before breakfast 50 units before supper subcutaneously 2 times a day; 30 days 45 mL 4RF To insulin asp prt-insulin aspart 100 unit/mL (70-30) (Novolog Mix 70-30FlexPen U-100) 70 units before breakfast and 40 units before supper subcutaneously 2 times a day; 45 mL 4RF 30 days Patient Instructions: continue metformin 1000 mg bid, jardiance 25 mg daily, Actos 15 mg daily, Mounjaro to 15 mg weekly Reduce the NovoLog mix to 70 units before breakfast and 40 units before dinner Coding Level of Care Code Est Pt Level 4 (77066) Diagnoses Type 2 diabetes mellitus with hyperglycemia, with long-term current use of insulin E11.65; Z79.4 Diabetes mellitus grain elevator man insulin use: with mcfp use Essential hypertension I10 Hypertension type: essential hypertension
[2025-09-30 10:28] VITALS: BP 110/70; PULSE 96; O2SAT 97
[2025-09-30 10:39] LABS: Glucose, Whole Blood 124 mg/dL (60-115)
--- OUTSIDE RECORDS SUMMARY | 2025-09-30 12:47 | XMS_ITS | Clinical Summary ---
Author Organization 175 [facility] Address [address] [place] [address] Phone Care Team Providers Care Charrer Name Role Phone Karol Coronel MD Primary Care Provider [phone] Allergies No known active allergies Medications albuterol [...] disease 03/15/2012 Schizoaffective disorder, de pressive type ([facility] V24, [facility] V28) 03/15/2012 Encounters Date Type Department Care Team Description 08/12/2025 2:45 PM EDT Office Visit Orthopedic Surgery [facility] [address] [phone] Devaughn Goodwin, DANYA Acquired hammer toe of right foot (Primary Dx); Hammer toe of left foot; Dermatophytosis of nail; Tinea pedis of both feet; Diabetic mononeuropathy simplex ([facility] V24, [facility] V28); Pain in toe of right foot; Pain in toe of left foot from Last 3 Months Surgical History Surgery Date Site/Laterality Comments APPENDECTOMY PROCEDURE: GA APPENDECTOMY Medical History Medical History Date Comments [...] Upcoming Encounters Date Type Department Care Team ([facility] st Contact Info) Description 11/12/2025 10:30 AM EST Office Visit Orthopedic Surgery [facility] 250 175 [facility] 250 [place] [phone] Devaughn Goodwin DPM 175 [facility] [address] [place] [address] Health Maintenance Due Date Last Done Comments Colorectal Cancer Screening: Colonoscopy 1971 Diabetes: Annual GFR (Glomerular Filtration Rate) 1971 Diabetes: Annual Foot Exam 1981 Diabetes: Annual Retina Eye Exam 1981 Hepatitis B Vaccines (1 of 3 - 19+ 3-dose series) 1990 Pneumococcal Vaccine: 50+ Years (2 of 2 - PCV) 03/15/2018 03/15/2017 RSV Immunization Adult Patients (1 - Risk 50-74 years 1-dose series) 2021 Zoster Vaccines (1 of 2) 2021 Depression [...] Insurance MEDICARE MEDICAID - [place] Care Teams Charrer Relationship Specialty Start Date End Date Karol Coronel MD [address] [place] [address] [address] [facility] [place] [address] PCP - General 08/29/24
== END 2025-09-30 10:57 | disposition home or self-care (01) ==
LOC: HO.ENCR 10:23
PROVIDERS: PCP Internal Medicine; Visit Provider Physician Assistant
DX: Z13.9 Encounter for screening, unspecified (principal); E11.65 Type 2 diabetes mellitus with hyperglycemia; Z79.4 Long term (current) use of insulin; I10 Essential (primary) hypertension

== ENCOUNTER → 2025-09-30 10:22 | Outpatient (BNVA) | payer MEDICARE, MEDICAID, SELFPAY | PROVIDERS: PCP Internal Medicine; Visit Provider Physician Assistant | DX: E11.65 Type 2 diabetes mellitus with hyperglycemia (principal); I10 Essential (primary) hypertension; Z79.4 Long term (current) use of insulin | CPT/HCPCS: 82947; 83036; 99212 ==

== ENCOUNTER 2025-10-15 15:35 | Outpatient (REF) | payer MEDICARE, MEDICAID, SELFPAY ==
[2025-10-15 15:49] LABS: MANUAL DIFF FLAG NO
[2025-10-15 16:28] LABS: Hematocrit 37.1 % (42.0-52.0); Hemoglobin 11.8 g/dl (14.0-18.0); Imm Gran Abs Auto 0.02 X10*3/uL (0.00-0.03); Imm Gran Pct Auto 0.3 % (0.0-0.4); Lymphocytes Absolute Auto 2.7 X10*3/uL (1.2-4.9); Mean Corpuscular HGB Conc 31.8 g/dl (31.0-36.0); Mean Corpuscular Hemoglobin 28.0 pg (27.0-33.0); Mean Corpuscular Volume 88.1 fL (80.0-98.0); NRBC Abs Auto 0.000 X10*3/uL (0.0-0.012); NRBC Pct Auto 0.0 /100WBC (0.0-0.2); Platelet Count 219 X10*3/uL (160-400); Red Blood Count 4.21 X10*6/uL (4.60-5.80); White Blood Count 7.9 X10*3/uL (4.8-10.8)
== END 2025-10-15 15:36 ==
LOC: HO.LABR 15:35
PROVIDERS: PCP Internal Medicine
DX: Z79.899 Other long term (current) drug therapy (principal)
CPT/HCPCS: 36415; 85025